=== PATIENT | female | born 1985 | race American Indian/Alaskan Native ===

== ENCOUNTER 2018-11-10 19:57 | Emergency (ER) | payer SELFPAY ==
[2018-11-10 21:01] LABS: Bacteria,Urine 1+ /HPF (Negative); Bilirubin,Urine NEG (Negative); Blood,Urine SM (Negative); Color,Urine Amber (Yellow); Hyaline Casts,Urine 2 /LPF; Mucus,Urine 1+ /HPF
[2018-11-10 21:03] LABS: HCG Qualitative,Urine Negative (Negative)
[2018-11-10] MEDS ORDERED: PEPCID IV ONE (21:19)
[2018-11-10] MEDS ORDERED: BENTYL IM ONE (21:19)
[2018-11-10] MEDS ORDERED: NACL 0.9% 1000 ML 1,000 ML IV ONE (21:19)
[2018-11-10] MEDS ORDERED: ZOFRAN IV ONE (21:19)
[2018-11-10] MEDS ORDERED: TORADOL IV ONE (21:19)
--- NOTE | 2018-11-10 21:22 | Emergency Department Report ---
ED Abdominal Pain HPI - General Chief Complaint: Abdominal Pain Stated Complaint: ABD PAIN Time Seen by Provider: 11/10/18 21:11 Source: patient, EMS Mode of arrival: Stretcher Limitations: No Limitations - History of Present Illness Initial Comments: Patient is a 33-year-old [place] female who has a past medical history of pancreatitis and chronic alcohol abuse. Patient is complaining of epigastric discomfort and nausea and vomiting 3 today. Patient states the crampy pain 6 out of 10 in severity. Patient states that the first time she was diagnosed with pancreatitis pain was a lot worse. Patient admits to drinking 2 glasses of wine today. The patient states the pain radiates diffusely. She denies any fevers chills cough cold congestion or diarrhea at this time. - Related Data Previous Rx's Medication Instructions Recorded Last Taken Type Famotidine [Pepcid] 40 mg PO QHS #10 tablet 11/10/18 Unknown Rx Ondansetron [Zofran Odt] 4 mg PO Q8HR #10 tab.rapdis 11/10/18 Unknown Rx Allergies Allergy/AdvReac Type Severity Reaction Status Date / Time No Known Allergies Allergy Unverified 11/10/18 20:12 ED Review of Systems ROS: Stated complaint: ABD PAIN Other details as noted in HPI Comment: All other systems reviewed and negative ED Past Medical Hx - Past Medical History Previous Medical History?: Yes Additional medical history: Pancreititis - Social History Smoking Status: Unknown if ever smoked - Medications Home Medications: Home Medications Medication Instructions Recorded Confirmed Last Taken Type Famotidine [Pepcid] 40 mg PO QHS #10 tablet 11/10/18 Unknown Rx Ondansetron [Zofran Odt] 4 mg PO Q8HR #10 tab.rapdis 11/10/18 Unknown Rx ED Physical Exam - General Limitations: No Limitations General appearance: alert, in no apparent distress - Head Head exam: Present: atraumatic, normocephalic - Eye Eye exam: Present: normal appearance. Absent: PERRL, EOMI - ENT ENT exam: Present: mucous membranes moist - Neck Neck exam: Present: normal inspection - Respiratory Respiratory exam: Present: normal lung sounds bilaterally. Absent: respiratory distress, wheezes, rales, rhonchi - Cardiovascular Cardiovascular Exam: Present: regular rate, normal rhythm, normal heart sounds. Absent: systolic murmur, diastolic murmur, rubs, gallop - GI/Abdominal GI/Abdominal exam: Present: soft, tenderness (epigastric tenderness to palpation), normal bowel sounds. Absent: distended, guarding, rebound, rigid - Extremities Exam Extremities exam: Present: normal inspection - Back Exam Back exam: Present: normal inspection - Neurological Exam Neurological exam: Present: alert, oriented X3 - Psychiatric Psychiatric exam: Present: normal affect, normal mood - Skin Skin exam: Present: warm, dry, intact, normal color. Absent: rash ED Course Vital Signs 11/10/18 11/10/18 11/10/18 20:03 21:53 21:58 Temperature 97.8 F Pulse Rate 97 H Respiratory 18 Rate Blood Pressure 105/67 96/62 O2 Sat by Pulse 96 Oximetry ED Medical Decision Making - Lab Data Result diagrams: 11/10/18 21:20 11/10/18 21:28 - Medical Decision Making Patient is a 33-year-old asthmatic female past medical history of alcohol abuse and pancreatitis who is presenting with epigastric discomfort and nausea vomiting. Patient is hydrated and given medicine for symptomatic relief and she is feeling improved. Lipase is within normal limits. Patient likely has alcoholic gastritis. Patient given outpatient resources regarding treatment programs the patient be discharged home with medications for symptomatic relief. Critical care attestation.: If time is entered above; I have spent that time in minutes in the direct care of this critically ill patient, excluding procedure time. ED Disposition Clinical Impression: Alcoholic gastritis Qualifiers: Chronicity: acute Gastritis bleeding: without bleeding Qualified Code(s): K29.20 - Alcoholic gastritis without bleeding Disposition: -01 TO HOME OR SELFCARE Is pt being admited?: No Does the pt Need Aspirin: No Condition: Stable Instructions: Gastritis (ED), Abuse of Alcohol (ED), At-Risk Alcohol Use (ED) Referrals: MITALI JARA MD [Primary Care Provider] - 3-5 Days Time of Disposition: 22:27
[2018-11-10 21:40] LABS: Basophils # (Auto) 0.1 K/mm3 (0.0-0.1); Basophils % (Auto) 1.8 % (0.0-1.8); Eosinophils # (Auto) 0.1 K/mm3 (0.0-0.4); Eosinophils % (Auto) 2.2 % (0.0-4.3); Hematocrit 33.5 % (30.3-42.9); Hemoglobin 11.4 gm/dl (10.1-14.3); Lymphocytes # (Auto) 1.8 K/mm3 (1.2-5.4); Lymphocytes % (Auto) 35.5 % (13.4-35.0); Mean Corpuscular HGB Conc 34 % (30-34); Mean Corpuscular Volume 101 fl (79-97); Monocytes # (Auto) 0.4 K/mm3 (0.0-0.8); Monocytes % (Auto) 7.9 % (0.0-7.3); Platelet Count 144 K/mm3 (140-440); Red Blood Count 3.31 M/mm3 (3.65-5.03); Red Cell Distribution Width 18.2 % (13.2-15.2)
[2018-11-10 21:52] LABS: BUN/Creatinine Ratio 13; Blood Urea Nitrogen 9 mg/dL (7-17); Calcium 8.3 mg/dL (8.4-10.2)
[2018-11-10 21:53] LABS: Alanine Aminotransferase 63 units/L (7-56); Albumin 4.2 g/dL (3.9-5); Hemolysis Index 5
[2018-11-10 22:35] VITALS: BP 93/61
== END 2018-11-10 23:00 | disposition home or self-care (01) ==
LOC: ED 19:57
DX: K29.20 Alcoholic gastritis without bleeding (principal); R11.2 Nausea with vomiting, unspecified
CPT/HCPCS: 36415; 80053; 81001; 81025; 83690; 85025; 96361; 96372; 96374; 96375; 99284; J0500; J1885; J2405; J7030

== ENCOUNTER 2019-02-25 10:21 | Inpatient (IN) | payer OTHER ==
[2019-02-25] MEDS ORDERED: HYDROmorphone 1 MG/1 ML INJ IV ONE ×3 (11:35→17:14)
[2019-02-25] MEDS ORDERED: ONDANSETRON 4 MG/2 ML INJ IV ONE (11:35)
[2019-02-25] MEDS ORDERED: SODIUM CHLORIDE 0.9% 1000 ML 1,000 ML IV ONE ×2 (11:35→17:14)
--- NOTE | 2019-02-25 11:39 | Emergency Department Report ---
ED Abdominal Pain HPI - General Chief Complaint: Abdominal Pain Stated Complaint: ABD PAIN Time Seen by Provider: 02/25/19 11:35 Source: EMS Mode of arrival: Wheelchair Limitations: No Limitations - History of Present Illness Initial Comments: Stomach is a very pleasant 33-year-old female who with history of alcohol abuse, hyperthyroidism and pancreatitis who presents with epigastric pain radiating to her back. 9 out of 10 severity sharp dull in nature. She admitted that she did binge drink for her birthday beginning on Wednesday to Wednesday. She drank a total of 1 gallon of liquor. She has had previous hospitalization for pancreatitis. She explains "I admit that I have a problem with alcohol." MD Complaint: abdominal pain -: Gradual, days(s) (3) Location: epigastric Radiation: back Severity: severe Severity scale (0 -10): 9 Quality: aching, sharp, dull Consistency: constant Improves With: nothing Worsens With: nothing Context: other (alcohol abuse pancreatitis) Associated Symptoms: nausea - Related Data Previous Rx's Medication Instructions Recorded Last Taken Type Famotidine [Pepcid] 40 mg PO QHS #10 tablet 11/10/18 Unknown Rx Ondansetron [Zofran Odt] 4 mg PO Q8HR #10 tab.rapdis 11/10/18 Unknown Rx Allergies Allergy/AdvReac Type Severity Reaction Status Date / Time No Known Allergies Allergy Unverified 11/10/18 20:12 ED Review of Systems ROS: Stated complaint: ABD PAIN Other details as noted in HPI Comment: All other systems reviewed and negative Constitutional: denies: fever, malaise Gastrointestinal: abdominal pain, nausea, vomiting. denies: diarrhea ED Past Medical Hx - Past Medical History Previous Medical History?: Yes Hx Asthma: Yes Additional medical history: Pancreititis - Social History Smoking Status: Current Every Day Smoker Substance Use Type: Alcohol, Marijuana Other Social History: Lives with , she is employed - Medications Home Medications: Home Medications Medication Instructions Recorded Confirmed Last Taken Type Famotidine [Pepcid] 40 mg PO QHS #10 tablet 11/10/18 Unknown Rx Ondansetron [Zofran Odt] 4 mg PO Q8HR #10 tab.rapdis 11/10/18 Unknown Rx ED Physical Exam - General Limitations: No Limitations General appearance: alert, in no apparent distress, other (appears uncomfortable pleasant insightful) - Head Head exam: Present: atraumatic, normocephalic - Eye Eye exam: Present: normal appearance - ENT ENT exam: Present: mucous membranes moist - Neck Neck exam: Present: normal inspection, full ROM - Respiratory Respiratory exam: Present: normal lung sounds bilaterally. Absent: respiratory distress, wheezes, rales, rhonchi - Cardiovascular Cardiovascular Exam: Present: regular rate, normal rhythm, normal heart sounds. Absent: systolic murmur, diastolic murmur, rubs, gallop - GI/Abdominal GI/Abdominal exam: Present: soft, normal bowel sounds. Absent: distended, tenderness, guarding, rebound - Extremities Exam Extremities exam: Present: normal inspection - Neurological Exam Neurological exam: Present: alert, oriented X3 - Psychiatric Psychiatric exam: Present: normal affect, normal mood - Skin Skin exam: Present: warm, dry, intact, normal color. Absent: rash ED Course Vital Signs 02/25/19 02/25/19 10:23 11:58 Temperature 97.8 F Pulse Rate 111 H Respiratory 18 20 Rate Blood Pressure 120/92 O2 Sat by Pulse 97 Oximetry ED Medical Decision Making - Lab Data Result diagrams: 02/25/19 12:24 02/25/19 12:24 Laboratory Results - last 24 hr 02/25/19 02/25/19 02/25/19 12:24 12:24 12:24 WBC 6.6 RBC 2.98 L Hgb 10.4 Hct 30.9 MCV 104 H MCH 35 H MCHC 34 RDW 16.4 H Plt Count 165 Lymph % (Auto) 11.1 L [place] % (Auto) 11.1 H Eos % (Auto) 0.6 Baso % (Auto) 0.8 Lymph # 0.7 L [place] # 0.7 Eos # 0.0 Baso # 0.1 Seg Neutrophils % 76.4 H Seg Neutrophils # 5.0 PT 18.3 H INR 1.54 H Sodium 135 L Potassium 2.7 L* Chloride 95.5 L Carbon Dioxide 24 Anion Gap 18 BUN 4 L Creatinine 0.5 L Estimated GFR > 60 BUN/Creatinine Ratio 8 Glucose 107 H Calcium 7.8 L Total Bilirubin 0.90 Direct Bilirubin 0.5 H Indirect Bilirubin 0.4 AST 110 H ALT 32 Alkaline Phosphatase 110 Total Protein 6.8 Albumin 3.5 L Albumin/Globulin Ratio 1.1 Lipase HCG, Qual 02/25/19 02/25/19 12:24 12:24 WBC RBC Hgb Hct MCV MCH MCHC RDW Plt Count Lymph % (Auto) [place] % (Auto) Eos % (Auto) Baso % (Auto) Lymph # [place] # Eos # Baso # Seg Neutrophils % Seg Neutrophils # PT INR Sodium Potassium Chloride Carbon Dioxide Anion Gap BUN Creatinine Estimated GFR BUN/Creatinine Ratio Glucose Calcium Total Bilirubin Direct Bilirubin Indirect Bilirubin AST ALT Alkaline Phosphatase Total Protein Albumin Albumin/Globulin Ratio Lipase 165 H HCG, Qual Negative - Radiology Data Radiology results: report reviewed CT abdomen and pelvis: Abnormal hypoenhancing lesion had a anchors measuring 4.4 cm felt to be more likely a solid mass lesion, mild peripancreatic inflammatory fat stranding Hepatic steatosis hepatomegaly - Medical Decision Making Mrs. Rose is a history of recurrent alcoholic pancreatitis recent alcohol binge this week. Lipase elevated, CT revealed inflammatory changes as well as pancreatic mass. She has persistent pain despite multiple doses of IV hydromorphone. Admitted to the hospital service and stable condition. I suspect early alcoholic liver disease with elevated liver enzyme elevated bilirubin and hepatic steatosis and hepatomegaly. Critical care attestation.: If time is entered above; I have spent that time in minutes in the direct care of this critically ill patient, excluding procedure time. ED Disposition Clinical Impression: Acute pancreatitis, Pancreatic mass, Liver disease due to alcohol Disposition: DC-09 OP ADMIT IP TO THIS HOSP Is pt being admited?: Yes Does the pt Need Aspirin: No Condition: Stable
[2019-02-25 13:04] LABS: Basophils # (Auto) 0.1 K/mm3 (0.0-0.1); Basophils % (Auto) 0.8 % (0.0-1.8); Eosinophils % (Auto) 0.6 % (0.0-4.3); Hematocrit 30.9 % (30.3-42.9); Hemoglobin 10.4 gm/dl (10.1-14.3); Lymphocytes # (Auto) 0.7 K/mm3 (1.2-5.4); Lymphocytes % (Auto) 11.1 % (13.4-35.0); Mean Corpuscular HGB Conc 34 % (30-34); Mean Corpuscular Volume 104 fl (79-97); Monocytes # (Auto) 0.7 K/mm3 (0.0-0.8); Monocytes % (Auto) 11.1 % (0.0-7.3); Platelet Count 165 K/mm3 (140-440); Red Blood Count 2.98 M/mm3 (3.65-5.03); Red Cell Distribution Width 16.4 % (13.2-15.2)
[2019-02-25 13:10] LABS: INR 1.54 (0.87-1.13)
[2019-02-25 13:39] LABS: Alanine Aminotransferase 32 units/L (7-56); Albumin 3.5 g/dL (3.9-5); BUN/Creatinine Ratio 8; Bilirubin,Direct 0.5 mg/dL (0-0.2); Blood Urea Nitrogen 4 mg/dL (7-17); Calcium 7.8 mg/dL (8.4-10.2); Hemolysis Index 2
--- NOTE | 2019-02-25 16:09 | Cat Scan Report ---
CT ABDOMEN AND PELVIS WITH CONTRAST INDICATION / CLINICAL INFORMATION: epigastric pain history of pancreatitis. TECHNIQUE: Axial CT images were obtained through the abdomen and pelvis after 100 mL Omnipaque [address] scans at this location are performed using CT dose reduction for ALARA by means of automated exposure control. COMPARISON: None available. FINDINGS: LOWER CHEST: No significant abnormality. LIVER: Enlarged liver with diffuse hepatic steatosis. No focal lesion. BILIARY SYSTEM: Mild prominence of the common bile duct without overt dilatation. It tapers smoothly in the region of the ampulla. The gallbladder is distended but has normal wall thickness. No perichol ecystic fluid. No calcified stones. PANCREAS: Pancreatic tail is unremarkable. In the pancreatic body and neck, the main duct is prominen t, with diameter about 6 mm, at upper limit of normal range. It tapers smoothly in the pancreatic hea d/ampullary region. There is abnormal hypoenhancing tissue in the region of the pancreatic head and n sherman and abutting the second portion of the duodenum, irregular and difficult to accurately measure, b ut approximately 4.4 x 4 cm in the axial plane on series 2 image 69. This is worrisome for a pancreat ic mass. There is minimal adjacent stranding of the retroperitoneal fat. No definite vascular encase ment. The celiac, SMA, and main portal vein pass near but are not enveloped by the lesion. SPLEEN: No significant abnormality. ADRENALS: No significant abnormality. KIDNEYS and URETERS: No significant abnormality. STOMACH / BOWEL: Stomach is unremarkable. Second portion of the duodenum is distended by gas in the r egion of the head of the pancreas, but there is no definite acute inflammatory obstructive change in the small intestine. Colon is mostly collapsed throughout its length with only small volume of fecal material present. There is submucosal fat deposition throughout the entire large bowel, nonspecific b ut sometimes sequela of previous episodes of inflammation in patients who have inflammatory bowel dis ease. There are a few scattered colonic diverticula but no evidence of acute diverticulitis. PERITONEUM: No free fluid. No free air. No fluid collection. LYMPH NODES: There are a few mildly prominent peripancreatic and mesenteric nodes but no overt lympha denopathy by CT size criteria and no morphologically abnormal nodes are seen. VASCULAR STRUCTURES: No significant abnormality. URINARY BLADDER: No significant abnormality. REPRODUCTIVE ORGANS: No significant abnormality. ADDITIONAL FINDINGS: None. SKELETAL SYSTEM: No significant abnormality. IMPRESSION: 1. Abnormal hypoenhancing lesion in the head of the pancreas measuring 4.4 cm in greatest dimension i s felt more likely to represent a solid mass lesion than hypoenhancement of pancreatic parenchyma due to an early/mild groove pancreatitis. There are a few mildly prominent peripancreatic nodes which ar e potentially reactive, but no definite metastatic lesion is identified. There is mild peripancreatic inflammatory fat stranding. Further endoscopic evaluation is recommended. 2. Hepatomegaly and hepatic steatosis. Signer Name: Juan Main MD Signed: 02/25/2019 4:05 PM Workstation Name: [id number]
[2019-02-25] MEDS ORDERED: diphenhydrAMINE 50 MG/ML VIAL IV ONE (16:25)
[2019-02-25] MEDS ORDERED: POTASSIUM CHLORIDE ER 20 MEQ TAB PO ONE ×2 (17:11→23:34)
--- NOTE | 2019-02-25 18:33 | History and Physical Report ---
History of Present Illness Date of examination: 02/25/19 Date of admission: 02/25/2019 Chief complaint: Epigastric pain and vomiting 3 days History of present illness: 33-year-old female with history of thyrotoxicosis, EtOH dependence and recurrent pancreatitis comes in for epigastric pain and vomiting for the last 3 days. Patient apparently elevated at 1 gallon of liquor celebrating her future birthday which happens to be on [birth year] normal. Patient binges on alcohol every week. Drinks large amounts of liquor once every week. Patient admits to alcohol dependence. Patient had pancreatitis 3-4 times in the past. Now pain is about 10 on a scale of 1-10 and intermittent in nature. Patient is sharp in nature. Intermittent. Also vomiting over 6 times today. Past Medical History Previous Medical History?: Yes Asthma: Yes Additional medical history: Pancreatitis Hyperthyroidism , standing that she is not Surgical history N/a Social History Smoking Status: Current Every Day Smoker Substance Use Type: Alcohol in large amounts every week, Marijuana regularly Lives with , she is employed Family history Htn - Medications Home Medications: Home Medications Medication Instructions Recorded Confirmed Last Taken Type Famotidine [Pepcid] 40 mg PO QHS #10 tablet 11/10/18 Unknown Rx Ondansetron [Zofran Odt] 4 mg PO Q8HR #10 tab.rapdis 11/10/18 Unknown Rx Review of Systems ROS: Stated complaint: ABD PAIN Other details as noted in HPI Comment: All other systems reviewed and negative Constitutional: denies: fever, malaise Gastrointestinal: abdominal pain, nausea, vomiting. denies: diarrhea Medications and Allergies Allergies Allergy/AdvReac Type Severity Reaction Status Date / Time No Known Allergies Allergy Unverified 11/10/18 20:12 Exam - Constitutional Vitals: Temp Pulse Resp BP Pulse Ox 97.8 F 78 18 105/63 96 02/25/19 10:23 02/25/19 18:20 02/25/19 18:20 02/25/19 18:20 02/25/19 18:20 General appearance: Present: no acute distress, well-nourished - EENT Eyes: Present: PERRL ENT: hearing intact, clear oral mucosa - Neck Neck: Present: supple, normal ROM - Respiratory Respiratory effort: normal Respiratory: bilateral: CTA - Cardiovascular Heart rate: 78 Rhythm: regular Heart Sounds: Present: S1 & S2. Absent: rub, click - Extremities Extremities: no ischemia, pulses intact, pulses symmetrical, No edema Peripheral Pulses: within normal limits - Abdominal General gastrointestinal: Present: soft, non-tender, non-distended, normal bowel sounds Localized gastrointestinal: tender: diffuse, epigastric periumbilical, guarding: diffuse, epigastric periumbilical Female genitourinary: Present: normal - Rectal Rectal Exam: deferred - Integumentary Integumentary: Present: clear, warm, dry - Musculoskeletal Musculoskeletal: gait normal, strength equal bilaterally - Psychiatric Psychiatric: appropriate mood/affect, intact judgment & insight - Neurologic Neurologic: CNII-XII intact, moves all extremities - Allied Health Allied health notes reviewed: nursing, case management Results - Labs CBC & Chem 7: 02/25/19 12:24 02/25/19 12:24 Labs: Laboratory Last Values WBC 6.6 K/mm3 (4.5-11.0) 02/25/19 12:24 RBC 2.98 M/mm3 (3.65-5.03) L 02/25/19 12:24 Hgb 10.4 gm/dl (10.1-14.3) 02/25/19 12:24 Hct 30.9 % (30.3-42.9) 02/25/19 12:24 MCV 104 fl (79-97) H 02/25/19 12:24 MCH 35 pg (28-32) H 02/25/19 12:24 MCHC 34 % (30-34) 02/25/19 12:24 RDW 16.4 % (13.2-15.2) H 02/25/19 12:24 Plt Count 165 K/mm3 (140-440) 02/25/19 12:24 Lymph % (Auto) 11.1 % (13.4-35.0) L 02/25/19 12:24 [place] % (Auto) 11.1 % (0.0-7.3) H 02/25/19 12:24 Eos % (Auto) 0.6 % (0.0-4.3) 02/25/19 12:24 Baso % (Auto) 0.8 % (0.0-1.8) 02/25/19 12:24 Lymph # 0.7 K/mm3 (1.2-5.4) L 02/25/19 12:24 [place] # 0.7 K/mm3 (0.0-0.8) 02/25/19 12:24 Eos # 0.0 K/mm3 (0.0-0.4) 02/25/19 12:24 Baso # 0.1 K/mm3 (0.0-0.1) 02/25/19 12:24 Seg Neutrophils % 76.4 % (40.0-70.0) H 02/25/19 12:24 Seg Neutrophils # 5.0 K/mm3 (1.8-7.7) 02/25/19 12:24 PT 18.3 Sec. (12.2-14.9) H 02/25/19 12:24 INR 1.54 (0.87-1.13) H 02/25/19 12:24 Sodium 135 mmol/L (137-145) L 02/25/19 12:24 Potassium 2.7 mmol/L (3.6-5.0) L* 02/25/19 12:24 Chloride 95.5 mmol/L (98-107) L 02/25/19 12:24 Carbon Dioxide 24 mmol/L (22-30) 02/25/19 12:24 Anion Gap 18 mmol/L 02/25/19 12:24 BUN 4 mg/dL (7-17) L 02/25/19 12:24 Creatinine 0.5 mg/dL (0.7-1.2) L 02/25/19 12:24 Estimated GFR > 60 ml/min 02/25/19 12:24 BUN/Creatinine Ratio 8 % 02/25/19 12:24 Glucose 107 mg/dL (65-100) H 02/25/19 12:24 Calcium 7.8 mg/dL (8.4-10.2) L 02/25/19 12:24 Total Bilirubin 0.90 mg/dL (0.1-1.2) 02/25/19 12:24 Direct Bilirubin 0.5 mg/dL (0-0.2) H 02/25/19 12:24 Indirect Bilirubin 0.4 mg/dL 02/25/19 12:24 AST 110 units/L (5-40) H 02/25/19 12:24 ALT 32 units/L (7-56) 02/25/19 12:24 Alkaline Phosphatase 110 units/L (35-129) 02/25/19 12:24 Total Protein 6.8 g/dL (6.3-8.2) 02/25/19 12:24 Albumin 3.5 g/dL (3.9-5) L 02/25/19 12:24 Albumin/Globulin Ratio 1.1 % 02/25/19 12:24 Lipase 165 units/L (13-60) H 02/25/19 12:24 HCG, Qual Negative (Negative) 02/25/19 12:24 - Imaging and Cardiology Imaging and Cardiology: CT abdomen/pelvis IMPRESSION: 1. Abnormal hypoenhancing lesion in the head of the pancreas measuring 4.4 cm in greatest dimension is felt more likely to represent a solid mass lesion than hypoenhancement of pancreatic parenchyma due to an early/mild groove pancreatitis. There are a few mildly prominent peripancreatic nodes which are potentially reactive, but no definite metastatic lesion is identified. There is mild peripancreatic inflammatory fat stranding. Further endoscopic evaluation is recommended. 2. Hepatomegaly and hepatic steatosis. Assessment and Plan Advance Directives: Yes (full code) VTE prophylaxis?: Chemical Plan of care discussed with patient/family: Yes - Patient Problems (1) Acute pancreatitis Current Visit: Yes Status: Acute Qualifiers: Pancreatitis type: alcohol induced Plan to address problem: Patient had been binge drinking couple of days ago IV normal saline for now Clear liquids Check amylase Patient counseled about stopping alcohol completely Mental health consult for alcohol dependence (2) Pancreatic mass Current Visit: Yes Status: Acute Plan to address problem: Oncology consult requested May be a benign mass (3) Hypokalemia Current Visit: Yes Status: Acute Plan to address problem: IVpotassium to be given. 40 mEq IV potassium ordered. To order more as necessary Check BMP " (4) Hyperthyroidism Current Visit: Yes Status: Chronic Plan to address problem: Patient not taking any medications Thyroid panel ordered If confirmed methimazole to be started by primary team (5) Acute gastritis Current Visit: Yes Status: Acute Qualifiers: Gastritis type: alcoholic Plan to address problem: IV Protonix for now (6) EtOH dependence Current Visit: Yes Status: Chronic Qualifiers: Substance use status: in withdrawal Plan to address problem: Patient initiated on CIWA protocol Mental health consult requested for possible alcohol rehabilitation (7) DVT prophylaxis Current Visit: Yes Status: Acute Plan to address problem: I heparin 5000 every 12
[2019-02-25] MEDS ORDERED: ONDANSETRON 4 MG/2 ML INJ IV PRN (18:35)
[2019-02-25] MEDS ORDERED: ACETAMINOPHEN 325 MG TAB PO PRN (18:35)
[2019-02-25] MEDS ORDERED: METOCLOPRAMIDE 10 MG/2 ML INJ IV PRN (18:35)
[2019-02-25] MEDS ORDERED: LORazepam 2 MG/ML VIAL IV PRN ×2 (18:43)
[2019-02-25] MEDS ORDERED: SODIUM CHLORIDE 0.9% 1000 ML 1,000 ML IV SCH (19:00)
[2019-02-25] MEDS: PANTOPRAZOLE 40 MG INJ IV SCH (21:40)
[2019-02-25] MEDS: HEPARIN 5,000 UNIT/1 ML VIAL SUB-Q SCH (21:40)
[2019-02-25] MEDS: HYDROmorphone 1 MG/1 ML INJ IV PRN (21:41)
[2019-02-25] MEDS: POTASSIUM CHLORIDE 10 MEQ 10 MEQ/100 ML BAG IV SCH (22:37)
[2019-02-25] MEDS: diphenhydrAMINE 50 MG/ML VIAL IV PRN (23:37)
[2019-02-25 23:38] LABS: Free T4 (Free Thyroxine) 1.26 ng/dL (0.76-1.46)
[2019-02-26] MEDS: POTASSIUM CHLORIDE 10 MEQ 10 MEQ/100 ML BAG IV SCH ×3 (00:13→02:13)
[2019-02-26] MEDS: HYDROmorphone 1 MG/1 ML INJ IV PRN ×6 (01:08→20:20)
[2019-02-26 07:14] LABS: Basophils # (Auto) 0.1 K/mm3 (0.0-0.1); Eosinophils # (Auto) 0.2 K/mm3 (0.0-0.4); Hematocrit 31.8 % (30.3-42.9); Hemoglobin 10.4 gm/dl (10.1-14.3); Lymphocytes # (Auto) 1.6 K/mm3 (1.2-5.4); Lymphocytes % (Auto) 17.1 % (13.4-35.0); Mean Corpuscular HGB Conc 33 % (30-34); Mean Corpuscular Volume 105 fl (79-97); Monocytes # (Auto) 1.2 K/mm3 (0.0-0.8); Platelet Count 197 K/mm3 (140-440); Red Blood Count 3.02 M/mm3 (3.65-5.03)
[2019-02-26 07:36] LABS: Alanine Aminotransferase 37 units/L (7-56); Albumin 3.7 g/dL (3.9-5); BUN/Creatinine Ratio 6; Blood Urea Nitrogen 3 mg/dL (7-17); Calcium 8.2 mg/dL (8.4-10.2); Hemolysis Index 2
[2019-02-26] MEDS: diphenhydrAMINE 50 MG/ML VIAL IV PRN ×3 (07:55→21:44)
--- NOTE | 2019-02-26 09:25 | Progress Note ---
Assessment and Plan Assessment and plan: Acute alcoholic pancreatitis -improving -started on clear liquid diet, advance as tolerated -Continue IV fluid, PRN narcotics Pancreatic mass per imaging -CT abd/pelvis showed a lesion in the head of the pancreas measuring 4.4 cm -Endoscopy for further evaluation recommended -GI consulted Transaminitis -Likely secondary to above, will monitor level Hypokalemia -Repleted and improved -We'll check magnesium level Hyponatremia -On IV fluid, will monitor level History of alcohol abuse -on CIWA protocol -Patient counseled on cessation DVT prophylaxis: Heparin Disposition: pending GI eval. d/c per clinical course History Interval history: Pt complained of abdominal pain but improved. No n/v Hospitalist Physical - Constitutional Vitals: Temp Pulse Resp BP Pulse Ox 98.8 F 105 H 18 115/81 96 02/26/19 05:21 02/26/19 05:21 02/26/19 05:21 02/26/19 05:21 02/26/19 05:21 General appearance: Present: no acute distress, well-nourished - EENT Eyes: Present: PERRL, EOM intact ENT: hearing intact, clear oral mucosa - Neck Neck: Present: supple - Respiratory Respiratory effort: normal Respiratory: bilateral: CTA - Cardiovascular Rhythm: regular Heart Sounds: Present: S1 & S2 - Extremities Extremities: No edema - Abdominal General gastrointestinal: soft, tender (RLQ and epigastric), normal bowel sounds - Integumentary Integumentary: Present: warm, dry - Psychiatric Psychiatric: appropriate mood/affect - Neurologic Neurologic: CNII-XII intact Results - Labs CBC & Chem 7: 02/26/19 06:43 02/26/19 06:43 Labs: Laboratory Last Values WBC 9.1 K/mm3 (4.5-11.0) 02/26/19 06:43 RBC 3.02 M/mm3 (3.65-5.03) L 02/26/19 06:43 Hgb 10.4 gm/dl (10.1-14.3) 02/26/19 06:43 Hct 31.8 % (30.3-42.9) 02/26/19 06:43 MCV 105 fl (79-97) H 02/26/19 06:43 MCH 35 pg (28-32) H 02/26/19 06:43 MCHC 33 % (30-34) 02/26/19 06:43 RDW 17.0 % (13.2-15.2) H 02/26/19 06:43 Plt Count 197 K/mm3 (140-440) 02/26/19 06:43 Lymph % (Auto) 17.1 % (13.4-35.0) 02/26/19 06:43 [place] % (Auto) 13.0 % (0.0-7.3) H 02/26/19 06:43 Eos % (Auto) 2.0 % (0.0-4.3) 02/26/19 06:43 Baso % (Auto) 1.0 % (0.0-1.8) 02/26/19 06:43 Lymph # 1.6 K/mm3 (1.2-5.4) 02/26/19 06:43 [place] # 1.2 K/mm3 (0.0-0.8) H 02/26/19 06:43 Eos # 0.2 K/mm3 (0.0-0.4) 02/26/19 06:43 Baso # 0.1 K/mm3 (0.0-0.1) 02/26/19 06:43 Seg Neutrophils % 66.9 % (40.0-70.0) 02/26/19 06:43 Seg Neutrophils # 6.1 K/mm3 (1.8-7.7) 02/26/19 06:43 PT 18.3 Sec. (12.2-14.9) H 02/25/19 12:24 INR 1.54 (0.87-1.13) H 02/25/19 12:24 Sodium 133 mmol/L (137-145) L 02/26/19 06:43 Potassium 3.9 mmol/L (3.6-5.0) 02/26/19 06:43 Chloride 97.2 mmol/L (98-107) L 02/26/19 06:43 Carbon Dioxide 17 mmol/L (22-30) L D 02/26/19 06:43 Anion Gap 23 mmol/L 02/26/19 06:43 BUN 3 mg/dL (7-17) L 02/26/19 06:43 Creatinine 0.5 mg/dL (0.7-1.2) L 02/26/19 06:43 Estimated GFR > 60 ml/min 02/26/19 06:43 BUN/Creatinine Ratio 6 % 02/26/19 06:43 Glucose 74 mg/dL (65-100) 02/26/19 06:43 Hemoglobin A1c 5.2 % (4-6) 02/25/19 12:21 Calcium 8.2 mg/dL (8.4-10.2) L 02/26/19 06:43 Total Bilirubin 0.90 mg/dL (0.1-1.2) 02/26/19 06:43 Direct Bilirubin 0.5 mg/dL (0-0.2) H 02/25/19 12:24 Indirect Bilirubin 0.4 mg/dL 02/25/19 12:24 AST 160 units/L (5-40) H 02/26/19 06:43 ALT 37 units/L (7-56) 02/26/19 06:43 Alkaline Phosphatase 113 units/L (35-129) 02/26/19 06:43 Total Protein 7.3 g/dL (6.3-8.2) 02/26/19 06:43 Albumin 3.7 g/dL (3.9-5) L 02/26/19 06:43 Albumin/Globulin Ratio 1.0 % 02/26/19 06:43 Amylase 98 units/L (27-131) 02/25/19 12:24 Lipase 165 units/L (13-60) H 02/25/19 12:24 TSH 4.990 mlU/mL (0.270-4.200) H 02/25/19 19:51 TSH 5.040 mlU/mL (0.270-4.200) H 02/25/19 19:51 Free T4 1.26 ng/dL (0.76-1.46) 02/25/19 19:51 HCG, Qual Negative (Negative) 02/25/19 12:24 Active Medications - Current Medications Current Medications: Generic Name Dose Route Start Last Admin Trade Name Freq PRN Reason Stop Dose Admin Acetaminophen 650 mg 02/25/19 18:35 Tylenol PO Q4H PRN Pain MILD(1-3)/Fever >100.5/DRAKE Diphenhydramine HCl 25 mg 02/25/19 22:43 02/26/19 07:55 Benadryl IV 25 mg Q6H PRN Administration Itching Heparin Sodium (Porcine) 5,000 unit 02/25/19 22:00 02/25/19 21:40 Heparin SUB-Q 5,000 unit Q12HR SIMON Administration Hydromorphone HCl 1 mg 02/25/19 18:35 02/26/19 07:50 Dilaudid IV 1 mg Q3H PRN Administration Pain , Severe (7-10) Sodium Chloride 1,000 mls @ 75 mls/hr 02/25/19 19:00 02/25/19 21:40 Nacl 0.9% 1000 Ml IV 02/26/19 12:00 75 mls/hr DIRECT SIMON Administration Folic Acid 1 mg/ Multivitamins 1,000 mls @ 125 mls/hr 02/26/19 11:00 /Minerals 10 ml/ Thiamine HCl IV 100 mg/ Sodium Chloride .BY DURATION SIMON Sodium Chloride 1,000 mls @ 125 mls/hr 02/26/19 11:00 Nacl 0.9% 1000 Ml IV .BY DURATION SIMON Lorazepam 2 mg 02/25/19 18:43 Ativan IV Q1H PRN CIWA-Ar 8-15 Lorazepam 4 mg 02/25/19 18:43 Ativan IV Q1H PRN CIWA-Ar 16-25 Metoclopramide HCl 10 mg 02/25/19 18:35 Reglan IV Q6H PRN Nausea And Vomiting Ondansetron HCl 4 mg 02/25/19 18:35 Zofran IV Q3H PRN Nausea And Vomiting Pantoprazole Sodium 40 mg 02/25/19 22:00 02/25/19 21:40 Protonix IV 40 mg BID SIMON Administration Sodium Chloride 10 ml 02/25/19 22:00 02/25/19 21:41 Sodium Chloride Flush Syringe 10 Ml IV 10 ml BID SIMON Administration Sodium Chloride 10 ml 02/25/19 18:35 Sodium Chloride Flush Syringe 10 Ml IV PRN PRN LINE FLUSH
[2019-02-26] MEDS: PANTOPRAZOLE 40 MG INJ IV SCH ×2 (10:32→21:35)
[2019-02-26] MEDS: HEPARIN 5,000 UNIT/1 ML VIAL SUB-Q SCH ×2 (10:36→21:35)
--- NOTE | 2019-02-26 10:38 | Consultation ---
REFERRING PHYSICIAN: Michel Handley MD INDICATION: 1. Abdominal pain. 2. Pancreatitis. HISTORY OF PRESENT ILLNESS: The patient is a 33-year-old black female with history of thyrotoxicosis, alcohol dependence and recurrent pancreatitis, who presents with epigastric pain with vomiting. The patient reports that she has been drinking a gallon of liquor celebrating her future birthday, which is not for another 3 days. She subsequently developed upper abdominal epigastric pain with nausea, vomiting. She subsequently came to the Emergency Room and was diagnosed with pancreatitis and admitted. The patient reports she has had bouts of pancreatitis for the last 3-4 years, approximately 6 times. The patient gives a vague history that she was at [facility] where she says she had a stent placed, but thinks it was because she could not swallow and that it was removed eventually. She denies any other specific problems or complaints. PAST MEDICAL HISTORY: 1. Thyrotoxicosis. 2. Pancreatitis. MEDICATIONS: Reviewed and updated in chart. SOCIAL HISTORY: Positive for alcohol daily and a current smoker. ALLERGIES: No known drug allergies. FAMILY HISTORY: Negative for colon cancer, IBD or liver disease. REVIEW OF SYSTEMS: GENERAL: Reports mild weakness. HEENT: No visual complaints or tinnitus. PULMONARY: No shortness of breath. No cough. No chest pain. GASTROINTESTINAL: Reports abdominal pain. All points of 13-point review of systems otherwise negative. PHYSICAL EXAMINATION: VITAL SIGNS: Temperature of 98.8, pulse 100, respirations 18, blood pressure 115/81. GENERAL: Fairly nourished, mildly weak appearing black female, in mild distress. HEENT: Pupils equal, round and reactive. PULMONARY: Clear to auscultation bilaterally. CARDIOVASCULAR: Regular rhythm. Normal S1, S2. ABDOMEN: Positive bowel sounds, soft. SKIN: No obvious rashes. LABORATORY DATA: Pertinent for white count of 9.1, hemoglobin and hematocrit of 10.4 and 31.8, platelet count of 197. Chem-7, sodium of 133, potassium 3.9, chloride 97, CO2 of 17, BUN and creatinine of 3 and 0.5. LFTs pertinent for an AST and ALT of 160 and 37, total bilirubin of 0.9. Initial lipase on presentation was 165. CT scan performed on 02/25 pertinent for of a 4.4 hypoenhancing lesion in the head of the pancreas, which may represent a solid mass versus inflammation from pancreatitis. ASSESSMENT: A 33-year-old female with history of chronic alcohol abuse and recurrent pancreatitis for the last 3 years, who was drinking heavily for upcoming birthday, which is not for 3 days, now presents with abdominal pain with increased lipase. The patient had a CT scan that showed a 4 cm lesion in the pancreatic head, which felt may not represent pancreatitis. The patient gives a vague history that she had a " at [facility] in the past and had to be removed. She reports that it was because she was having problems swallowing and feels it was in her esophagus and in her biliary tree. Management is noted below. PLAN: 1. Basic pancreatitis management with n.p.o., IV fluids and pain medicines. We will advance diet based on progress. 2. We will review CT scan. 3. MRI, MRCP to better visualize lesion. 4. If possible, we will try to get a copy of previous records from [facility]. 5. The patient may require EUS as an outpatient. 6. Alcohol abstinence discussed. 7. We will follow. 8. We will also order CA 19-9. 9. We will follow further recommendation based on progress. JOB# [id number] CAB/NTS
--- NOTE | 2019-02-26 12:45 | Consultation ---
History of Present Illness - Reason for Consult Consult date: 02/26/19 Reason for consult: Psych Eval Requesting physician: HOMERO RIVERA - Chief Complaint Chief complaint: " I'm ok , I have stomach problems" - History of Present Psychiatric Illness Patient is a 33 y/o female with history of ETOH use/abuse and chronic pancreatitis. Patient was seen for abdominal pain that is secondary to pancreatitis. She has been drinking significantly she reports, as this was her Birthday month and she has been partying daily. Patient states, " I drink because I want to and I am not about to stop, I have too many things going on" . When trying to discuss further patient becomes more guarded and stops assessment. She acknowledges ETOH use/abuse...amount unknown..preference vodka and wine. She reports use of THC...Denies SI or HI . Medications and Allergies Allergies Allergy/AdvReac Type Severity Reaction Status Date / Time No Known Allergies Allergy Unverified 11/10/18 20:12 Home Medications Medication Instructions Recorded Confirmed Last Taken Type No Known Home Medications [No 02/26/19 02/26/19 Unknown History Reported Home Medications] Active Meds: Active Medications Acetaminophen (Tylenol) 650 mg PO Q4H PRN PRN Reason: Pain MILD(1-3)/Fever >100.5/DRAKE Diphenhydramine HCl (Benadryl) 25 mg IV Q6H PRN PRN Reason: Itching Last Admin: 02/26/19 07:55 Dose: 25 mg Documented by: Heparin Sodium (Porcine) (Heparin) 5,000 unit SUB-Q Q12HR SIMON Last Admin: 02/26/19 10:36 Dose: 5,000 unit Documented by: Hydromorphone HCl (Dilaudid) 1 mg IV Q3H PRN PRN Reason: Pain , Severe (7-10) Last Admin: 02/26/19 11:11 Dose: 1 mg Documented by: Folic Acid 1 mg/ Multivitamins /Minerals 10 ml/ Thiamine HCl 100 mg/ Sodium Chloride 1,000 mls @ 125 mls/hr IV .BY DURATION SIMON Sodium Chloride (Nacl 0.9% 1000 Ml) 1,000 mls @ 125 mls/hr IV .BY DURATION SIMON Lorazepam (Ativan) 2 mg IV Q1H PRN PRN Reason: CIWA-Ar 8-15 Lorazepam (Ativan) 4 mg IV Q1H PRN PRN Reason: CIWA-Ar 16-25 Metoclopramide HCl (Reglan) 10 mg IV Q6H PRN PRN Reason: Nausea And Vomiting Ondansetron HCl (Zofran) 4 mg IV Q3H PRN PRN Reason: Nausea And Vomiting Pantoprazole Sodium (Protonix) 40 mg IV BID [facility] Last Admin: 02/26/19 10:32 Dose: 40 mg Documented by: Sodium Chloride (Sodium Chloride Flush Syringe 10 Ml) 10 ml IV BID [facility] Last Admin: 02/26/19 10:40 Dose: Not Given Documented by: Sodium Chloride (Sodium Chloride Flush Syringe 10 Ml) 10 ml IV PRN PRN PRN Reason: LINE FLUSH Past psychiatric history - past Psychiatric treatment and history Psych: Bipolar Mental Status Exam - Vital signs Last Vital Signs Temp 98.4 F 02/26/19 11:22 Pulse 89 02/26/19 11:22 Resp 16 02/26/19 11:22 BP 89/62 02/26/19 11:22 Pulse Ox 97 02/26/19 11:22 - Exam Orientation: time, place, person Affect: anxious, agitated Mood: appropriate Thought Process: Circumstantial Perceptions: none Speech: normal rate and pattern Concentration: distractible Motor activity: restless Level of consciousness: alert Memory: Intact Interaction: guarded Results Result Diagrams: 02/26/19 06:43 02/26/19 06:43 Abnormal lab results 02/25/19 02/25/19 02/25/19 Range/Units 12:24 12:24 12:24 RBC 2.98 L (3.65-5.03) M/mm3 MCV 104 H (79-97) fl MCH 35 H (28-32) pg RDW 16.4 H (13.2-15.2) % Lymph % (Auto) 11.1 L (13.4-35.0) % [place] % (Auto) 11.1 H (0.0-7.3) % Lymph # 0.7 L (1.2-5.4) K/mm3 [place] # (0.0-0.8) K/mm3 Seg Neutrophils % 76.4 H (40.0-70.0) % PT 18.3 H (12.2-14.9) Sec. INR 1.54 H (0.87-1.13) Sodium 135 L (137-145) mmol/L Potassium 2.7 L* (3.6-5.0) mmol/L Chloride 95.5 L (98-107) mmol/L Carbon Dioxide (22-30) mmol/L BUN 4 L (7-17) mg/dL Creatinine 0.5 L (0.7-1.2) mg/dL Glucose 107 H (65-100) mg/dL Calcium 7.8 L (8.4-10.2) mg/dL Direct Bilirubin 0.5 H (0-0.2) mg/dL AST 110 H (5-40) units/L Albumin 3.5 L (3.9-5) g/dL Lipase (13-60) units/L TSH (0.270-4.200) mlU/mL 02/25/19 02/25/19 02/25/19 Range/Units 12:24 19:51 19:51 RBC (3.65-5.03) M/mm3 MCV (79-97) fl MCH (28-32) pg RDW (13.2-15.2) % Lymph % (Auto) (13.4-35.0) % [place] % (Auto) (0.0-7.3) % Lymph # (1.2-5.4) K/mm3 [place] # (0.0-0.8) K/mm3 Seg Neutrophils % (40.0-70.0) % PT (12.2-14.9) Sec. INR (0.87-1.13) Sodium (137-145) mmol/L Potassium (3.6-5.0) mmol/L Chloride (98-107) mmol/L Carbon Dioxide (22-30) mmol/L BUN (7-17) mg/dL Creatinine (0.7-1.2) mg/dL Glucose (65-100) mg/dL Calcium (8.4-10.2) mg/dL Direct Bilirubin (0-0.2) mg/dL AST (5-40) units/L Albumin (3.9-5) g/dL Lipase 165 H (13-60) units/L TSH 5.040 H 4.990 H (0.270-4.200) mlU/mL 02/25/19 02/26/19 02/26/19 Range/Units 22:55 06:43 06:43 RBC 3.02 L (3.65-5.03) M/mm3 MCV 105 H (79-97) fl MCH 35 H (28-32) pg RDW 17.0 H (13.2-15.2) % Lymph % (Auto) (13.4-35.0) % [place] % (Auto) 13.0 H (0.0-7.3) % Lymph # (1.2-5.4) K/mm3 [place] # 1.2 H (0.0-0.8) K/mm3 Seg Neutrophils % (40.0-70.0) % PT (12.2-14.9) Sec. INR (0.87-1.13) Sodium 133 L (137-145) mmol/L Potassium 3.5 L D (3.6-5.0) mmol/L Chloride 97.2 L (98-107) mmol/L Carbon Dioxide 17 L D (22-30) mmol/L BUN 3 L (7-17) mg/dL Creatinine 0.5 L (0.7-1.2) mg/dL Glucose (65-100) mg/dL Calcium 8.2 L (8.4-10.2) mg/dL Direct Bilirubin (0-0.2) mg/dL AST 160 H (5-40) units/L Albumin 3.7 L (3.9-5) g/dL Lipase (13-60) units/L TSH (0.270-4.200) mlU/mL All other labs normal. Assessment and Plan Assessment and plan: Impression: 42 y/o female presented initially for abdominal pain. Evaluation for ETOH use dependence/disorder done. She is not in denial , she does not want treatment at this [facility]. Ddx: MDD, bipolar disorder, ETOH use disorder PLan: Patient is stable and being managed by IM. She is guarded at this time and refusing treatment for mental health . We discussed and reviewed her previous meds and she is refusing meds at this time. We will follow-up in 24 hours...re-evaluate for detox program Staffed with Dr. Robbi MD
[2019-02-26] MEDS: 1: FOLIC ACID 1 MG, MULTIPLE VITAMIN INJ, ADULT 10 ML, THIAMINE 100 MG in SODIUM CHLORID IV SCH ×2 (14:27→20:18)
[2019-02-26] MEDS ORDERED: SODIUM CHLORIDE 0.9% 1000 ML 1,000 ML IV SCH (20:00)
[2019-02-27] MEDS: HYDROmorphone 1 MG/1 ML INJ IV PRN ×3 (02:15→08:32)
[2019-02-27] MEDS: 1: FOLIC ACID 1 MG, MULTIPLE VITAMIN INJ, ADULT 10 ML, THIAMINE 100 MG in SODIUM CHLORID IV SCH (05:45)
[2019-02-27] MEDS: diphenhydrAMINE 50 MG/ML VIAL IV PRN (05:46)
[2019-02-27 08:13] LABS: Alanine Aminotransferase 34 units/L (7-56); Albumin 3.6 g/dL (3.9-5); BUN/Creatinine Ratio 4; Bilirubin,Direct 0.7 mg/dL (0-0.2); Blood Urea Nitrogen 2 mg/dL (7-17); Hemolysis Index 5
[2019-02-27 08:34] VITALS: BP 132/78
[2019-02-27] MEDS ORDERED: SODIUM CHLORIDE 0.9% 1000 ML 1,000 ML IV SCH (10:00)
[2019-02-27] MEDS ORDERED: POTASSIUM CHLORIDE ER 20 MEQ TAB PO ONE (10:00)
[2019-02-27] MEDS ORDERED: MAGNESIUM SULFATE 4 GM/100 ML BAG IV ONE (10:30)
--- NOTE | 2019-02-27 11:14 | Gastroenterology Progress Note ---
Assessment and Plan 1.recurrent alcoholic pancreatitis 2.pancreatic mass seen on CT 3.ETOH abuse -afebrile -WBC and H/H WNL -LFTs stable -lipase now trended down to WNL -abd CT showed 4cm lesion in pancreatic head -CA [id number] -MR/MRCP for further evaluation pending for today -continue to trend labs and supportive care with IVF, pain control, antiemetics, etc. -advance diet as tolerated -alcohol cessation encouraged/discussed with patient -may require EUS as outpatient pending MR results -will follow Subjective Date of service: 02/27/19 Principal diagnosis: pancreatic mass Interval history: No acute distress. Abd pain improving. Objective - Constitutional Vitals: Temp Pulse Resp BP Pulse Ox 98.2 F 84 17 132/78 98 02/26/19 21:13 02/27/19 08:33 02/27/19 06:16 02/27/19 08:33 02/26/19 21:13 General appearance: no acute distress - EENT Eyes: PERRL, EOM intact ENT: hearing intact - Respiratory Respiratory effort: normal - Cardiovascular Rhythm: regular - Gastrointestinal General gastrointestinal: Present: soft, tender (slight TTP), non-distended, no rmal bowel sounds - Integumentary Integumentary: Present: warm, dry - Labs CBC & Chem 7: 02/26/19 06:43 02/27/19 07:14 Labs: Laboratory Results - last 24 hr 02/27/19 07:14 Sodium 135 L Potassium 3.5 L Chloride 98.4 Carbon Dioxide 20 L Anion Gap 20 BUN 2 L Creatinine 0.5 L Estimated GFR > 60 BUN/Creatinine Ratio 4 Glucose 94 Calcium 8.0 L Magnesium 0.90 L* Total Bilirubin 1.10 Direct Bilirubin 0.7 H Indirect Bilirubin 0.4 AST 124 H ALT 34 Alkaline Phosphatase 123 Total Protein 7.2 Albumin 3.6 L Albumin/Globulin Ratio 1.0 Lipase 50
[2019-02-27] MEDS ORDERED: THIAMINE 100 MG, FOLIC ACID 1 MG, MULTIPLE VITAMIN INJ, ADULT 10 ML in SODIUM CHLORIDE ... IV SCH (12:00)
--- NOTE | 2019-02-27 12:36 | Progress Note ---
Subjective - Reason for Consult Consult date: 02/27/19 Reason for consult: Psychiatry Follow-up - Chief Complaint Chief complaint: "I know my drinking can be a problem" 33 y.o. AA female who has a hx of etoh abuse and chronic pancreatitis. Psychiatry was consulted to see the patient for ETOH. Today the patient was calm during the assessment. She stated having a long hx of alcohol abuse. She stated that she drink as often as she can. She stated that she drink because she enjoy the taste. She stated that she have completed detox in the past, but relapse. She is aware of the dangers of excessive alcohol (etoh) intake. She denies that she has a trigger that cause her to consume large amounts of alcohol (etoh). She stated that she would like information about rehab services. She denies SI/HI's and AVH's. She did state that her "sleep" have been altered since being admitted to the hospital. Mental Status Exam - Vital signs Last Vital Signs Temp 98.2 F 02/26/19 21:13 Pulse 84 02/27/19 08:33 Resp 17 02/27/19 06:16 BP 132/78 02/27/19 08:33 Pulse Ox 98 02/26/19 21:13 - Exam Narrative exam: MSE: Appearance: calm Behavior: regular eye contact Speech: regular rate and tone Mood: "okay" Affect: congruent to mood Thought Process: circumstantial Thought Content: denies SI/HI's and AVH's Motor Activity: lying in bed Cognition: A/O x3 Insight: fair Judgment: variable Assessment and Plan Impression: Alcohol Use DO. Today the patient was calm and cooperative during the assessment. DDx: R/O Mood Do Recommendation/Plan: Continue CIWA that being managed by the hospitalist. Start Melatonin 5 mg PO HS for sleep. Discussed the importance to abstain from alcohol consumption (etoh) with the patient, she verbalized understanding. The patient is has Dilaudid/Ativan per the CIWA. Recommend not giving both medication concurrently. Will follow up with the patient in 24 hours. Dispo: The patient can follow up with [facility] for outpatient rehab services. Staffed with Dr Waldemar Culp.
--- NOTE | 2019-02-27 13:03 | Magnetic Resonance Report ---
MR abdomen MRCP INDICATION: Previous abnormal CT of the abdomen and pelvis demonstrating a suspected pancreatic mass. Evaluate fo r biliary obstruction. TECHNIQUE: Multiplanar, multisequence MR images were obtained through the abdomen without contrast. COMPARISON: CT abdomen and pelvis with contrast from 02/25/2019. FINDINGS: Lower chest: No significant abnormality. Liver: No significant abnormality. Biliary: Tiny stones and/or a small amount of sludge is seen in the gallbladder without evidence of a cute cholecystitis. No biliary ductal dilatation is seen. No choledocholithiasis is identified. Pancreas: There is a similar suspected mass arising from the pancreatic head and measuring 3.3 x 3.3 cm on image 30 of series 5. Pancreatic ductal dilatation is again seen. Spleen: No significant abnormality. Adrenals: No significant abnormality. Kidneys: No significant abnormality. GI tract: No significant abnormality is seen along the stomach or the visualized portions of the smal l bowel/colon. The appendix is not seen. Peritoneum: No free fluid or fluid collection is identified. Lymph nodes: No significant adenopathy. Vasculature: No significant abnormality. Bones: No significant abnormality. Additional findings: None. IMPRESSION: 1. Sludge versus cholelithiasis without evidence of acute cholecystitis. 2. No biliary obstruction or distinct choledocholithiasis. 3. Pancreatic head mass as above is incompletely evaluated in the absence of contrast, but is concern ing for adenocarcinoma until proven otherwise. EUS may be helpful for further evaluation and biopsy. Signer Name: Juan Wells MD Signed: 02/27/2019 12:58 PM Workstation Name: [id number]
[2019-02-27] MEDS: HEPARIN 5,000 UNIT/1 ML VIAL SUB-Q SCH (13:27)
--- NOTE | 2019-02-27 13:52 | Event Note ---
Date: 02/27/19 Contacted by nursing (Dianne CUELLO) at 1314, stating that patient is requesting to be discharged and threatening to sign out AMA. Discussed results of MRI which showed pancreatic head mass concerning for adenocarcinoma and recommendations for further evaluation as outpatient with an EUS with patient (understanding voiced). Recommend advancing diet. If patient is able to tolerate advancement in diet, okay to be d/c per GI standpoint with f/u in clinic ~1-2 weeks for further workup as above.
[2019-02-27] MEDS: PANTOPRAZOLE 40 MG INJ IV SCH (15:05)
--- NOTE | 2019-02-27 15:42 | Discharge Summary ---
Providers - Providers Date of Admission: 02/25/19 18:35 Attending physician: MACK GILLIS MD 02/25/19 20:04 Consult to Mental Health [CONS] Routine Reason For Exam: alcohol rehabilitation if patient agrees Place consult to:: NGOZI Notified:: NGOZI Phone number called:: [phone] Was contact made?: Yes If yes, spoke with:: NGOZI Time called:: 10:50 02/26/19 07:52 Consult to Physician [CONS] Routine Comment: Consulting Provider: SHAN CARRERA Physician Instructions: Reason For Exam: PANCREATIC MASS Primary care physician: CAKE PULLER Hospitalization Condition: Stable Hospital course: 33-year-old woman with history of thyrotoxicosis, alcohol dependence and recurrent pancreatitis. She admitted to drinking a gallon of liquor to celebrate her birthday which is coming up on Wednesday. She drinks large amounts of alcohol at least once a week. And has had episodes of pancreatitis at least 4 times in the past. She was treated with bowel rest IV fluids and pain medications. Her electrolytes were repleted. The patient clinically improved. She had a psychiatric consult, and psychiatry recommended outpatient follow-up on melatonin as needed for sleep. She was seen by GI, MRCP was done which showed pancreatic head mass which was concerning for adenocarcinoma. She is recommended for outpatient follow-up for EUS. Her diet was advanced that she tolerated it well prior to discharge. -Preventative health counseling performed for 17 minutes Tobacco abuse/dependence Smoking cessation counseling performed for 10 minutes, nicotine patches when necessary Patient was planned for discharge, but unfortunately she signed out AGAINST MEDICAL ADVICE before her prescriptions could be prepared for her Diagnosis Acute on chronic pancreatitis Alcohol abuse and dependence Hypomagnesemia Hypokalemia Tobacco abuse/dependence Insomnia Disposition: DC-07 LEFT AGAINST MED ADVICE Time spent for discharge: 33 mins Core Measure Documentation - Palliative Care Palliative Care/ Comfort Measures: Not Applicable - Core Measures Any of the following diagnoses?: none Exam - Constitutional Vitals: Temp Pulse Resp BP Pulse Ox 98.2 F 84 17 132/78 98 02/26/19 21:13 02/27/19 08:33 02/27/19 06:16 02/27/19 08:33 02/26/19 21:13 General appearance: Present: no acute distress, well-nourished - EENT Eyes: Present: PERRL ENT: hearing intact, clear oral mucosa - Neck Neck: Present: supple, normal ROM - Respiratory Respiratory effort: normal Respiratory: bilateral: CTA - Cardiovascular Heart Sounds: Present: S1 & S2. Absent: rub, click - Extremities Extremities: pulses symmetrical, No edema Peripheral Pulses: within normal limits - Abdominal General gastrointestinal: Present: soft, non-tender, non-distended, normal bowel sounds Female genitourinary: Present: normal - Integumentary Integumentary: Present: clear, warm, dry - Musculoskeletal Musculoskeletal: gait normal, strength equal bilaterally - Psychiatric Psychiatric: appropriate mood/affect, intact judgment & insight - Neurologic Neurologic: CNII-XII intact, moves all extremities Plan Follow up with: PRIMARY CARE,MD [Primary Care Provider] - 3-5 Days Prescriptions: Folic Acid [Folvite] 1 mg PO DAILY #30 tablet Nicotine [Habitrol] 14 mg TD DAILY #30 patch Magnesium Oxide [Magnesium] 400 mg PO DAILY #7 capsule Melatonin [Melatonin 5MG TAB] 5 mg PO HS #30 tablet Multivitamin Tab [Multiple Vitamin TAB (Theragran)] 1 each PO DAILY #30 tablet oxyCODONE /ACETAMINOPHEN [Percocet 5/325] 1 tab PO Q6HR PRN #14 tablet PRN Reason: Pain Thiamine [Vitamin B-1] 100 mg PO QDAY #30 tablet
[2019-02-27] MEDS ORDERED: MELATONIN 5 MG TAB PO SCH (22:00)
[2019-03-01] MEDS ORDERED: FOLIC ACID 1 MG TAB PO SCH (10:00)
[2019-03-01] MEDS ORDERED: MULTIVITAMINS ,THERAPEUTIC TAB PO SCH (10:00)
[2019-03-01] MEDS ORDERED: THIAMINE 100 MG TAB PO SCH (10:00)
== END 2019-02-27 14:00 | disposition left against medical advice (07) | DRG 391 ==
LOC: ED 10:21 → 3A 18:35
PROVIDERS: ADMIT Internal Medicine; ATTEND Internal Medicine
DX: K29.20 Alcoholic gastritis without bleeding (principal); K85.20 Alcohol induced acute pancreatitis without necrosis or infection; E87.1 Hypo-osmolality and hyponatremia; K86.0 Alcohol-induced chronic pancreatitis; F17.200 Nicotine dependence, unspecified, uncomplicated; F10.20 Alcohol dependence, uncomplicated; E83.42 Hypomagnesemia; E87.6 Hypokalemia; G47.00 Insomnia, unspecified; R74.0 Nonspecific elevation of levels of transaminase and lactic acid dehydrogenase [LDH]; K86.9 Disease of pancreas, unspecified; Z71.6 Tobacco abuse counseling; Z82.49 Family history of ischemic heart disease and other diseases of the circulatory system
CPT/HCPCS: 36415; 74177; 74181; 80048; 80053; 80076; 82150; 83036; 83690; 83735; 84132; 84439; 84443; 84703; 85025; 85610; 86301; 87116; 96374; 96375; 96376; 99406; G0378; C9113; J1170; J1200; J1644; J2060; J2405; J3411; J3475; J3480; J7030; Q9967

== ENCOUNTER 2020-09-13 17:48 | Observation (INO) | payer SELFPAY ==
[2020-09-13] MEDS ORDERED: SODIUM CHLORIDE 0.9% 1000 ML 1,000 ML IV ONE (19:46)
[2020-09-13] MEDS ORDERED: DICYCLOMINE 20 MG/2 ML INJ IM ONE (19:46)
[2020-09-13] MEDS ORDERED: ONDANSETRON 4 MG/2 ML INJ IV ONE ×2 (19:46→23:25)
[2020-09-13] MEDS ORDERED: FAMOTIDINE 20 MG/2 ML INJ IV ONE (19:46)
--- NOTE | 2020-09-13 19:49 | Event Note ---
ED Screening Note Date of service: 09/13/20 Time: 19:47 ED Screening Note: Patient is a 35-year-old -Syrian female with a history of chronic alcohol abuse and chronic alcoholic pancreatitis who presents to the ED with complaint of acute onset persistent severe epigastric pain that radiated to the left upper quadrant and mid posterior thoracic area with intractable nausea and vomiting for the last 2 days. Patient admits to heavy alcohol consumption in the last 2 days. Patient denies dizziness, syncope, hemoptysis, hematemesis, diarrhea, dysuria, urinary frequency and urgency, fever, chills, cough, shortness of breath or chest pain. This initial assessment/diagnostic orders/clinical plan/treatment(s) is/are subject to change based on patients health status, clinical progression and re- assessment by fellow clinical providers in the ED. Further treatment and workup at subsequent clinical providers discretion. Patient/guardian urged not to elope from the ED as their condition may be serious if not clinically assessed and managed. Initial orders include: CBC, CMP, hCG serum, UA, lipase, abdomen pelvis CT scan with contrast
[2020-09-13 20:46] LABS: Basophils # (Auto) 0.1 K/mm3 (0.0-0.1); Basophils % (Auto) 0.8 % (0.0-1.8); Eosinophils % (Auto) 0.4 % (0.0-4.3); Hematocrit 35.7 % (30.3-42.9); Hemoglobin 12.1 gm/dl (10.1-14.3); Lymphocytes # (Auto) 1.9 K/mm3 (1.2-5.4); Mean Corpuscular HGB Conc 34 % (30-34); Mean Corpuscular Volume 99 fl (79-97); Monocytes # (Auto) 0.8 K/mm3 (0.0-0.8); Monocytes % (Auto) 7.6 % (0.0-7.3); Platelet Count 109 K/mm3 (140-440); Red Cell Distribution Width 19.5 % (13.2-15.2)
[2020-09-13 21:06] LABS: Bacteria,Urine 1+ /HPF (Negative); Bilirubin,Urine MOD (Negative); Blood,Urine NEG (Negative); Color,Urine Amber (Yellow); Mucus,Urine 2+ /HPF
[2020-09-13 21:09] LABS: WBC,Urine > 182.0 /HPF (0.0-6.0)
[2020-09-13 21:15] LABS: Ictotest,Urine Positive (Negative)
[2020-09-13 21:52] LABS: Alanine Aminotransferase 34 units/L (7-56); Albumin 4.2 g/dL (3.9-5); Blood Urea Nitrogen 5 mg/dL (7-17); Hemolysis Index 6
[2020-09-13 21:57] LABS: BUN/Creatinine Ratio 13
[2020-09-13] MEDS ORDERED: fentaNYL 100 MCG/2 ML INJ IV ONE (23:25)
[2020-09-13] MEDS ORDERED: cefTRIAXone/NS 1 GM/50 ML 1 GM/50 ML BAG IV ONE (23:25)
--- NOTE | 2020-09-13 23:31 | Emergency Department Report ---
HPI - General Chief Complaint: Abdominal Pain Time Seen by Provider: 09/13/20 23:16 - HPI HPI: Room 21 The patient is a 35-year-old female present with a chief complaint of abdominal pain. Patient states her pain began yesterday with bilateral flank and epigastric pain described as sharp and constant in nature. Patient admits to nausea vomiting but denies diarrhea or fever. Patient denies dysuria or hematuria. Patient currently gives her pain a score of 9/10 ED Past Medical Hx - Past Medical History Previous Medical History?: Yes Hx Asthma: Yes Additional medical history: Pancreatitis. Thyroid disease - Surgical History Past Surgical History?: No - Family History Family history: no significant - Social History Smoking Status: Current Every Day Smoker (1/7 pack/day) Substance Use Type: None (Denies illicit drug use), Alcohol (Every other day) - Medications Home Medications: Home Medications Medication Instructions Recorded Confirmed Last Taken Type Folic Acid [Folvite] 1 mg PO DAILY #30 tablet 02/27/19 Unknown Rx Magnesium Oxide [Magnesium] 400 mg PO DAILY #7 capsule 02/27/19 Unknown Rx Melatonin [Melatonin 5MG TAB] 5 mg PO HS #30 tablet 02/27/19 Unknown Rx Multivitamin Tab [Multiple Vitamin 1 each PO DAILY #30 tablet 02/27/19 Unknown Rx TAB (Theragran)] Nicotine [Habitrol] 14 mg TD DAILY #30 patch 02/27/19 Unknown Rx Thiamine [Vitamin B-1] 100 mg PO QDAY #30 tablet 02/27/19 Unknown Rx oxyCODONE /ACETAMINOPHEN [Percocet 1 tab PO Q6HR PRN #14 tablet 02/27/19 Unknown Rx 5/325] ED Review of Systems ROS: Stated complaint: ABD PAINS Other details as noted in HPI Constitutional: denies: fever Eyes: denies: eye pain ENT: denies: throat pain Respiratory: no symptoms reported Cardiovascular: denies: chest pain Endocrine: no symptoms reported Gastrointestinal: abdominal pain, nausea, vomiting. denies: diarrhea Genitourinary: denies: dysuria, hematuria Musculoskeletal: denies: back pain Neurological: denies: headache Physical Exam - Physical Exam Vital Signs: Vital Signs 09/13/20 19:26 Temperature 98.6 F Pulse Rate 92 H Respiratory 16 Rate Blood Pressure 127/79 O2 Sat by Pulse 99 Oximetry Physical Exam: GENERAL: The patient is well-developed well-nourished female lying on stretcher not appearing to be in acute distress. [] HEENT: Normocephalic. Atraumatic. Extraocular motions are intact. Patient has moist mucous membranes. NECK: Supple. Trachea midline CHEST/LUNGS: Clear to auscultation. There is no respiratory distress noted. HEART/CARDIOVASCULAR: Regular. There is no tachycardia. There is no gallop rub or murmur. ABDOMEN: Abdomen is soft, with mild discomfort to palpation in the epigastric and left upper quadrant. No guarding. Patient has normal bowel sounds. There is no abdominal distention. SKIN: There is no rash. There is no edema. There is no diaphoresis. NEURO: The patient is awake, alert, and oriented. The patient is cooperative. The patient has no focal neurologic deficits. The patient has normal speech MUSCULOSKELETAL: There is no CVA tenderness bilaterally. There is no evidence of acute injury. ED Course Vital Signs 09/13/20 19:26 Temperature 98.6 F Pulse Rate 92 H Respiratory 16 Rate Blood Pressure 127/79 O2 Sat by Pulse 99 Oximetry - Reevaluation(s) Reevaluation #1: 09/14/20 01:00 Patient states her pain is improved slightly to a 6/10 but she is still in pain. Patient states she never had follow-up for the pancreatic mass seen on her CT abdomen pelvis performed here in 2019. We will admit the patient to the hospital for pain control and further management ED Medical Decision Making - Lab Data Result diagrams: 09/13/20 20:11 09/13/20 21:35 Laboratory Tests 09/13/20 09/13/20 09/13/20 20:11 20:11 20:11 WBC 10.6 RBC 3.60 L Hgb 12.1 Hct 35.7 MCV 99 H MCH 34 H MCHC 34 RDW 19.5 H Plt Count 109 L Lymph % (Auto) 18.0 [place] % (Auto) 7.6 H Eos % (Auto) 0.4 Baso % (Auto) 0.8 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) 1.9 [place] # (Auto) 0.8 Eos # (Auto) 0.0 Baso # (Auto) 0.1 Seg Neutrophils % 73.2 H Seg Neutrophils # 7.7 Sodium Potassium Chloride Carbon Dioxide Anion Gap BUN Creatinine Estimated GFR BUN/Creatinine Ratio Glucose Calcium Total Bilirubin AST ALT Alkaline Phosphatase Total Protein Albumin Albumin/Globulin Ratio Lipase 35 HCG, Qual Negative Urine Color Urine Turbidity Urine pH Ur Specific Harriet Urine Protein Urine Glucose (UA) Urine Ketones Urine Blood Urine Nitrite Urine Bilirubin Urine Ictotest Urine Urobilinogen Ur Leukocyte Esterase Urine WBC (Auto) Urine RBC (Auto) U Epithel Cells (Auto) Urine Bacteria (Auto) Ur Transition Epith Cell Urine Mucus 09/13/20 09/13/20 20:37 21:35 WBC RBC Hgb Hct MCV MCH MCHC RDW Plt Count Lymph % (Auto) [place] % (Auto) Eos % (Auto) Baso % (Auto) 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) [place] # (Auto) Eos # (Auto) Baso # (Auto) Seg Neutrophils % Seg Neutrophils # Sodium 134 L Potassium 4.1 Chloride 92.4 L Carbon Dioxide 23 Anion Gap 23 BUN 5 L Creatinine 0.4 L Estimated GFR > 60 BUN/Creatinine Ratio 13 Glucose 84 Calcium 9.0 Total Bilirubin 2.80 H AST 209 H ALT 34 Alkaline Phosphatase 313 H Total Protein 8.0 Albumin 4.2 Albumin/Globulin Ratio 1.1 Lipase HCG, Qual Urine Color Eliz Urine Turbidity Slightly-cloudy Urine pH 6.0 Ur Specific Harriet 1.025 Urine Protein 100 mg/dl Urine Glucose (UA) Neg Urine Ketones 20 Urine Blood Neg Urine Nitrite Neg Urine Bilirubin Mod Urine Ictotest Positive Urine Urobilinogen 4.0 Ur Leukocyte Esterase Lg Urine WBC (Auto) > 182.0 H Urine RBC (Auto) 4.0 U Epithel Cells (Auto) 2.0 Urine Bacteria (Auto) 1+ Ur Transition Epith Cell 4 Urine Mucus 2+ - Radiology Data Radiology results: report reviewed (CT abdomen pelvis), image reviewed (CT abdomen pelvis) [address] [address] Cat Scan Report Signed Patient: SARAH MITTAL MR#: [id number] [birth year] : 1985 Acct:[id number] Age/Sex: 35 / F ADM Date: 09/13/20 Loc: ED Attending Dr: Ordering Physician: JONATHAN NICOLE Date of Service: 09/13/20 Procedure(s): CT abdomen pelvis w con Accession Number(s): [id number] cc: JONATHAN NICOLE CT ABDOMEN AND PELVIS WITH IV CONTRAST INDICATION: Abdominal pain. History of alcoholic pancreatitis and possible pancreatic mass TECHNIQUE: Following the administration of intravenous contrast, multiple axial CT images of the abdomen and pelvis were acquired. Sagittal and coronal reformats were obtained. All CT performed at this facility utilize dose reduction techniques including automated exposure control, iterative reconstruction and weight based dosing when appropriate to reduce patient radiation dose to as low as reasonably achievable. COMPARISON: CT of the abdomen and pelvis, 02/25/2019 FINDINGS: Limited imaging of the bilateral lung bases demonstrates no acute abnormality. ABDOMEN: There is mild to moderate inflammatory stranding and masslike appearance of the head and proximal body of the pancreas appearing similar to the previous study. The pancreatic duct is again noted to be mildly prominent but overall has improved since the previous study. The liver is moderately decreased in attenuation. There is a trace amount of perihepatic free fluid. The bilateral adrenal glands and bilateral kidneys show no evidence of acute abnormality. The abdominal aorta is normal in caliber. There is no evidence of bowel obstruction. The appendix is visualized and appears normal. PELVIS: There is a small to moderate amount of free pelvic fluid. The uterus and urinary bladder appear within normal limits. BONES AND SOFT TISSUES: No significant abnormality. IMPRESSION: 1. Mild to moderate inflammatory stranding and masslike appearance of the pancreas as described above. This appears similar but not identical to the previous study of 2019. Given the inflammatory stranding and small amount of perihepatic fluid, findings are favored to represent pancreatitis. An underlying mass lesion would be difficult to exclude as mentioned on the patient's previous imaging. 2. Small to moderate amount of free pelvic fluid. Signer Name: Adriana Pinzon MD Signed: 09/14/2020 12:34 AM Workstation Name: [id number] Transcribed By: EB Dictated By: Adriana Pinzon MD Electronically Authenticated By: Adriana Pinzon MD Signed Date/Time: 09/14/20 0034 DD/ 0026 TD/TT: Print Cancel - Medical Decision Making Patient states she has not had GI follow-up for the pancreatic mass that was seen on her CT abdomen pelvis in 2019. - Differential Diagnosis Pancreatitis, gastritis, peptic ulcer disease, pyelonephritis, UTI Critical care attestation.: If time is entered above; I have spent that time in minutes in the direct care of this critically ill patient, excluding procedure time. ED Disposition Clinical Impression: Acute pancreatitis, Pancreatic mass, UTI (urinary tract infection) Disposition: DC-09 OP ADMIT IP TO THIS HOSP Is pt being admited?: Yes Does the pt Need Aspirin: No Condition: Fair Instructions: Abdominal Pain (ED) Referrals: MITALI JARA MD [Primary Care Provider] - 3-5 Days Time of Disposition: 01:01 (Hospitalist paged (Dr Booker))
[2020-09-14] MEDS ORDERED: FAMOTIDINE 20 MG/2 ML INJ IV ONE (00:18)
--- NOTE | 2020-09-14 00:38 | Cat Scan Report ---
CT ABDOMEN AND PELVIS WITH IV CONTRAST INDICATION: Abdominal pain. History of alcoholic pancreatitis and possible pancreatic mass TECHNIQUE: Following the administration of intravenous contrast, multiple axial CT images of the abdo men and pelvis were acquired. Sagittal and coronal reformats were obtained. All CT performed at this facility utilize dose reduction techniques including automated exposure control, iterative reconstru ction and weight based dosing when appropriate to reduce patient radiation dose to as low as reasonab ly achievable. COMPARISON: CT of the abdomen and pelvis, 02/25/2019 FINDINGS: Limited imaging of the bilateral lung bases demonstrates no acute abnormality. ABDOMEN: There is mild to moderate inflammatory stranding and masslike appearance of the head and proximal bod y of the pancreas appearing similar to the previous study. The pancreatic duct is again noted to be m ildly prominent but overall has improved since the previous study. The liver is moderately decreased in attenuation. There is a trace amount of perihepatic free fluid. The bilateral adrenal glands and bilateral kidneys show no evidence of acute abnormality. The abdomin al aorta is normal in caliber. There is no evidence of bowel obstruction. The appendix is visualized and appears normal. PELVIS: There is a small to moderate amount of free pelvic fluid. The uterus and urinary bladder appear withi n normal limits. BONES AND SOFT TISSUES: No significant abnormality. IMPRESSION: 1. Mild to moderate inflammatory stranding and masslike appearance of the pancreas as described above . This appears similar but not identical to the previous study of 2019. Given the inflammatory strand ing and small amount of perihepatic fluid, findings are favored to represent pancreatitis. An underly ing mass lesion would be difficult to exclude as mentioned on the patient's previous imaging. 2. Small to moderate amount of free pelvic fluid. Signer Name: Adriana Pinzon MD Signed: 09/14/2020 12:34 AM Workstation Name: [id number]
[2020-09-14] MEDS ORDERED: ACETAMINOPHEN 325 MG TAB PO PRN (01:16)
[2020-09-14] MEDS ORDERED: ONDANSETRON 4 MG/2 ML INJ IV PRN (01:16)
--- NOTE | 2020-09-14 01:26 | History and Physical Report ---
History of Present Illness Date of examination: 09/14/20 Date of admission: 09/14/20 01:05 Chief complaint: Abdominal Pain History of present illness: 35-year-old -Omani female with known history of asthma, pancreatitis and thyroid disease in the past presents to the emergency room today complaining of abdominal pain. Abdominal pain was said to have started about 24 hours ago. Pain is mainly in the epigastric region and also in the flanks bilaterally. She has had associated nausea and vomiting but denies any diarrhea. Denies any fever or chills, no chest pain or shortness of breath, no headache or dizziness. Patient denies any hematuria or dysuria. On a scale of 10 pain was about 9/10 in severity. No known relieving or exacerbating factor. Patient denies any sick contacts and no recent travel. Denies any contact with anyone with COVID-19. Patient admits to drinking alcohol almost on a daily basis and she is also a current daily smoker. She denies any illicit drug use. Review of her records indicates she was in the hospital about 2 years ago and admitted with similar symptoms which she signed out AGAINST MEDICAL ADVICE. Work-up in the emergency room today reveals UTI. Elevated AST of 209. CT of the abdomen and pelvis reveals mild to moderate inflammatory stranding and masslike appearance of the pancreas. Findings are favored to represent pancreatitis. Patient is being admitted for UTI, abdominal pain possibly secondary to pancreatitis. Past History Past Medical History: other (Asthma,Pancreatitis) Past Surgical History: No surgical history Social history: smoking (Current daily smoker), alcohol abuse (Drinks alcohol almost every other dsay.) Family history: no significant family history Medications and Allergies Allergies Allergy/AdvReac Type Severity Reaction Status Date / Time No Known Allergies Allergy Unverified 11/10/18 20:12 Home Medications Medication Instructions Recorded Confirmed Last Taken Type Folic Acid [Folvite] 1 mg PO DAILY #30 tablet 02/27/19 Unknown Rx Magnesium Oxide [Magnesium] 400 mg PO DAILY #7 capsule 02/27/19 Unknown Rx Melatonin [Melatonin 5MG TAB] 5 mg PO HS #30 tablet 02/27/19 Unknown Rx Multivitamin Tab [Multiple Vitamin 1 each PO DAILY #30 tablet 02/27/19 Unknown Rx TAB (Theragran)] Nicotine [Habitrol] 14 mg TD DAILY #30 patch 02/27/19 Unknown Rx Thiamine [Vitamin B-1] 100 mg PO QDAY #30 tablet 02/27/19 Unknown Rx oxyCODONE /ACETAMINOPHEN [Percocet 1 tab PO Q6HR PRN #14 tablet 02/27/19 Unknown Rx 5/325] Active Meds: Active Medications Acetaminophen (Acetaminophen 325 Mg Tab) 650 mg PO Q4H PRN PRN Reason: Pain MILD(1-3)/Fever >100.5/DRAKE Sodium Chloride (Nacl 0.9% 1000 Ml) 1,000 mls @ 150 mls/hr IV DIRECT SIMON Ceftriaxone Sodium (Rocephin/Ns 1 Gm/50 Ml) 1 gm in 50 mls @ 100 mls/hr IV Q24H SIMON; Protocol Morphine Sulfate (Morphine 2 Mg/1 Ml Inj) 2 mg IV Q4H PRN PRN Reason: Pain, Moderate (4-6) Ondansetron HCl (Ondansetron 4 Mg/2 Ml Inj) 4 mg IV Q8H PRN PRN Reason: Nausea And Vomiting Sodium Chloride (Sodium Chloride 0.9% 10 Ml Flush Syringe) 10 ml IV BID SIMON Sodium Chloride (Sodium Chloride 0.9% 10 Ml Flush Syringe) 10 ml IV PRN PRN PRN Reason: LINE FLUSH Review of Systems Constitutional: no fever, no chills Ears, nose, mouth and throat: no nasal congestion, no sore throat Cardiovascular: no chest pain, no palpitations Respiratory: no cough, no shortness of breath Gastrointestinal: abdominal pain, nausea, vomiting, no diarrhea, no consti pation, no BRBPR, no melena Genitourinary Female: no pelvic pain, no dysuria, no hematuria Musculoskeletal: no neck pain, no low back pain Integumentary: no rash, no pruritis Neurological: no headaches, no confusion Psychiatric: no anxiety, no depression Endocrine: no polyphagia, no polydipsia, no polyuria, no nocturia Exam - Constitutional Vitals: Temp Pulse Resp BP Pulse Ox 98.6 F 92 H 16 127/79 99 09/13/20 19:26 09/13/20 19:26 09/13/20 19:26 09/13/20 19:26 09/13/20 19:26 General appearance: Present: no acute distress, well-nourished - EENT Eyes: Present: PERRL, EOM intact. Absent: scleral icterus ENT: hearing intact, clear oral mucosa, dentition normal - Neck Neck: Present: supple, normal ROM - Respiratory Respiratory effort: normal Respiratory: bilateral: CTA - Cardiovascular Rhythm: regular Heart Sounds: Present: S1 & S2. Absent: gallop, systolic murmur, diastolic murmur, rub, click - Extremities Extremities: no ischemia, pulses intact, pulses symmetrical, No edema, normal temperature, normal color, Full ROM Peripheral Pulses: within normal limits - Abdominal General gastrointestinal: Present: soft, tender (Tenderness in the epigastric region, no guarding and no rebound tenderness.), non-distended, normal bowel sounds. Absent: mass - Integumentary Integumentary: Present: clear, warm, dry. Absent: rash - Musculoskeletal Musculoskeletal: strength equal bilaterally - Psychiatric Psychiatric: appropriate mood/affect, intact judgment & insight, memory intact, cooperative - Neurologic Neurologic: CNII-XII intact, no focal deficits, moves all extremities Results - Labs CBC & Chem 7: 09/13/20 20:11 09/13/20 21:35 Labs: Abnormal lab results 09/13/20 09/13/20 09/13/20 Range/Units 20:11 20:37 21:35 RBC 3.60 L (3.65-5.03) M/mm3 MCV 99 H (79-97) fl MCH 34 H (28-32) pg RDW 19.5 H (13.2-15.2) % Plt Count 109 L (140-440) K/mm3 [place] % (Auto) 7.6 H (0.0-7.3) % Seg Neutrophils % 73.2 H (40.0-70.0) % Sodium 134 L (137-145) mmol/L Chloride 92.4 L (98-107) mmol/L BUN 5 L (7-17) mg/dL Creatinine 0.4 L (0.6-1.2) mg/dL Total Bilirubin 2.80 H (0.1-1.2) mg/dL AST 209 H (5-40) units/L Alkaline Phosphatase 313 H (35-129) units/L Urine WBC (Auto) > 182.0 H (0.0-6.0) /HPF Assessment and Plan - Patient Problems (1) UTI (urinary tract infection) Current Visit: Yes Status: Acute Plan to address problem: Patient placed on empiric IV antibiotics. We will await culture results. (2) Pancreatitis Current Visit: Yes Status: Acute Plan to address problem: Patient has known history of alcohol abuse. She drinks alcohol almost on a daily basis. We will monitor lipase levels. Patient placed on IV fluid and IV analgesic medication. Will make n.p.o. meanwhile. Consult will be placed to gastroenterology for evaluation and recommendations. (3) DVT prophylaxis Current Visit: No Status: Acute Plan to address problem: Patient placed on subcutaneous heparin. (4) Full code status Current Visit: Yes Status: Acute Plan to address problem: Patient is full code.
[2020-09-14] MEDS: MORPHINE 2 MG/1 ML INJ IV PRN ×5 (03:08→21:38)
[2020-09-14] MEDS: SODIUM CHLORIDE 0.9% 1000 ML 1,000 ML IV SCH ×3 (04:56→22:00)
--- NOTE | 2020-09-14 09:25 | Gastroenterology Consultation ---
History of Present Illness - Reason for Consult Consult date: 09/14/20 Pancreatitis Requesting physician: MIGUEL RAGSDALE - History of Present Illness The patient is a 35 yo female with a hx of pancreatitis for at least 5 years (was originally dx at [facility] before 2017). She has been admitted for this numerous times, as well as for EtOH intoxication. She had a CT in 2019 that was concerning for a mass at the [facility], but signed out AMA and has not been seen since (mass versus inflammatory phlegmon). She returns with similar complaints of acute onset N/V/abdominal pain in the last 36 hours. There is no blood in the emesis, and none in the stools. She was consuming EtOH ("lots") as recently as , as well as smoking (tobacco + MJ) and admits to recent cocaine. She has not had N/V since admit, and wants to try PO food. Of note, her LFTs are now higher than in 2019, and she has mild ascites with a grossly fatty liver on her CT scan. Her GB appears normal, with no obvious stones. Past History Past Medical History: other (Asthma,Pancreatitis, Thyroid disease) Past Surgical History: No surgical history Social history: smoking (Current daily smoker), alcohol abuse (Drinks alcohol almost every other dsay.), other (Cocaine) Family history: no significant family history Medications and Allergies Allergies Allergy/AdvReac Type Severity Reaction Status Date / Time No Known Allergies Allergy Unverified 11/10/18 20:12 Home Medications Medication Instructions Recorded Confirmed Last Taken Type Folic Acid [Folvite] 1 mg PO DAILY #30 tablet 02/27/19 Unknown Rx Magnesium Oxide [Magnesium] 400 mg PO DAILY #7 capsule 02/27/19 Unknown Rx Melatonin [Melatonin 5MG TAB] 5 mg PO HS #30 tablet 02/27/19 Unknown Rx Multivitamin Tab [Multiple Vitamin 1 each PO DAILY #30 tablet 02/27/19 Unknown Rx TAB (Theragran)] Nicotine [Habitrol] 14 mg TD DAILY #30 patch 02/27/19 Unknown Rx Thiamine [Vitamin B-1] 100 mg PO QDAY #30 tablet 02/27/19 Unknown Rx oxyCODONE /ACETAMINOPHEN [Percocet 1 tab PO Q6HR PRN #14 tablet 02/27/19 Unknown Rx 5/325] Active Meds: Active Medications Acetaminophen (Acetaminophen 325 Mg Tab) 650 mg PO Q4H PRN PRN Reason: Pain MILD(1-3)/Fever >100.5/DRAKE Sodium Chloride (Nacl 0.9% 1000 Ml) 1,000 mls @ 150 mls/hr IV DIRECT SIMON Last Admin: 09/14/20 08:17 Dose: 150 mls/hr Documented by: Ceftriaxone Sodium (Rocephin/Ns 1 Gm/50 Ml) 1 gm in 50 mls @ 100 mls/hr IV Q24HR SIMON; Protocol Morphine Sulfate (Morphine 2 Mg/1 Ml Inj) 2 mg IV Q4H PRN PRN Reason: Pain, Moderate (4-6) Last Admin: 09/14/20 08:15 Dose: 2 mg Documented by: Multivitamins (Multivitamins ,Therapeutic Tab) 1 each PO QDAY SIMON Ondansetron HCl (Ondansetron 4 Mg/2 Ml Inj) 4 mg IV Q8H PRN PRN Reason: Nausea And Vomiting Pantoprazole Sodium (Pantoprazole 40 Mg Tab) 40 mg PO QDAC SIMON Sodium Chloride (Sodium Chloride 0.9% 10 Ml Flush Syringe) 10 ml IV BID SIMON Sodium Chloride (Sodium Chloride 0.9% 10 Ml Flush Syringe) 10 ml IV PRN PRN PRN Reason: LINE FLUSH I HAVE REVIEWED AND RECONCILED MEDICATIONS Review of Systems - Review of Systems All systems: negative (as noted in the HPI) Exam - Constitutional Vital Signs: Temp Pulse Resp BP Pulse Ox 98.4 F 80 18 116/76 100 09/14/20 07:55 09/14/20 07:55 09/14/20 08:18 09/14/20 07:55 09/14/20 07:55 General appearance: mild distress - EENT Eyes: PERRL, EOM intact, scleral icterus ENT: hearing intact, clear oral mucosa, other (Parotid enlargement) - Neck Neck: supple, normal ROM - Respiratory Respiratory effort: normal Respiratory: bilateral: CTA - Cardiovascular Rhythm: regular Heart Sounds: Present: S1 & S2 Extremities: no ischemia, No edema - Gastrointestinal General gastrointestinal: Present: soft, non-tender, distended (Mild ascites) - Integumentary Integumentary: Present: clear, warm, dry - Neurologic Neurological: alert and oriented x3 - Labs CBC & Chem 7: 09/13/20 20:11 09/13/20 21:35 Lab Results: Laboratory Results - last 24 hr 09/13/20 09/13/20 09/13/20 20:11 20:11 20:11 WBC 10.6 RBC 3.60 L Hgb 12.1 Hct 35.7 MCV 99 H MCH 34 H MCHC 34 RDW 19.5 H Plt Count 109 L Lymph % (Auto) 18.0 [place] % (Auto) 7.6 H Eos % (Auto) 0.4 Baso % (Auto) 0.8 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) 1.9 [place] # (Auto) 0.8 Eos # (Auto) 0.0 Baso # (Auto) 0.1 Seg Neutrophils % 73.2 H Seg Neutrophils # 7.7 Sodium Potassium Chloride Carbon Dioxide Anion Gap BUN Creatinine Estimated GFR BUN/Creatinine Ratio Glucose Calcium Total Bilirubin AST ALT Alkaline Phosphatase Total Protein Albumin Albumin/Globulin Ratio Lipase 35 HCG, Qual Negative Urine Color Urine Turbidity Urine pH Ur Specific [place] Urine Protein Urine Glucose (UA) Urine Ketones Urine Blood Urine Nitrite Urine Bilirubin Urine Ictotest Urine Urobilinogen Ur Leukocyte Esterase Urine WBC (Auto) Urine RBC (Auto) U Epithel Cells (Auto) Urine Bacteria (Auto) Ur Transition Epith Cell Urine Mucus 09/13/20 09/13/20 20:37 21:35 WBC RBC Hgb Hct MCV MCH MCHC RDW Plt Count Lymph % (Auto) [place] % (Auto) Eos % (Auto) Baso % (Auto) 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) [place] # (Auto) Eos # (Auto) Baso # (Auto) Seg Neutrophils % Seg Neutrophils # Sodium 134 L Potassium 4.1 Chloride 92.4 L Carbon Dioxide 23 Anion Gap 23 BUN 5 L Creatinine 0.4 L Estimated GFR > 60 BUN/Creatinine Ratio 13 Glucose 84 Calcium 9.0 Total Bilirubin 2.80 H AST 209 H ALT 34 Alkaline Phosphatase 313 H Total Protein 8.0 Albumin 4.2 Albumin/Globulin Ratio 1.1 Lipase HCG, Qual Urine Color Eliz Urine Turbidity Slightly-cloudy Urine pH 6.0 Ur Specific [place] 1.025 Urine Protein 100 mg/dl Urine Glucose (UA) Neg Urine Ketones 20 Urine Blood Neg Urine Nitrite Neg Urine Bilirubin Mod Urine Ictotest Positive Urine Urobilinogen 4.0 Ur Leukocyte Esterase Lg Urine WBC (Auto) > 182.0 H Urine RBC (Auto) 4.0 U Epithel Cells (Auto) 2.0 Urine Bacteria (Auto) 1+ Ur Transition Epith Cell 4 Urine Mucus 2+ Assessment and Plan - Patient Problems (1) Acute on chronic pancreatitis Current Visit: Yes Status: Acute Plan to address problem: - Changes in the pancreas head likely acute on chronic phlegmon; cancer would not be stable for 2 years like this. - Recommend MVI therapy, advance diet as tolerated, and monitor for EtOH WD. - Recommend minimize narcotics, and use benzos per [facility] protocol. - Monitor serial labs; may d/c home to further w/u pancreas when stable (would perform an MRI when pancreatitis resolves; EUS with FNA as needed). - No further recs; will sign off for now; please call with questions. 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
[2020-09-14] MEDS: MULTIVITAMINS ,THERAPEUTIC TAB PO SCH (09:34)
[2020-09-14] MEDS: cefTRIAXone/NS 1 GM/50 ML 1 GM/50 ML BAG IV SCH (10:27)
[2020-09-14] MEDS: PANTOPRAZOLE 40 MG TAB PO SCH (10:27)
--- NOTE | 2020-09-14 12:14 | Event Note ---
Date: 09/14/20 Patient admitted for acute on chronic pancreatitis Keep her n.p.o. CIWA protocol initiated
[2020-09-15] MEDS: MORPHINE 2 MG/1 ML INJ IV PRN ×3 (02:33→12:39)
[2020-09-15] MEDS: PANTOPRAZOLE 40 MG TAB PO SCH (07:42)
[2020-09-15 08:41] LABS: Basophils % (Auto) 0.6 % (0.0-1.8); Eosinophils # (Auto) 0.2 K/mm3 (0.0-0.4); Eosinophils % (Auto) 2.6 % (0.0-4.3); Hemoglobin 10.1 gm/dl (10.1-14.3); Lymphocytes # (Auto) 1.5 K/mm3 (1.2-5.4); Lymphocytes % (Auto) 22.9 % (13.4-35.0); Mean Corpuscular HGB Conc 34 % (30-34); Mean Corpuscular Volume 100 fl (79-97); Monocytes # (Auto) 0.5 K/mm3 (0.0-0.8); Monocytes % (Auto) 7.8 % (0.0-7.3); Red Blood Count 3.01 M/mm3 (3.65-5.03); Red Cell Distribution Width 19.1 % (13.2-15.2)
[2020-09-15 08:42] LABS: Blood Urea Nitrogen 4 mg/dL (7-17); Calcium 7.7 mg/dL (8.4-10.2); Hemolysis Index 17
[2020-09-15 08:45] LABS: Albumin 3.2 g/dL (3.9-5); Bilirubin,Direct 1.9 mg/dL (0-0.2)
[2020-09-15 08:47] LABS: INR 1.54 (0.87-1.13)
[2020-09-15 08:51] LABS: BUN/Creatinine Ratio 10
[2020-09-15] MEDS: MULTIVITAMINS ,THERAPEUTIC TAB PO SCH (09:02)
[2020-09-15] MEDS: cefTRIAXone/NS 1 GM/50 ML 1 GM/50 ML BAG IV SCH (09:02)
[2020-09-15 09:10] LABS: Platelet Count 86 K/mm3 (140-440)
[2020-09-15 11:55] VITALS: BP 113/72
--- NOTE | 2020-09-15 13:37 | Discharge Summary ---
Providers - Providers Date of Admission: 09/14/20 01:05 Date of discharge: 09/15/20 Attending physician: HOMERO RIVERA 09/14/20 01:16 Consult to Physician [CONS] Routine Comment: Consulting Provider: HUMBLE MAURO Physician Instructions: Reason For Exam: Abdominal Pain,Chronic Pancreatitis,Abnormal LFT [facility] Hospitalization Condition: Fair Hospital course: History of present illness: 35-year-old -[place] female with known history of asthma, pancreatitis and thyroid disease in the past presents to the emergency room today complaining of abdominal pain. Abdominal pain was said to have started about 24 hours ago. Pain is mainly in the epigastric region and also in the flanks bilaterally. She has had associated nausea and vomiting but denies any diarrhea. Denies any fever or chills, no chest pain or shortness of breath, no headache or dizziness. Patient denies any hematuria or dysuria. On a scale of 10 pain was about 9/10 in severity. No known relieving or exacerbating factor. Patient denies any sick contacts and no recent travel. Denies any contact with anyone with COVID-19. Patient admits to drinking alcohol almost on a daily basis and she is also a current daily smoker. She denies any illicit drug use. Review of her records indicates she was in the hospital about 2 years ago and admitted with similar symptoms which she signed out AGAINST MEDICAL ADVICE. Work-up in the emergency room today reveals UTI. Elevated AST of 209. CT of the abdomen and pelvis reveals mild to moderate inflammatory stranding and masslike appearance of the pancreas. Findings are favored to represent pancreatitis. Patient is being admitted for UTI, abdominal pain possibly secondary to pancreatitis. Hospital Course Patient symptomaticaly better Tolerating oral --clears Wants to go home Assessment and Plan - Patient Problems (1) UTI (urinary tract infection) Current Visit: Yes Status: Acute Plan to address problem: will switch to oral abx (2) Pancreatitis Current Visit: Yes Status: Acute Plan to address problem: Clears for 2 days F/u with GI Disposition: TO HOME OR SELFCARE Final Discharge Diagnosis (Prints w/discharge instructions): Acute pancreatitis. UTI. Etoh dependence Time spent for discharge: 32 minutes - Discharge Diagnoses (1) UTI (urinary tract infection) Status: Acute (2) Acute on chronic pancreatitis Status: Acute Core Measure Documentation - Palliative Care Palliative Care/ Comfort Measures: Not Applicable - Core Measures Any of the following diagnoses?: none Exam - Constitutional Vitals: Temp Pulse Resp BP Pulse Ox 98.4 F 81 18 113/72 95 09/15/20 11:18 09/15/20 11:18 09/15/20 12:39 09/15/20 11:18 09/15/20 11:18 General appearance: Present: no acute distress, well-nourished - EENT Eyes: Present: PERRL ENT: hearing intact, clear oral mucosa - Neck Neck: Present: supple, normal ROM - Respiratory Respiratory effort: normal Respiratory: bilateral: CTA - Cardiovascular Heart rate: 78 Rhythm: regular Heart Sounds: Present: S1 & S2. Absent: rub, click - Extremities Extremities: no ischemia, pulses intact, pulses symmetrical, No edema Peripheral Pulses: within normal limits - Abdominal General gastrointestinal: Present: soft, non-tender, non-distended, normal bowel sounds Female genitourinary: Present: normal - Integumentary Integumentary: Present: clear, warm, dry - Musculoskeletal Musculoskeletal: gait normal, strength equal bilaterally - Psychiatric Psychiatric: appropriate mood/affect, intact judgment & insight - Neurologic Neurologic: CNII-XII intact, moves all extremities Plan Activity: no restrictions Diet: clear liquids Follow up with: MITALI JARA MD [Primary Care Provider] - 3-5 Days HUMBLE MAURO MD [Staff Physician] - 7 Days
== END 2020-09-15 14:39 | disposition home or self-care (01) ==
LOC: ED 17:48 → 3A 09-14 01:05 → 3B-SURG 09-14 01:34
PROVIDERS: ADMIT Internal Medicine Geriatric Medicine; ATTEND Internal Medicine
DX: K85.90 Acute pancreatitis without necrosis or infection, unspecified (principal); K86.89 Other specified diseases of pancreas; N39.0 Urinary tract infection, site not specified; E07.9 Disorder of thyroid, unspecified; J45.909 Unspecified asthma, uncomplicated; F17.210 Nicotine dependence, cigarettes, uncomplicated
CPT/HCPCS: 36415; 74177; 80048; 80053; 80076; 81001; 82150; 83690; 84703; 85025; 85610; 96361; 96365; 96366; 96375; 96376; 99285; G0378; J0696; J2270; J2405; J3010; J7030; Q9967

== ENCOUNTER 2021-02-17 16:54 | Emergency (ER) | payer SELFPAY ==
[2021-02-17] MEDS ORDERED: TETANUS,DIPH,PERTUSS(ACELL) VACCINE 0.5 ML SYRINGE IM ONE (19:38)
[2021-02-17] MEDS ORDERED: cephALEXin 500 MG CAP PO ONE (19:39)
[2021-02-17] MEDS ORDERED: IBUPROFEN 600 MG TAB PO ONE (19:39)
--- NOTE | 2021-02-17 21:05 | Emergency Department Report ---
Upper Extremity - HPI Chief Complaint: Wound/Laceration Stated Complaint: QUIÑONEZ Upper Extremity: Right Arm (burn wounds on right forearm) Occurred When: 3 Days Mechanism: Other (scalded burn wounds on right forearm with grease) Severity: severe Symptoms: Yes Pain with Movement, Yes Swelling (Right forearm), Yes Bruising/Ecchymosis (Erythematous rashes on right forearm due to open burn wounds), Yes Laceration or Abrasion (Burn wounds on right forearm with swelling and pain), No Deformity, No Limited Range of Movement (Right forearm), No Numbness, No Weakness Other History: Patient is a 35-year-old -[place] female with a history of chronic alcohol abuse and chronic pancreatitis who presents to the ED with complaint of acute onset persistent right forearm pain and swelling with erythematous rash due to open burn wounds for 3 days. 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 Patient states that there were blisters all over her right forearm which have since opened up 3 days ago and now resulted into mildly erythematous maculopapular rashes with severe pain and mild swelling on the right forearm and right wrist. Patient states that she is not up-to-date with her tetanus vaccinations. Patient denies fever, chills, nausea, vomiting, dizziness, syncope, fall, chest pain or shortness of breath. ED Review of Systems ROS: Stated complaint: QUIÑONEZ Other details as noted in HPI Constitutional: denies: chills, fever Eyes: denies: eye pain, eye discharge, vision change ENT: denies: ear pain, throat pain Respiratory: denies: cough, shortness of breath, wheezing Cardiovascular: denies: chest pain, palpitations Endocrine: no symptoms reported Gastrointestinal: denies: abdominal pain, nausea, diarrhea Genitourinary: denies: urgency, dysuria, discharge Musculoskeletal: arthralgia (Right forearm pain and swelling with erythematous rashes due to open burn wounds), myalgia. denies: back pain, joint swelling Skin: other (Open burn wounds with pain and mild swelling as well as erythematous rashes). denies: rash, lesions Neurological: denies: headache, weakness, paresthesias Psychiatric: denies: anxiety, depression Hematological/Lymphatic: denies: easy bleeding, easy bruising ED Past Medical Hx - Past Medical History Hx Congestive Heart Failure: No Hx Diabetes: No Hx Asthma: Yes Hx COPD: No Additional medical history: Pancreatitis; chronic alcohol abuse. Thyroid disease - Social History Smoking Status: Current Every Day Smoker - Medications Home Medications: Home Medications Medication Instructions Recorded Confirmed Last Taken Type Folic Acid [Folvite] 1 mg PO DAILY 30 Days #30 tablet 09/15/20 Unknown Rx Magnesium Oxide [Magnesium] 400 mg PO DAILY #14 capsule 09/15/20 Unknown Rx Melatonin [Melatonin 5MG TAB] 5 mg PO HS 10 Days #30 tablet 09/15/20 Unknown Rx Multivitamin Tab [Multiple Vitamin 1 each PO DAILY #30 tablet 09/15/20 Unknown Rx TAB (Theragran)] Nicotine [Habitrol] 14 mg TD DAILY #30 patch 09/15/20 Unknown Rx Pantoprazole [Protonix TAB] 40 mg PO QDAC #30 tablet 09/15/20 Unknown Rx Thiamine [Vitamin B-1] 100 mg PO QDAY 30 Days #30 tablet 09/15/20 Unknown Rx cephALEXin [Keflex] 500 mg PO Q6HR #40 capsule 09/15/20 Unknown Rx oxyCODONE /ACETAMINOPHEN [Percocet 1 tab PO Q6HR PRN 5 Days #14 tablet 09/15/20 Unknown Rx 5/325 mg] Ibuprofen [Motrin] 600 mg PO Q8H PRN #30 tablet 02/17/21 Unknown Rx Mupirocin [Bactroban 2% OINT] 1 applic TP TID #1 tube 02/17/21 Unknown Rx cephALEXin [Keflex] 500 mg PO Q6HR #40 capsule 02/17/21 Unknown Rx Upper Extremity Exam - Exam General: Vital signs noted. No distress. Alert and acting appropriately. Head and Torso: No HEENT Abnormality, No Neck Tenderness, No Chest/Lungs Abnormality, No Abdominal Tenderness, No Back Tenderness Shoulder Exam: Yes Normal Range of Motion in Shoulder, No Shoulder Tenderness, No Clavicle Tenderness, No Shoulder Deformity, No AC Joint Tenderness Arm Exam: No Arm/Humerus Tenderness, No Arm Deformity Elbow: Yes Normal Range of Motion in Elbow, No Elbow Tenderness, No Elbow Deformity Forearm: Yes Forearm Tenderness (Palpable diffuse right forearm tenderness due to erythematous maculopapular rashes due to open second-degree burn wounds), No Forearm Deformity, No Pain with Pronation, No Pain with Supination Wrist: Yes Wrist Tenderness (Mildly swollen, severely tender right wrist due to open second-degree burn wounds), Yes Normal ROM in Wrist, No Wrist Deformity, No Snuffbox Tenderness, No Pain with Axial Thumb Compression Hand: Yes Normal ROM in Digit(s), No Hand Tenderness, No Hand Deformity, No Digit Tenderness, No Digit(s) Deformity, No Tendon Dysfunction CMS Exam: Yes Broken Skin (Open second-degree burn wounds with localized tenderness, mild erythema and mild swelling), Yes Normal Distal Pulses, Yes Normal Capillary Refill, Yes Normal Distal Sensation ED Medical Decision Making - Medical Decision Making This is a 35-year-old -[place] female with a history of chronic alcohol abuse and chronic pancreatitis who presents to the ED with complaint of acute onset persistent right forearm pain and swelling with erythematous rash due to open burn wounds for 3 days. 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 Patient states that there were blisters all over her right forearm which have since opened up 3 days ago and now resulted into mildly erythematous maculopapular rashes with severe pain and mild swelling on the right forearm and right wrist. Patient states that she is not up-to-date with her tetanus vaccinations. In the ED, patient is alert and oriented x3 and is not in any distress. Patient was treated the ED for pain and was given initial oral antibiotics. Patient also received booster tetanus vaccination in the ED. Patient was discharged home on pain medications and oral antibiotics and advised to follow-up with her primary care physician in 7 to 10 days for reevaluation. Patient was advised return to the ED immediately if symptoms get worse. - Differential Diagnosis cellulitis; second-degree burn; right arm injury Critical care attestation.: If time is entered above; I have spent that time in minutes in the direct care of this critically ill patient, excluding procedure time. ED Disposition Clinical Impression: Burn of second degree of right forearm, initial encounter, Cellulitis of right forearm Disposition: 01 HOME / SELF CARE / HOMELESS Is pt being admited?: No Does the pt Need Aspirin: No Condition: Stable Instructions: Burn Care, Adult, [id number], Cellulitis, Adult, [id number], Second-Degree Burn, Adult Additional Instructions: Take medication with food, drink plenty of fluids and follow-up with your primary care physician in 7 to 10 days for reevaluation. Return to the ED immediately if symptoms get worse. Prescriptions: Mupirocin [Bactroban 2% OINT] 1 applic TP TID #1 tube cephALEXin [Keflex] 500 mg PO Q6HR #40 capsule Ibuprofen [Motrin] 600 mg PO Q8H PRN #30 tablet PRN Reason: Pain Referrals: PACHECO KONG NP [Primary Care Provider] - 3-5 Days Forms: Work/School Release Form(ED) Time of Disposition: 21:08 Print Language: SAMI
[2021-02-17 21:48] VITALS: BP 111/81
== END 2021-02-17 21:46 | disposition home or self-care (01) ==
LOC: ED 16:54
DX: T22.211A Burn of second degree of right forearm, initial encounter (principal); L03.113 Cellulitis of right upper limb; J45.909 Unspecified asthma, uncomplicated; F17.200 Nicotine dependence, unspecified, uncomplicated; X12.XXXA Contact with other hot fluids, initial encounter; Y93.89 Activity, other specified; Y92.89 Other specified places as the place of occurrence of the external cause; Y99.8 Other external cause status
CPT/HCPCS: 90471; 90715; 99282

== ENCOUNTER 2021-04-09 19:04 | Inpatient (IN) | payer SELFPAY ==
[2021-04-09] MEDS ORDERED: IBUPROFEN 600 MG TAB PO ONE (22:53)
--- NOTE | 2021-04-09 22:55 | Emergency Department Report ---
HPI <ALEX UMANA - Last Filed: 04/10/21 08:01> - HPI HPI: 36-year-old -[place] female presents to the emergency department with a 5-day history of nausea, cough, intermittent shortness of breath, generalized body aches, sore throat, headache, abdominal pain. The abdominal pain has been more chronic and she says that it radiates towards the left flank. She has a history of previous pancreatitis, fibroids. She also says that she feels like there is "fluid inside of me." She has a history of alcohol abuse and admits that she continues to drink alcohol regularly, but denies any history of dependence or DTs. She has not taken anything for symptoms prior to presentation. No recent travel or sick contacts at home. She is not vaccinated for COVID-19 or influenza. <DRISS FRENCH S - Last Filed: 04/10/21 21:12> - General Chief Complaint: Nausea/Vomiting/Diarrhea Time Seen by Provider: 04/09/21 22:49 ED Past Medical Hx <ALEX UMANA - Last Filed: 04/10/21 08:01> - Past Medical History Hx Congestive Heart Failure: No Hx Diabetes: No Hx Asthma: Yes Hx COPD: No Additional medical history: Pancreatitis; chronic alcohol abuse. Thyroid disease - Social History Smoking Status: Current Every Day Smoker <DRISS FRENCH - Last Filed: 04/10/21 21:12> - Medications Home Medications: Home Medications Medication Instructions Recorded Confirmed Last Taken Type Folic Acid [Folvite] 1 mg PO DAILY 30 Days #30 tablet 09/15/20 Unknown Rx Magnesium Oxide [Magnesium] 400 mg PO DAILY #14 capsule 09/15/20 Unknown Rx Melatonin [Melatonin 5MG TAB] 5 mg PO HS 10 Days #30 tablet 09/15/20 Unknown Rx Multivitamin Tab [Multiple Vitamin 1 each PO DAILY #30 tablet 09/15/20 Unknown Rx TAB (Theragran)] Nicotine [Habitrol] 14 mg TD DAILY #30 patch 09/15/20 Unknown Rx Pantoprazole [Protonix TAB] 40 mg PO QDAC #30 tablet 09/15/20 Unknown Rx Thiamine [Vitamin B-1] 100 mg PO QDAY 30 Days #30 tablet 09/15/20 Unknown Rx cephALEXin [Keflex] 500 mg PO Q6HR #40 capsule 09/15/20 Unknown Rx oxyCODONE /ACETAMINOPHEN [Percocet 1 tab PO Q6HR PRN 5 Days #14 tablet 09/15/20 Unknown Rx 5/325 mg] Ibuprofen [Motrin] 600 mg PO Q8H PRN #30 tablet 02/17/21 Unknown Rx Mupirocin [Bactroban 2% OINT] 1 applic TP TID #1 tube 02/17/21 Unknown Rx cephALEXin [Keflex] 500 mg PO Q6HR #40 capsule 02/17/21 Unknown Rx ED Review of Systems ROS: Stated complaint: S/S COVID Other details as noted in HPI <ALEX UMANA - Last Filed: 04/10/21 08:01> ROS: Stated complaint: S/S COVID Other details as noted in HPI Constitutional: chills, fever Eyes: denies: eye pain, vision change ENT: throat pain. denies: ear pain Respiratory: cough, shortness of breath Cardiovascular: denies: palpitations, edema Gastrointestinal: abdominal pain, nausea Genitourinary: denies: dysuria, discharge Musculoskeletal: myalgia. denies: joint swelling Skin: denies: rash, lesions Neurological: headache. denies: weakness, numbness, paresthesias <DRISS FRENCH S - Last Filed: 04/10/21 21:12> Physical Exam - Physical Exam Vital Signs: Vital Signs 04/09/21 04/09/21 04/10/21 19:13 23:01 03:13 Temperature 100.2 F H Pulse Rate 114 H Respiratory 22 20 18 Rate Blood Pressure 136/80 [Left] O2 Sat by Pulse 97 Oximetry <ALEX UMANA - Last Filed: 04/10/21 08:01> - Physical Exam Vital Signs: Vital Signs 04/09/21 19:13 Temperature 100.2 F H Pulse Rate 114 H Respiratory 22 Rate Blood Pressure 136/80 [Left] O2 Sat by Pulse 97 Oximetry Physical Exam: GENERAL: The patient is well-developed well-nourished. HENT: Normocephalic. Atraumatic. Patient has moist mucous membranes. Oropharynx is clear without tonsillar hypertrophy, erythema or exudates. EYES: Extraocular motions are intact. NECK: Supple. Trachea is midline. CHEST/LUNGS: Mild rhonchi heard bilaterally. No tachypnea or accessory muscle use. There is no respiratory distress noted. HEART/CARDIOVASCULAR: Regular. There is no tachycardia. There is no murmur. ABDOMEN: Abdomen is soft. Generalized abdominal tenderness to palpation. No guarding. Patient has normal bowel sounds. There is no abdominal distention. SKIN: Skin is warm and dry. NEURO: The patient is awake, alert, and oriented. The patient is cooperative. The patient has no focal neurologic deficits. Normal speech. MUSCULOSKELETAL: There is no tenderness or deformity. There is no limitation range of motion. <DRISS FRENCH - Last Filed: 04/10/21 21:12> ED Course Vital Signs 04/09/21 04/09/21 04/10/21 19:13 23:01 03:13 Temperature 100.2 F H Pulse Rate 114 H Respiratory 22 20 18 Rate Blood Pressure 136/80 [Left] O2 Sat by Pulse 97 Oximetry <ALEX UMANA - Last Filed: 04/10/21 08:01> Vital Signs 04/09/21 19:13 Temperature 100.2 F H Pulse Rate 114 H Respiratory 22 Rate Blood Pressure 136/80 [Left] O2 Sat by Pulse 97 Oximetry - Consultations Consultation #1: 04/10/21 06:14 I spoke to the basin cleaner on-call, Dr. Culp. They are willing to consult on the patient regarding her alcoholic liver disease and ascites. I spoke to the FREIGHT ENGINEER on-call, Dr Orr, and they are willing to consult on this patient regarding her pelvic mass. <DRISS FRENCH - Last Filed: 04/10/21 21:12> ED Medical Decision Making - Lab Data Result diagrams: 04/09/21 22:57 04/09/21 22:57 <ALEX UMANA - Last Filed: 04/10/21 08:01> - Lab Data Result diagrams: 04/09/21 22:57 04/10/21 06:54 Lab Results 04/09/21 04/09/21 04/09/21 Range/Units 22:57 22:57 22:57 WBC 13.5 H (4.5-11.0) K/mm3 RBC 3.41 L (3.65-5.03) M/mm3 Hgb 11.6 (10.1-14.3) gm/dl Hct 35.7 (30.3-42.9) % MCV 105 H (79-97) fl MCH 34 H (28-32) pg MCHC 33 (30-34) % RDW 16.5 H (13.2-15.2) % Plt Count 116 L (140-440) K/mm3 Lymph % (Auto) 18.9 (13.4-35.0) % Union % (Auto) 8.3 H (0.0-7.3) % Eos % (Auto) 0.2 (0.0-4.3) % Baso % (Auto) 0.3 (0.0-1.8) % 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) 2.6 (1.2-5.4) K/mm3 Union # (Auto) 1.1 H (0.0-0.8) K/mm3 Eos # (Auto) 0.0 (0.0-0.4) K/mm3 Baso # (Auto) 0.0 (0.0-0.1) K/mm3 Seg Neutrophils % 72.3 H (40.0-70.0) % Seg Neutrophils # 9.8 H (1.8-7.7) K/mm3 D-Dimer (0-234) ng/mlDDU Sodium 135 L (137-145) mmol/L Potassium 3.5 L (3.6-5.0) mmol/L Chloride 97.8 L (98-107) mmol/L Carbon Dioxide 18 L (22-30) mmol/L Anion Gap 23 mmol/L BUN 5 L (7-17) mg/dL Creatinine 0.6 (0.6-1.2) mg/dL Estimated GFR > 60 ml/min BUN/Creatinine Ratio 8 % Glucose 97 (65-100) mg/dL Calcium 8.0 L (8.4-10.2) mg/dL Ferritin (10.0-200.0) ng/mL Total Bilirubin 3.90 H (0.1-1.2) mg/dL AST 164 H (5-40) units/L ALT 24 (7-56) units/L Alkaline Phosphatase 538 H (35-129) units/L Lactate Dehydrogenase (91-180) units/L C-Reactive Protein (0.00-1.30) mg/dL Total Protein 8.7 H (6.3-8.2) g/dL Albumin 3.4 L (3.9-5) g/dL Albumin/Globulin Ratio 0.6 % Lipase 51 (13-60) units/L TSH (0.270-4.200) mlU/mL HCG, Qual Negative (Negative) Group A Strep Rapid (Negative) 04/09/21 04/09/21 04/10/21 Range/Units 22:59 Unknown 06:54 WBC (4.5-11.0) K/mm3 RBC (3.65-5.03) M/mm3 Hgb (10.1-14.3) gm/dl Hct (30.3-42.9) % MCV (79-97) fl MCH (28-32) pg MCHC (30-34) % RDW (13.2-15.2) % Plt Count (140-440) K/mm3 Lymph % (Auto) (13.4-35.0) % Union % (Auto) (0.0-7.3) % Eos % (Auto) (0.0-4.3) % Baso % (Auto) (0.0-1.8) % 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) (1.2-5.4) K/mm3 Union # (Auto) (0.0-0.8) K/mm3 Eos # (Auto) (0.0-0.4) K/mm3 Baso # (Auto) (0.0-0.1) K/mm3 Seg Neutrophils % (40.0-70.0) % Seg Neutrophils # (1.8-7.7) K/mm3 D-Dimer (0-234) ng/mlDDU Sodium (137-145) mmol/L Potassium (3.6-5.0) mmol/L Chloride (98-107) mmol/L Carbon Dioxide (22-30) mmol/L Anion Gap mmol/L BUN (7-17) mg/dL Creatinine (0.6-1.2) mg/dL Estimated GFR ml/min BUN/Creatinine Ratio % Glucose (65-100) mg/dL Calcium (8.4-10.2) mg/dL Ferritin (10.0-200.0) ng/mL Total Bilirubin (0.1-1.2) mg/dL AST (5-40) units/L ALT (7-56) units/L Alkaline Phosphatase (35-129) units/L Lactate Dehydrogenase 215 H (91-180) units/L C-Reactive Protein 3.20 H (0.00-1.30) mg/dL Total Protein (6.3-8.2) g/dL Albumin (3.9-5) g/dL Albumin/Globulin Ratio % Lipase (13-60) units/L TSH 3.750 (0.270-4.200) mlU/mL HCG, Qual (Negative) Group A Strep Rapid Negative (Negative) 04/10/21 04/10/21 04/10/21 Range/Units 06:54 07:00 07:01 WBC (4.5-11.0) K/mm3 RBC (3.65-5.03) M/mm3 Hgb (10.1-14.3) gm/dl Hct (30.3-42.9) % MCV (79-97) fl MCH (28-32) pg MCHC (30-34) % RDW (13.2-15.2) % Plt Count (140-440) K/mm3 Lymph % (Auto) (13.4-35.0) % Union % (Auto) (0.0-7.3) % Eos % (Auto) (0.0-4.3) % Baso % (Auto) (0.0-1.8) % 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) (1.2-5.4) K/mm3 Union # (Auto) (0.0-0.8) K/mm3 Eos # (Auto) (0.0-0.4) K/mm3 Baso # (Auto) (0.0-0.1) K/mm3 Seg Neutrophils % (40.0-70.0) % Seg Neutrophils # (1.8-7.7) K/mm3 D-Dimer 1527.88 H (0-234) ng/mlDDU Sodium (137-145) mmol/L Potassium (3.6-5.0) mmol/L Chloride (98-107) mmol/L Carbon Dioxide (22-30) mmol/L Anion Gap mmol/L BUN (7-17) mg/dL Creatinine (0.6-1.2) mg/dL Estimated GFR ml/min BUN/Creatinine Ratio % Glucose 92 (65-100) mg/dL Calcium (8.4-10.2) mg/dL Ferritin 597.4 H (10.0-200.0) ng/mL Total Bilirubin (0.1-1.2) mg/dL AST (5-40) units/L ALT (7-56) units/L Alkaline Phosphatase (35-129) units/L Lactate Dehydrogenase (91-180) units/L C-Reactive Protein (0.00-1.30) mg/dL Total Protein (6.3-8.2) g/dL Albumin (3.9-5) g/dL Albumin/Globulin Ratio % Lipase (13-60) units/L TSH (0.270-4.200) mlU/mL HCG, Qual (Negative) Group A Strep Rapid (Negative) - Radiology Data Radiology results: report reviewed ULTRASOUND PELVIS INDICATION / CLINICAL INFORMATION: Pelvic mass Abnormal CT. TECHNIQUE: Transabdominal. Duplex Color Doppler used: Yes. COMPARISON: CT abdomen/pelvis 04/10/2021 FINDINGS: UTERUS: The uterus is normal in appearance measuring 6.9 x 2.9 x 4.6 cm. Endometrial complex is of normal thickness measuring 10 mm. No focal uterine mass identified. RIGHT ADNEXA: Right ovary is not definitively visualized.. LEFT ADNEXA: The left ovary is not definitively visualized. . glass technologist did identify cystic masses surrounding the uterus which I believe to represent most likely ovarian simple cysts. However no definite ovarian parenchyma could be identified. FREE FLUID: Large amount of free fluid is seen throughout the pelvis. ADDITIONAL FINDINGS: There is a solid appearing smoothly marginated mass seen in the posterior cul-de-sac measuring 4.6 x 3.3 x 4.0 cm. There is central echogenic focus, consistent with calcification noted on CT scan. No internal vascularity. IMPRESSION: 1. Solid smoothly marginated 4.6 cm mass is identified in the posterior cul-de-sac, and correlates with mass seen on CT scan. The overall appearance of this mass is nonspecific. This mass was not present on the September 2020 CT scan. The mass does not appear to be arising from the uterus or either ovary. CT abdomen pelvis w con INDICATION / CLINICAL INFORMATION: Upper abd pain, elevated alk phos/bili, panc mass. TECHNIQUE: Axial CT imaging of abdomen and pelvis was obtained with 100 mL Omnipaque 350 IV contrast. Coronal and sagittal reformatted imaging obtained and reviewed. All CT scans at this location are performed using CT dose reduction for ALARA by means of automated exposure control. COMPARISON: Prior CT abdomen/pelvis 09/13/2020 FINDINGS: CT abdomen with contrast demonstrates hepatomegaly. Hepatomegaly appears slightly more prominent than on recent CT. Hepatic parenchyma is diffusely heterogeneous. The right lobe is markedly enlarged compared to the left but without discrete mass. Spleen, kidneys, and adrenal glands appear grossly normal. Small amount of free fluid is seen in the upper abdomen. Gallbladder is present with mild distention but no obvious pericholecystic inflammatory change. Pancreas appears unchanged from prior exams. A discrete pancreatic mass is not identified. However, given the hepatomegaly and lack of oral contrast, pancreatic head is not well visualized. Overall, the appearance is unchanged. CT pelvis with IV contrast demonstrates small to moderate amount of free fluid throughout the pelvis. In the right posterior hemipelvis, adjacent to the rectum, there is an oval smoothly marginated mass measuring approximately 6.1 cm. Within the mass there is central calcification. This mass was not present on most recent CT of 09/13/2020. The mass appears separate from the uterus and ovaries. The mass is of uncertain etiology. Visualized lung bases demonstrate scattered pulmonary opacities with appearance most suggestive for multifocal viral pneumonia. No pleural effusion. No acute osseous abnormality. IMPRESSION: 1. Visualized lung bases demonstrate scattered pulmonary opacities, most consistent with multifocal viral pneumonia. 2. Prominent hepatomegaly. The right lobe is asymmetrically enlarged compared with the left lobe with maximum diameter of 22 cm. The liver is diffusely heterogeneous suggesting severe hepatocellular disease. There is small to moderate amount of ascites throughout the upper abdomen and pelvis which has definitely increased since the prior study. 3. No definite pancreatic mass. Overall appearance of the pancreas is unchanged from prior exams. However, please note due to mass effect from the enlarged liver as well as lack of oral contrast, pancreatic head is not visualized well. 4. Interval development of 6 cm smoothly marginated mass in the right posterior hemipelvis, adjacent to the rectum, containing central calcification. Etiology of this mass is unclear as it d oes not appear to be arising from any adjacent structures. Pelvic ultrasound could be helpful. ABDOMEN 2 VIEW WITH PA CHEST INDICATION / CLINICAL INFORMATION: Cough, Abd pain. COMPARISON: None available. FINDINGS: PA view of the chest demonstrates focal pulmonary opacity in the right lung base, most likely pneumonia. There are a few subtle scattered pulmonary opacities in the left lung. Overall appearance is concerning for multifocal Covid pneumonia. No pleural effusion. Heart size and pulmonary vascularity are normal. Supine and erect views of the abdomen demonstrate a normal bowel gas pattern. No free air. No calcifications in the region of the urinary tract. Visualized osseous structures are unremarkable. IMPRESSION: 1. Bilateral pulmonary opacities, very suggestive for Covid pneumonia. 2. No acute finding within the abdomen. - Medical Decision Making This patient presents with a 5-day history of some upper respiratory type symptoms. She is also complaining of abdominal pain with some radiation towards the flank. Chest x-ray shows bilateral patchy infiltrates. The patient is not vaccinated for COVID-19 and therefore she is a moderate suspicion for COVID. Patient's labs unremarkable for elevated AST, elevated total bilirubin and alk phos, and a mild leukocytosis of 13,000. CT of the abdomen pelvis shows moderate ascites, hepatomegaly, and concern for an interval development of a pelvic mass. Pelvic ultrasound was recommended. Pelvic ultrasound was done that shows a solid 4.5 cm pelvic mass with a large amount of pelvic fluid. GI was contacted and they are willing to consult on the patient. They may potentially do a paracentesis and send fluid out for cytology. FREIGHT ENGINEER was contacted and they are willing to consult on the patient regarding her pelvic mass. As the patient has a high suspicion for COVID-19, mild to moderate ascites with alcoholic liver failure, and a new pelvic mass, as well as a history of noncompliance with outpatient follow-up, the patient will be admitted to the hospital for further evaluation and treatment and was accepted for admission by the hospitalist service. <DRISS FRENCH - Last Filed: 04/10/21 21:12> Critical care attestation.: If time is entered above; I have spent that time in minutes in the direct care of this critically ill patient, excluding procedure time. <ALEX UMANA - Last Filed: 04/10/21 08:01> Critical Care Time: No Critical care attestation.: If time is entered above; I have spent that time in minutes in the direct care of this critically ill patient, excluding procedure time. <DRISS FRENCH - Last Filed: 04/10/21 21:12> ED Disposition Is pt being admited?: Yes Does the pt Need Aspirin: No <MOUSSA,AHMED - Last Filed: 04/10/21 08:01> Is pt being admited?: Yes Time of Disposition: 06:19 <DRISS FRENCH - Last Filed: 04/10/21 21:12> Clinical Impression: Liver disease due to alcohol, Suspected 2019 novel coronavirus infection, Pelvic mass Ascites Qualifiers: Ascites type: other type Qualified Code(s): R18.8 - Other ascites Abdominal pain Qualifiers: Abdominal location: generalized Qualified Code(s): R10.84 - Generalized abdominal pain Disposition: 09 ADMITTED INPATIENT Condition: Fair
[2021-04-09 23:41] LABS: Alanine Aminotransferase 24 units/L (7-56); Albumin 3.4 g/dL (3.9-5); Blood Urea Nitrogen 5 mg/dL (7-17); Hemolysis Index 0
[2021-04-09 23:42] LABS: BUN/Creatinine Ratio 8
[2021-04-09] MEDS ORDERED: SODIUM CHLORIDE 0.9% 1000 ML 1,000 ML IV ONE (23:53)
[2021-04-10 00:02] LABS: Basophils % (Auto) 0.3 % (0.0-1.8); Eosinophils % (Auto) 0.2 % (0.0-4.3); Hematocrit 35.7 % (30.3-42.9); Hemoglobin 11.6 gm/dl (10.1-14.3); Lymphocytes # (Auto) 2.6 K/mm3 (1.2-5.4); Lymphocytes % (Auto) 18.9 % (13.4-35.0); Mean Corpuscular HGB Conc 33 % (30-34); Mean Corpuscular Volume 105 fl (79-97); Monocytes # (Auto) 1.1 K/mm3 (0.0-0.8); Monocytes % (Auto) 8.3 % (0.0-7.3); Platelet Count 116 K/mm3 (140-440); Red Blood Count 3.41 M/mm3 (3.65-5.03); Red Cell Distribution Width 16.5 % (13.2-15.2)
--- NOTE | 2021-04-10 00:31 | XRay Report ---
ABDOMEN 2 VIEW WITH PA CHEST INDICATION / CLINICAL INFORMATION: Cough, Abd pain. COMPARISON: None available. FINDINGS: PA view of the chest demonstrates focal pulmonary opacity in the right lung base, most likely pneumon ia. There are a few subtle scattered pulmonary opacities in the left lung. Overall appearance is conc erning for multifocal Covid pneumonia. No pleural effusion. Heart size and pulmonary vascularity are normal. Supine and erect views of the abdomen demonstrate a normal bowel gas pattern. No free air. No calcifi cations in the region of the urinary tract. Visualized osseous structures are unremarkable. IMPRESSION: 1. Bilateral pulmonary opacities, very suggestive for Covid pneumonia. 2. No acute finding within the abdomen. Signer Name: Carol Jordan MD Signed: 04/10/2021 12:26 AM Workstation Name: [id number]
--- NOTE | 2021-04-10 02:32 | Cat Scan Report ---
CT abdomen pelvis w con INDICATION / CLINICAL INFORMATION: Upper abd pain, elevated alk phos/bili, panc mass. TECHNIQUE: Axial CT imaging of abdomen and pelvis was obtained with 100 mL Omnipaque 350 IV contrast. Coronal an d sagittal reformatted imaging obtained and reviewed. All CT scans at this location are performed us ing CT dose reduction for ALARA by means of automated exposure control. COMPARISON: Prior CT abdomen/pelvis 09/13/2020 FINDINGS: CT abdomen with contrast demonstrates hepatomegaly. Hepatomegaly appears slightly more prominent than on recent CT. Hepatic parenchyma is diffusely heterogeneous. The right lobe is markedly enlarged com pared to the left but without discrete mass. Spleen, kidneys, and adrenal glands appear grossly denisha l. Small amount of free fluid is seen in the upper abdomen. Gallbladder is present with mild distenti on but no obvious pericholecystic inflammatory change. Pancreas appears unchanged from prior exams. A discrete pancreatic mass is not identified. However, given the hepatomegaly and lack of oral contras t, pancreatic head is not well visualized. Overall, the appearance is unchanged. CT pelvis with IV contrast demonstrates small to moderate amount of free fluid throughout the pelvis. In the right posterior hemipelvis, adjacent to the rectum, there is an oval smoothly marginated mass measuring approximately 6.1 cm. Within the mass there is central calcification. This mass was not pr esent on most recent CT of 09/13/2020. The mass appears separate from the uterus and ovaries. The mass is of uncertain etiology. Visualized lung bases demonstrate scattered pulmonary opacities with appearance most suggestive for m ultifocal viral pneumonia. No pleural effusion. No acute osseous abnormality. IMPRESSION: 1. Visualized lung bases demonstrate scattered pulmonary opacities, most consistent with multifocal v iral pneumonia. 2. Prominent hepatomegaly. The right lobe is asymmetrically enlarged compared with the left lobe with maximum diameter of 22 cm. The liver is diffusely heterogeneous suggesting severe hepatocellular dis ease. There is small to moderate amount of ascites throughout the upper abdomen and pelvis which has definitely increased since the prior study. 3. No definite pancreatic mass. Overall appearance of the pancreas is unchanged from prior exams. How ever, please note due to mass effect from the enlarged liver as well as lack of oral contrast, pancre atic head is not visualized well. 4. Interval development of 6 cm smoothly marginated mass in the right posterior hemipelvis, adjacent to the rectum, containing central calcification. Etiology of this mass is unclear as it does not appe ar to be arising from any adjacent structures. Pelvic ultrasound could be helpful. Signer Name: Carol Jordan MD Signed: 04/10/2021 2:28 AM Workstation Name: [id number]
[2021-04-10] MEDS ORDERED: traMADol 50 MG TAB PO ONE (03:07)
--- NOTE | 2021-04-10 05:41 | Ultrasound Report ---
ULTRASOUND PELVIS INDICATION / CLINICAL INFORMATION: Pelvic mass Abnormal CT. TECHNIQUE: Transabdominal. Duplex Color Doppler used: Yes. COMPARISON: CT abdomen/pelvis 04/10/2021 FINDINGS: UTERUS: The uterus is normal in appearance measuring 6.9 x 2.9 x 4.6 cm. Endometrial complex is of no rmal thickness measuring 10 mm. No focal uterine mass identified. RIGHT ADNEXA: Right ovary is not definitively visualized.. LEFT ADNEXA: The left ovary is not definitively visualized. . cytopathology technologist did identify cystic masses surrounding the uterus which I believe to represen t most likely ovarian simple cysts. However no definite ovarian parenchyma could be identified. FREE FLUID: Large amount of free fluid is seen throughout the pelvis. ADDITIONAL FINDINGS: There is a solid appearing smoothly marginated mass seen in the posterior cul-de -sac measuring 4.6 x 3.3 x 4.0 cm. There is central echogenic focus, consistent with calcification no michael on CT scan. No internal vascularity. IMPRESSION: 1. Solid smoothly marginated 4.6 cm mass is identified in the posterior cul-de-sac, and correlates wi th mass seen on CT scan. The overall appearance of this mass is nonspecific. This mass was not presen t on the September 2020 CT scan. The mass does not appear to be arising from the uterus or either ovary. Signer Name: Carol Jordan MD Signed: 04/10/2021 5:37 AM Workstation Name: [id number]
[2021-04-10 07:59] LABS: C-Reactive Protein 3.2 mg/dL (0.00-1.30)
--- NOTE | 2021-04-10 08:11 | History and Physical Report ---
History of Present Illness Date of examination: 04/10/21 Chief complaint: abdominal pain, nausea and vomiting History of present illness: 36-year-old -[place] female presents to the emergency department with a 5-day history of nausea, cough, intermittent shortness of breath, generalized body aches, sore throat, headache, abdominal pain. The abdominal pain has been more chronic and she says that it radiates towards the left flank. She has a history of previous pancreatitis, fibroids. She also says that she feels like there is "fluid inside of me." She has a history of alcohol abuse and admits that she continues to drink alcohol regularly, but denies any history of dependence or DTs. She has not taken anything for symptoms prior to presentation. No recent travel or sick contacts at home. She is not vaccinated for COVID-19 or influenza. Medications and Allergies Allergies Allergy/AdvReac Type Severity Reaction Status Date / Time No Known Allergies Allergy Unverified 11/10/18 20:12 Home Medications Medication Instructions Recorded Confirmed Last Taken Type Folic Acid [Folvite] 1 mg PO DAILY 30 Days #30 tablet 09/15/20 Unknown Rx Magnesium Oxide [Magnesium] 400 mg PO DAILY #14 capsule 09/15/20 Unknown Rx Melatonin [Melatonin 5MG TAB] 5 mg PO HS 10 Days #30 tablet 09/15/20 Unknown Rx Multivitamin Tab [Multiple Vitamin 1 each PO DAILY #30 tablet 09/15/20 Unknown Rx TAB (Theragran)] Nicotine [Habitrol] 14 mg TD DAILY #30 patch 09/15/20 Unknown Rx Pantoprazole [Protonix TAB] 40 mg PO QDAC #30 tablet 09/15/20 Unknown Rx Thiamine [Vitamin B-1] 100 mg PO QDAY 30 Days #30 tablet 09/15/20 Unknown Rx cephALEXin [Keflex] 500 mg PO Q6HR #40 capsule 09/15/20 Unknown Rx oxyCODONE /ACETAMINOPHEN [Percocet 1 tab PO Q6HR PRN 5 Days #14 tablet 09/15/20 Unknown Rx 5/325 mg] Ibuprofen [Motrin] 600 mg PO Q8H PRN #30 tablet 02/17/21 Unknown Rx Mupirocin [Bactroban 2% OINT] 1 applic TP TID #1 tube 02/17/21 Unknown Rx cephALEXin [Keflex] 500 mg PO Q6HR #40 capsule 02/17/21 Unknown Rx Exam - Constitutional Vitals: Temp Pulse Resp BP Pulse Ox 100.2 F H 114 H 18 136/80 97 04/09/21 19:13 04/09/21 19:13 04/10/21 03:13 04/09/21 19:13 04/09/21 19:13 Results - Labs CBC & Chem 7: 04/09/21 22:57 04/09/21 22:57 Labs: Abnormal lab results 04/09/21 04/09/21 04/10/21 Range/Units 22:57 22:57 06:54 WBC 13.5 H (4.5-11.0) K/mm3 RBC 3.41 L (3.65-5.03) M/mm3 MCV 105 H (79-97) fl MCH 34 H (28-32) pg RDW 16.5 H (13.2-15.2) % Plt Count 116 L (140-440) K/mm3 Otero % (Auto) 8.3 H (0.0-7.3) % Otero # (Auto) 1.1 H (0.0-0.8) K/mm3 Seg Neutrophils % 72.3 H (40.0-70.0) % Seg Neutrophils # 9.8 H (1.8-7.7) K/mm3 D-Dimer (0-234) ng/mlDDU Sodium 135 L (137-145) mmol/L Potassium 3.5 L (3.6-5.0) mmol/L Chloride 97.8 L (98-107) mmol/L Carbon Dioxide 18 L (22-30) mmol/L BUN 5 L (7-17) mg/dL Calcium 8.0 L (8.4-10.2) mg/dL Ferritin (10.0-200.0) ng/mL Total Bilirubin 3.90 H (0.1-1.2) mg/dL AST 164 H (5-40) units/L Alkaline Phosphatase 538 H (35-129) units/L Lactate Dehydrogenase 215 H (91-180) units/L C-Reactive Protein 3.20 H (0.00-1.30) mg/dL Total Protein 8.7 H (6.3-8.2) g/dL Albumin 3.4 L (3.9-5) g/dL 04/10/21 04/10/21 Range/Units 07:00 07:01 WBC (4.5-11.0) K/mm3 RBC (3.65-5.03) M/mm3 MCV (79-97) fl MCH (28-32) pg RDW (13.2-15.2) % Plt Count (140-440) K/mm3 Otero % (Auto) (0.0-7.3) % Otero # (Auto) (0.0-0.8) K/mm3 Seg Neutrophils % (40.0-70.0) % Seg Neutrophils # (1.8-7.7) K/mm3 D-Dimer 1527.88 H (0-234) ng/mlDDU Sodium (137-145) mmol/L Potassium (3.6-5.0) mmol/L Chloride (98-107) mmol/L Carbon Dioxide (22-30) mmol/L BUN (7-17) mg/dL Calcium (8.4-10.2) mg/dL Ferritin 597.4 H (10.0-200.0) ng/mL Total Bilirubin (0.1-1.2) mg/dL AST (5-40) units/L Alkaline Phosphatase (35-129) units/L Lactate Dehydrogenase (91-180) units/L C-Reactive Protein (0.00-1.30) mg/dL Total Protein (6.3-8.2) g/dL Albumin (3.9-5) g/dL Assessment and Plan Bilateral pneumonia COVID PUI Hepatomegaly Right pelvic mass Alcohol abuse Chronic pancreatitis Abdominal pain, chronic
[2021-04-10] MEDS ORDERED: ALBUTEROL 8.5 GM MDI INHALATION IH PRN (11:11)
[2021-04-10] MEDS: cefTRIAXone/NS 1 GM/50 ML 1 GM/50 ML BAG IV SCH (11:56)
[2021-04-10] MEDS: FOLIC ACID 1 MG TAB PO SCH (11:56)
[2021-04-10] MEDS: PANTOPRAZOLE 40 MG TAB PO SCH (11:56)
[2021-04-10] MEDS: THIAMINE 100 MG TAB PO SCH (11:56)
[2021-04-10] MEDS: NICOTINE 14 MG/24 HR PATCH TD SCH (12:07)
[2021-04-10] MEDS: DEXAMETHASONE 2 MG TAB PO SCH (12:26)
[2021-04-10] MEDS: AZITHROMYCIN/NS 500 MG/250 ML 500 MG/250 ML BAG IV SCH (12:34)
--- NOTE | 2021-04-10 15:56 | Consultation ---
History of Present Illness - Reason for Consult Consult date: 04/10/21 Abnormal liver Requesting physician: DIANA COLÓN - History of Present Illness Ms. Rose is a 36-year-old woman with a known history of alcohol abuse and chronic pancreatitis who presented to the emergency room complaining of a 5-day history of intermittent nausea and vomiting as well as a 1 month history of intermittent sharp upper abdominal pains, especially with bending over or in certain positions. She had a CT scan which shows an enlarged right liver with some abnormality as well as increased amount of ascites compared to September. She also has a pelvic mass which pelvic ultrasound shows to be a 4.6 cm smooth mass in the posterior cul-de-sac. Her liver enzymes are elevated, but they have been in the past as well. Patient also complains of cough for the last 5 days with bilateral sternal chest pain. She states overall she does not feel well. She has a hx of pancreatitis for at least 5 years (was originally dx at [facility] before 2016). She has been admitted for this numerous times, as well as for EtOH intoxication. There is no blood in the emesis, and none in the stools. S he was consuming EtOH, 3 small bottles of vodka per week. She has a history of smoking (tobacco + MJ) and cocaine. 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[employer]) Family history: no significant family history Medications and Allergies Allergies Allergy/AdvReac Type Severity Reaction Status Date / Time No Known Allergies Allergy Unverified 11/10/18 20:12 Home Medications Medication Instructions Recorded Confirmed Last Taken Type Folic Acid [Folvite] 1 mg PO DAILY 30 Days #30 tablet 09/15/20 Unknown Rx Magnesium Oxide [Magnesium] 400 mg PO DAILY #14 capsule 09/15/20 Unknown Rx Melatonin [Melatonin 5MG TAB] 5 mg PO HS 10 Days #30 tablet 09/15/20 Unknown Rx Multivitamin Tab [Multiple Vitamin 1 each PO DAILY #30 tablet 09/15/20 Unknown Rx TAB (Theragran)] Nicotine [Habitrol] 14 mg TD DAILY #30 patch 09/15/20 Unknown Rx Pantoprazole [Protonix TAB] 40 mg PO QDAC #30 tablet 09/15/20 Unknown Rx Thiamine [Vitamin B-1] 100 mg PO QDAY 30 Days #30 tablet 09/15/20 Unknown Rx cephALEXin [Keflex] 500 mg PO Q6HR #40 capsule 09/15/20 Unknown Rx oxyCODONE /ACETAMINOPHEN [Percocet 1 tab PO Q6HR PRN 5 Days #14 tablet 09/15/20 Unknown Rx 5/325 mg] Ibuprofen [Motrin] 600 mg PO Q8H PRN #30 tablet 02/17/21 Unknown Rx Mupirocin [Bactroban 2% OINT] 1 applic TP TID #1 tube 02/17/21 Unknown Rx cephALEXin [Keflex] 500 mg PO Q6HR #40 capsule 02/17/21 Unknown Rx Active Meds: Active Medications Albuterol (Albuterol 8.5 Gm Mdi Inhalation) 2 puff IH Q4HRT PRN PRN Reason: Shortness Of Breath Dexamethasone (Dexamethasone 2 Mg Tab) 6 mg PO Q24HR [facility] Last Admin: 04/10/21 12:26 Dose: 6 mg Enoxaparin Sodium (Enoxaparin 40 Mg/0.4 Ml Inj) 40 mg SUB-Q QDAY@2200 [facility]; Protocol Folic Acid (Folic Acid 1 Mg Tab) 1 mg PO DAILY [facility] Last Admin: 04/10/21 11:56 Dose: 1 mg Azithromycin (Zithromax/Ns) 500 mg in 250 mls @ 250 mls/hr IV Q24H [facility] Last Admin: 04/10/21 12:34 Dose: 250 mls/hr Ceftriaxone Sodium (Rocephin/Ns 1 Gm/50 Ml) 1 gm in 50 mls @ 100 mls/hr IV Q24H [facility]; Protocol Last Admin: 04/10/21 11:56 Dose: 100 mls/hr Melatonin (Melatonin 5 Mg Tab) 5 mg PO HS [facility] Nicotine (Nicotine 14 Mg/24 Hr Patch) 14 mg TD DAILY [facility] Last Admin: 04/10/21 12:07 Dose: Not Given Oxycodone/Acetaminophen (Oxycodone /Acetaminophen 5-325mg Tab) 1 tab PO Q6HR PRN PRN Reason: PAIN Pantoprazole Sodium (Pantoprazole 40 Mg Tab) 40 mg PO QDAC [facility] Last Admin: 04/10/21 11:56 Dose: 40 mg Thiamine HCl (Thiamine 100 Mg Tab) 100 mg PO QDAY [facility] Last Admin: 04/10/21 11:56 Dose: 100 mg Review of Systems All systems: negative (As per HPI) Exam - Constitutional Vitals: Temp Pulse Resp BP Pulse Ox 100.2 F H 86 21 101/67 96 04/09/21 19:13 04/10/21 10:38 04/10/21 10:38 04/10/21 10:38 04/10/21 10:38 General appearance: Present: no acute distress - EENT Eyes: Present: PERRL, EOM intact ENT: hearing intact - Neck Neck: Present: supple - Respiratory Respiratory effort: normal Respiratory: bilateral: CTA - Cardiovascular Rhythm: regular Heart Sounds: Present: S1 & S2 - Extremities Extremities: No edema - Abdominal General gastrointestinal: Present: soft, tender (Mild epigastric), normal bowel sounds Results - Labs CBC & Chem 7: 04/09/21 22:57 04/10/21 06:54 Labs: Abnormal lab results 04/09/21 04/09/21 04/10/21 Range/Units 22:57 22:57 06:54 WBC 13.5 H (4.5-11.0) K/mm3 RBC 3.41 L (3.65-5.03) M/mm3 MCV 105 H (79-97) fl MCH 34 H (28-32) pg RDW 16.5 H (13.2-15.2) % Plt Count 116 L (140-440) K/mm3 [place]y % (Auto) 8.3 H (0.0-7.3) % [place]ancey # (Auto) 1.1 H (0.0-0.8) K/mm3 Seg Neutrophils % 72.3 H (40.0-70.0) % Seg Neutrophils # 9.8 H (1.8-7.7) K/mm3 D-Dimer (0-234) ng/mlDDU Sodium 135 L (137-145) mmol/L Potassium 3.5 L (3.6-5.0) mmol/L Chloride 97.8 L (98-107) mmol/L Carbon Dioxide 18 L (22-30) mmol/L BUN 5 L (7-17) mg/dL Calcium 8.0 L (8.4-10.2) mg/dL Ferritin (10.0-200.0) ng/mL Total Bilirubin 3.90 H (0.1-1.2) mg/dL AST 164 H (5-40) units/L Alkaline Phosphatase 538 H (35-129) units/L Lactate Dehydrogenase 215 H (91-180) units/L C-Reactive Protein 3.20 H (0.00-1.30) mg/dL Total Protein 8.7 H (6.3-8.2) g/dL Albumin 3.4 L (3.9-5) g/dL 04/10/21 04/10/21 Range/Units 07:00 07:01 WBC (4.5-11.0) K/mm3 RBC (3.65-5.03) M/mm3 MCV (79-97) fl MCH (28-32) pg RDW (13.2-15.2) % Plt Count (140-440) K/mm3 Y[place]y % (Auto) (0.0-7.3) % [place]y # (Auto) (0.0-0.8) K/mm3 Seg Neutrophils % (40.0-70.0) % Seg Neutrophils # (1.8-7.7) K/mm3 D-Dimer 1527.88 H (0-234) ng/mlDDU Sodium (137-145) mmol/L Potassium (3.6-5.0) mmol/L Chloride (98-107) mmol/L Carbon Dioxide (22-30) mmol/L BUN (7-17) mg/dL Calcium (8.4-10.2) mg/dL Ferritin 597.4 H (10.0-200.0) ng/mL Total Bilirubin (0.1-1.2) mg/dL AST (5-40) units/L Alkaline Phosphatase (35-129) units/L Lactate Dehydrogenase (91-180) units/L C-Reactive Protein (0.00-1.30) mg/dL Total Protein (6.3-8.2) g/dL Albumin (3.9-5) g/dL - Imaging and Cardiology Chest x-ray: report reviewed (Bilateral pulmonary opacities concerning for COVID) CT scan - abdomen: report reviewed (Enlarged liver, increased amount of ascites compared to before. Pelvic mass) Assessment and Plan 1. Abnormal liver on CT -this is only mildly changed compared to prior CT scans. 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 Malignancy is less likely. -We will get MRI to further assess liver -Check alpha-fetoprotein level. 2. Alcoholic liver diseasewith transaminase pattern consistent with same. Discussed abstinence. 3. upper abdominal pain sharp painslikely musculoskeletal as patient does have costal tenderness on exam. no findings on CT to raise concern of pancreatic disease or other process. 4. Probable COVIDper hospitalist.
[2021-04-10] MEDS: oxyCODONE /ACETAMINOPHEN 5-325MG TAB PO PRN (19:50)
[2021-04-10] MEDS: ENOXAPARIN 40 MG/0.4 ML INJ SUB-Q SCH (23:41)
[2021-04-10] MEDS: MELATONIN 5 MG TAB PO SCH (23:41)
[2021-04-11] MEDS: PANTOPRAZOLE 40 MG TAB PO SCH (06:42)
--- NOTE | 2021-04-11 09:02 | Cat Scan Report ---
CTA CHEST WITH CONTRAST INDICATION : Elevated dimer OMNI 350 100ML . TECHNIQUE: Axial imaging performed through the chest, with contrast bolus timing set to maximize opa cification of the pulmonary arteries. Sagittal and coronal reformatted images. 3-plane MIP reformatte d images were obtained. All CT scans at this location are performed using CT dose reduction for ALAR A by means of automated exposure control. Omnipaque 350 100 mL of intravenous contrast administered. COMPARISON: None FINDINGS: Bolus: Contrast bolus timing is adequate. PTE: No filling defect is present to suggest PTE. Mediastinum: Heart size is within normal limits. No pericardial abnormality. The aorta and great ves sels are widely patent. 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 No pathologic mediastinal adenopathy. Lungs: Scattered bilateral groundglass lung opacities are identified. No evidence for mass, consolid ation, pleural effusion or pneumothorax. Bones: No significant abnormality. Upper abdomen: Limited images of the upper abdomen demonstrate small perihepatic and perisplenic asc ites. There is mild gallbladder wall thickening but no obvious stones. IMPRESSION: No evidence for pulmonary embolus. Scattered bilateral lung opacities concerning for atypical pneumonia such as Covid. Small ascites in the upper abdomen. Signer Name: Luis Bledsoe Jr, MD Signed: 04/11/2021 8:58 AM Workstation Name: [id number]
--- NOTE | 2021-04-11 09:05 | Consultation ---
History of Present Illness Consult date: 04/11/21 History of present illness: Bilateral ovarian complex mass on CT with ascites suspicious for malignancy. Will order [facility] Malignancy Tumor markers and follow. NO acute abdomen-if tumor markers positive patient needs [facility] ONCOLOGY service and follow up. Benny Lewis MD Medications and Allergies Allergies Allergy/AdvReac Type Severity Reaction Status Date / Time No Known Allergies Allergy Unverified 11/10/18 20:12 Home Medications Medication Instructions Recorded Confirmed Last Taken Type No Known Home Medications [No 04/11/21 04/11/21 Unknown History Reported Home Medications] Active Meds: Active Medications Albuterol (Albuterol 8.5 Gm Mdi Inhalation) 2 puff IH Q4HRT PRN PRN Reason: Shortness Of Breath Dexamethasone (Dexamethasone 2 Mg Tab) 6 mg PO Q24HR [facility] Last Admin: 04/10/21 12:26 Dose: 6 mg Enoxaparin Sodium (Enoxaparin 40 Mg/0.4 Ml Inj) 40 mg SUB-Q QDAY@2200 [facility]; Protocol Last Admin: 04/10/21 23:41 Dose: 40 mg Folic Acid (Folic Acid 1 Mg Tab) 1 mg PO DAILY [facility] Last Admin: 04/10/21 11:56 Dose: 1 mg Azithromycin (Zithromax/Ns) 500 mg in 250 mls @ 250 mls/hr IV Q24H [facility] Last Admin: 04/10/21 12:34 Dose: 250 mls/hr Ceftriaxone Sodium (Rocephin/Ns 1 Gm/50 Ml) 1 gm in 50 mls @ 100 mls/hr IV Q24H [facility]; Protocol Last Admin: 04/10/21 11:56 Dose: 100 mls/hr Melatonin (Melatonin 5 Mg Tab) 5 mg PO HS [facility] Last Admin: 04/10/21 23:41 Dose: 5 mg Nicotine (Nicotine 14 Mg/24 Hr Patch) 14 mg TD DAILY [facility] Last Admin: 04/10/21 12:07 Dose: Not Given Oxycodone/Acetaminophen (Oxycodone /Acetaminophen 5-325mg Tab) 1 tab PO Q6HR PRN PRN Reason: PAIN Last Admin: 04/10/21 19:50 Dose: 1 tab Pantoprazole Sodium (Pantoprazole 40 Mg Tab) 40 mg PO QDAC [facility] Last Admin: 04/11/21 06:42 Dose: Not Given Thiamine HCl (Thiamine 100 Mg Tab) 100 mg PO QDAY [facility] Last Admin: 04/10/21 11:56 Dose: 100 mg - Vital Signs Vital signs: Vital Signs Temp Pulse Resp BP Pulse Ox 100.2 F H 114 H 22 136/80 97 04/09/21 19:13 04/09/21 19:13 04/09/21 19:13 04/09/21 19:13 04/09/21 19:13 Temp Pulse Resp BP Pulse Ox 98.3 F 82 16 112/79 96 04/10/21 21:32 04/10/21 21:32 04/10/21 21:32 04/10/21 21:32 04/10/21 23:19 Results Result Diagrams: 04/09/21 22:57 04/10/21 06:54 Abnormal lab results 04/10/21 Range/Units 09:30 Coronavirus (PCR) Positive A (Negative) All other labs normal.
[2021-04-11] MEDS: NICOTINE 14 MG/24 HR PATCH TD SCH (09:39)
[2021-04-11] MEDS: DEXAMETHASONE 2 MG TAB PO SCH (09:40)
[2021-04-11] MEDS: THIAMINE 100 MG TAB PO SCH (09:40)
[2021-04-11] MEDS: FOLIC ACID 1 MG TAB PO SCH (09:40)
[2021-04-11] MEDS: oxyCODONE /ACETAMINOPHEN 5-325MG TAB PO PRN (09:40)
--- NOTE | 2021-04-11 10:11 | Magnetic Resonance Report ---
MRI ABDOMEN WITHOUT CONTRAST INDICATION / CLINICAL INFORMATION: Abnormal liver, ABD PAIN. TECHNIQUE: Multiplanar, multisequence series were obtained through the abdomen. COMPARISON: 02/27/2019 MRCP. FINDINGS: LIVER: Mild hepatomegaly is again noted. The liver is unremarkable signal on MR. No suggestion of hep atic mass on noncontrast exam. No surface nodularity. The hepatic vasculature appears patent. GALLBLADDER: There is mild nonspecific gallbladder wall thickening. No evidence for stones, sludge or abnormal dilatation. BILE DUCTS: No significant abnormality. PANCREAS: No significant abnormality. SPLEEN: No significant abnormality. ADRENALS: No significant abnormality. RIGHT KIDNEY AND URETER: No significant abnormality. LEFT KIDNEY AND URETER: No significant abnormality. STOMACH AND VISUALIZED BOWEL: No significant abnormality. PERITONEUM: Small ascites is noted throughout the upper abdomen. No free air. No fluid collection. LYMPH NODES: No significant adenopathy. AORTA and ARTERIES: No significant abnormality. IVC and VEINS: No significant abnormality. ADDITIONAL FINDINGS: None. SKELETAL SYSTEM: No significant abnormality. IMPRESSION: Mild hepatomegaly. No liver mass or specific liver parenchymal disease is appreciated on noncontrast MR. Small ascites. Signer Name: Luis Bledsoe Jr, MD Signed: 04/11/2021 10:06 AM Workstation Name: [id number]
[2021-04-11] MEDS: cefTRIAXone/NS 1 GM/50 ML 1 GM/50 ML BAG IV SCH (11:31)
[2021-04-11] MEDS: AZITHROMYCIN/NS 500 MG/250 ML 500 MG/250 ML BAG IV SCH (11:32)
--- NOTE | 2021-04-11 13:31 | Consultation ---
History of Present Illness - Reason for Consult Consult date: 04/11/21 - History of Present Illness 36-year-old female no past medical history admitted to the hospital for 5 days of nausea, cough, shortness of breath, typical COVID-19 symptoms. She does note a chronic abdominal pain that radiates to the left flank. She feels mildly distended. She is unvaccinated against COVID. Afebrile with T-max 100.2 with a white count of 13.5. COVID-19 positive. Normal renal function. Currently on ceftriaxone, azithromycin, dexamethasone. Imaging personally reviewed: Chest CTA: No evidence of pulmonary embolus. Scattered bilateral lung opacities. Abdominal MRI: No ascites. CT abdomen pelvis: Hepatomegaly cellular disease. 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[employer]) Family history: no significant family history Medications and Allergies Allergies Allergy/AdvReac Type Severity Reaction Status Date / Time No Known Allergies Allergy Unverified 11/10/18 20:12 Home Medications Medication Instructions Recorded Confirmed Last Taken Type No Known Home Medications [No 04/11/21 04/11/21 Unknown History Reported Home Medications] Active Meds: Active Medications Albuterol (Albuterol 8.5 Gm Mdi Inhalation) 2 puff IH Q4HRT PRN PRN Reason: Shortness Of Breath Azithromycin (Azithromycin 250 Mg Tab) 500 mg PO QDAY [facility]; Protocol Stop: 04/14/21 10:01 Dexamethasone (Dexamethasone 2 Mg Tab) 6 mg PO Q24HR [facility] Last Admin: 04/11/21 09:40 Dose: 6 mg Enoxaparin Sodium (Enoxaparin 40 Mg/0.4 Ml Inj) 40 mg SUB-Q QDAY@2200 [facility]; Protocol Last Admin: 04/10/21 23:41 Dose: 40 mg Folic Acid (Folic Acid 1 Mg Tab) 1 mg PO DAILY [facility] Last Admin: 04/11/21 09:40 Dose: 1 mg Ceftriaxone Sodium (Rocephin/Ns 1 Gm/50 Ml) 1 gm in 50 mls @ 100 mls/hr IV Q24H [facility]; Protocol Last Admin: 04/11/21 11:31 Dose: 100 mls/hr Melatonin (Melatonin 5 Mg Tab) 5 mg PO HS [facility] Last Admin: 04/10/21 23:41 Dose: 5 mg Nicotine (Nicotine 14 Mg/24 Hr Patch) 14 mg TD DAILY [facility] Last Admin: 04/11/21 09:39 Dose: 14 mg Oxycodone/Acetaminophen (Oxycodone /Acetaminophen 5-325mg Tab) 1 tab PO Q6HR PRN PRN Reason: PAIN Last Admin: 04/11/21 09:40 Dose: 1 tab Pantoprazole Sodium (Pantoprazole 40 Mg Tab) 40 mg PO QDAC [facility] Last Admin: 04/11/21 06:42 Dose: Not Given Thiamine HCl (Thiamine 100 Mg Tab) 100 mg PO QDAY [facility] Last Admin: 04/11/21 09:40 Dose: 100 mg Physical Examination - Physical Exam Narrative exam: Physical exam deferred to reduce risk of transmission of COVID-19. Please refer to primary team's note. - Constitutional Vitals: Vital Signs Temp Pulse Resp BP Pulse Ox 98.3 F 82 16 112/79 96 04/10/21 21:32 04/10/21 21:32 04/10/21 21:32 04/10/21 21:32 04/10/21 23:19 Temperature -Last 24 Hours Temperature 98.3 F Temperature 98.2 F Results - Labs CBC & Chem 7: 04/09/21 22:57 04/10/21 06:54 Labs: Abnormal lab results 04/10/21 04/11/21 Range/Units 09:30 11:51 Lactate Dehydrogenase 193 H (91-180) units/L Coronavirus (PCR) Positive A (Negative) Assessment and Plan Cultures: Blood culture no growth so far COVID PCR positive A/P: 36-year-old female past medical history pancreatitis admitted with: #Severe COVID-19 pneumonia: Patient presented with a week of symptoms, chest x- ray with diffuse bilateral infiltrates, admission O2 sats decreased on room air. Inflammatory markers elevated #Pelvic mass: Gynecology on board, possible malignancy. #Alcoholic liver disease: We will check hepatitis antibodies to ensure no contributing factors Recommendations: -Dexamethasone 6 mg IV/PO daily for 10 days -If requiring supplemental oxygen, okay to give Remdesivir x5 days. -Obtain q48-72h inflammatory markers - ferritin, Ddimer, CRP, LDH -Stop antibiotics -Anticoagulation per hospital protocol -Proning as able Thank you for the consult, we will continue to follow. Dr. Pineda taking over Wednesday. Miguelito Romero MD [facility] O: [phone] F: [phone]
--- NOTE | 2021-04-11 16:05 | Progress Note ---
Assessment and Plan Bilateral pneumonia COVID PUI Hepatomegaly Right pelvic mass Alcohol abuse Chronic pancreatitis Abdominal pain, chronic 04/11/20; patient tested positive for COVID-19. Patient resting on room air. Inflammatory markers noted. ID consulted. Will initiate on dexamethasone as patient chest x-ray is ulcerative for bilateral pneumonia. Will initiate remdesivir if becomes hypoxic. Will initiate on diet today. If patient tolerates diet and clinically stable along with inflammatory markers patient could be discharged home tomorrow. Noted INFORMATION TECHNOLOGY SECURITY ANALYST recommendation -ordered for tumor markers Subjective Date of service: 04/11/21 Objective - Labs CBC & Chem 7: 04/09/21 22:57 04/10/21 06:54 Labs: Abnormal lab results 04/10/21 04/11/21 Range/Units 09:30 11:51 Lactate Dehydrogenase 193 H (91-180) units/L Coronavirus (PCR) Positive A (Negative)
--- NOTE | 2021-04-11 17:59 | Progress Note ---
Assessment and Plan 1. Abnormal liver on CT -this is only mildly changed compared to prior CT scans. 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 Malignancy is less likely. -MRI shows hepatomegaly, with no mass lesions in the liver. -Follow up on alpha-fetoprotein level. 2. Alcoholic liver diseasewith transaminase pattern consistent with same. Discussed abstinence. 3. Upper abdominal pain sharp painslikely musculoskeletal as patient does have costal tenderness on exam. no findings on CT to raise concern of pancreatic disease or other process. 4. COVIDper hospitalist and ID. 5. Pelvic mass - SPECIAL EDUCATION PARA PROFESSIONAL consult, and concern for ovarian neoplasm noted. Plans as per them. Will sign off. No further GI recommendations. Subjective Date of service: 04/11/21 Interval history: Covid diagnosis noted. MRI done. Objective - Exam Narrative Exam: Not examined, given dx of COVID, as no need for evaluation abnormal liver on CT. - Constitutional Vitals: Vital Signs - 12hr 04/11/21 04/11/21 04/11/21 10:34 11:00 15:39 Temperature 98.2 F 99.0 F Pulse Rate 73 76 Respiratory 18 18 Rate Blood Pressure 108/70 131/89 Blood Pressure [Left] O2 Sat by Pulse 94 96 97 Oximetry 04/11/21 16:13 Temperature 98.1 F Pulse Rate 76 Respiratory 20 Rate Blood Pressure Blood Pressure 131/89 [Left] O2 Sat by Pulse 97 Oximetry - Labs CBC & Chem 7: 04/09/21 22:57 04/10/21 06:54 Labs: Abnormal lab results 04/11/21 Range/Units 11:51 Lactate Dehydrogenase 193 H (91-180) units/L Medications & Allergies - Medications Allergies/Adverse Reactions: Allergies No Known Allergies Allergy (Unverified 11/10/18 20:12) Home Medications: Home Medications Medication Instructions Recorded Confirmed Last Taken Type No Known Home Medications [No 04/11/21 04/11/21 Unknown History Reported Home Medications] Active Medications: Generic Name Dose Route Start Last Admin Trade Name Freq PRN Reason Stop Dose Admin Albuterol 2 puff 04/10/21 11:11 Albuterol 8.5 Gm Mdi Inhalation IH Q4HRT PRN Shortness Of Breath Dexamethasone 6 mg 04/10/21 11:00 04/11/21 09:40 Dexamethasone 2 Mg Tab PO 04/19/21 10:01 6 mg Q24HR SIMON Administration Enoxaparin Sodium 40 mg 04/10/21 22:00 04/10/21 23:41 Enoxaparin 40 Mg/0.4 Ml Inj SUB-Q 40 mg QDAY@2200 SIMON Administration Protocol Folic Acid 1 mg 04/10/21 12:00 04/11/21 09:40 Folic Acid 1 Mg Tab PO 1 mg DAILY SIMON Administration Melatonin 5 mg 04/10/21 22:00 04/10/21 23:41 Melatonin 5 Mg Tab PO 5 mg HS SIMON Administration Nicotine 14 mg 04/10/21 12:00 04/11/21 09:39 Nicotine 14 Mg/24 Hr Patch TD 14 mg DAILY SIMON Administration Oxycodone/Acetaminophen 1 tab 04/10/21 11:10 04/11/21 09:40 Oxycodone /Acetaminophen 5-325mg Tab PO 1 tab Q6HR PRN Administration PAIN Pantoprazole Sodium 40 mg 04/10/21 12:00 04/11/21 06:42 Pantoprazole 40 Mg Tab PO Not Given QDAC SIMON Thiamine HCl 100 mg 04/10/21 12:00 04/11/21 09:40 Thiamine 100 Mg Tab PO 100 mg QDAY SIMON Administration
[2021-04-11] MEDS: ENOXAPARIN 40 MG/0.4 ML INJ SUB-Q SCH (22:53)
[2021-04-11] MEDS: MELATONIN 5 MG TAB PO SCH (22:53)
[2021-04-12 06:34] LABS: Hepatitis C Virus Antibody Non-Reactive (NonReactive)
[2021-04-12 06:46] LABS: Hepatitis B Surface Antigen Nonreactive (Negative)
[2021-04-12 06:48] LABS: Alanine Aminotransferase 22 units/L (7-56); Albumin 2.9 g/dL (3.9-5); Blood Urea Nitrogen 6 mg/dL (7-17); Calcium 7.8 mg/dL (8.4-10.2); Hemolysis Index 11
[2021-04-12 06:49] LABS: BUN/Creatinine Ratio 15
[2021-04-12] MEDS: DEXAMETHASONE 2 MG TAB PO SCH (09:38)
[2021-04-12] MEDS: FOLIC ACID 1 MG TAB PO SCH (09:39)
[2021-04-12] MEDS: NICOTINE 14 MG/24 HR PATCH TD SCH (09:39)
[2021-04-12] MEDS: PANTOPRAZOLE 40 MG TAB PO SCH (09:39)
[2021-04-12] MEDS: THIAMINE 100 MG TAB PO SCH (09:40)
[2021-04-12] MEDS ORDERED: AZITHROMYCIN 250 MG TAB PO SCH (10:00)
[2021-04-12] MEDS: oxyCODONE /ACETAMINOPHEN 5-325MG TAB PO PRN (10:01)
--- NOTE | 2021-04-12 11:38 | Discharge Summary ---
Providers - Providers Date of Admission: 04/10/21 09:16 Date of discharge: 04/12/21 Attending physician: DIANA COLÓN 04/10/21 06:12 Consult to Physician [CONS] Routine Comment: Dr. Rodriguez spoke with Dr. Culp @ [phone] Consulting Provider: NBA CULP Physician Instructions: Reason For Exam: Liver disease, ascites 04/10/21 06:13 Consult to Physician [CONS] Routine Comment: Dr. Rodriguez spoke with Dr. Canales @ [phone] Consulting Provider: GLENROY CAANLES Physician Instructions: Reason For Exam: pelvic mass 04/10/21 17:52 Consult to Physician [CONS] Routine Comment: Consulting Provider: MARISA IVAN Physician Instructions: Reason For Exam: covid 19 positive Primary care physician: [facility] AGENT Hospitalization Condition: Fair Disposition: 01 HOME / SELF CARE / HOMELESS Time spent for discharge: 34 minutes Core Measure Documentation - Palliative Care Palliative Care/ Comfort Measures: Not Applicable - Core Measures Any of the following diagnoses?: none Exam - Constitutional Vitals: Temp Pulse Resp BP Pulse Ox 97.8 F 70 18 108/66 94 04/12/21 00:33 04/12/21 06:39 04/12/21 00:33 04/12/21 06:39 04/12/21 06:39 Plan Activity: advance as tolerated Weight Bearing Status: Weight Bear as Tolerated Diet: low fat, low salt Additional Instructions: Tumor markers are ordered for you but results are pending. Please f/u with Obg/chaser helper in one week to f/u your pending results. Abstinance from alcohol and tobacco. Follow up with: JEANETTE KIESR MD [Primary Care Provider] - 3-5 Days SASKIA LUONG MD [Staff Physician] - 7 Days Prescriptions: Folic Acid [Folvite] 1 mg PO DAILY #30 tablet Nicotine [Habitrol] 14 mg TD DAILY #7 patch Melatonin [Melatonin 5MG TAB] 5 mg PO HS #30 tablet oxyCODONE /ACETAMINOPHEN [Percocet 5/325 mg] 1 tab PO Q6HR PRN #10 tablet PRN Reason: PAIN Pantoprazole [Protonix TAB] 40 mg PO QDAC #30 tablet Thiamine [Vitamin B-1] 100 mg PO QDAY #30 tablet
[2021-04-12 18:19] VITALS: BP 123/81
== END 2021-04-12 20:00 | disposition home or self-care (01) | DRG 177 ==
LOC: ED 19:04 → 3A 04-10 09:16
PROVIDERS: ADMIT Internal Medicine; ATTEND Internal Medicine
DX: U07.1 COVID-19 (principal); J12.82 Pneumonia due to coronavirus disease 2019; R18.8 Other ascites; K86.1 Other chronic pancreatitis; F10.10 Alcohol abuse, uncomplicated; K70.9 Alcoholic liver disease, unspecified
CPT/HCPCS: 36415; 71275; 74022; 74177; 74181; 76856; 80053; 80074; 82106; 82378; 82728; 82947; 83615; 83690; 84145; 84443; 84484; 84702; 84703; 85025; 85379; 86140; 86300; 86301; 86304; 87116; 87430; 93005; G0378; Q0162; J0456; J0696; J1650; J7030; J8540; Q9967; U0003

== ENCOUNTER 2021-04-24 12:30 | Emergency (ER) | payer SELFPAY ==
[2021-04-24] MEDS ORDERED: SODIUM CHLORIDE 0.9% 1000 ML 1,000 ML IV ONE ×2 (17:41→18:35)
[2021-04-24] MEDS ORDERED: ONDANSETRON 4 MG/2 ML INJ IV ONE (17:45)
--- NOTE | 2021-04-24 17:45 | Event Note ---
ED Screening Note Date of service: 04/24/21 Time: 17:43 ED Screening Note: 36-year-old -[place] female who has a history of pancreatitis alcohol abuse presents to the emergency room complaining of nausea vomiting epigastric pain. She states she also has a history of thyroid disease. Patient reports that she had her recent hospital visit for the same complaint. Patient reports that the pain is better when she holds her stomach. Patient reports that she feels like she is losing weight. She also reports that when she lays on her side that her stomach feels like it is fluid in it This initial assessment/diagnostic orders/clinical plan/treatment(s) is/are subject to change based on patients health status, clinical progression and re- assessment by fellow clinical providers in the ED. Further treatment and workup at subsequent clinical providers discretion. Patient/guardian urged not to elope from the ED as their condition may be serious if not clinically assessed and managed. Initial orders include: CBC CMP urinalysis lipase hCG INT normal saline Zofran
[2021-04-24 18:05] LABS: Hematocrit 28.1 % (30.3-42.9); Mean Corpuscular HGB Conc 32 % (30-34); Mean Corpuscular Volume 104 fl (79-97); Platelet Count 200 K/mm3 (140-440); Red Blood Count 2.69 M/mm3 (3.65-5.03); Red Cell Distribution Width 17.4 % (13.2-15.2)
[2021-04-24 18:25] LABS: Bilirubin,Urine MOD (Negative); Blood,Urine NEG (Negative); Color,Urine Amber (Yellow); Mucus,Urine FEW /HPF; RBC,Urine < 1.0 /HPF (0.0-6.0); WBC,Urine < 1.0 /HPF (0.0-6.0)
[2021-04-24 18:27] LABS: Alanine Aminotransferase 20 units/L (7-56); Albumin 3.3 g/dL (3.9-5); Blood Urea Nitrogen 5 mg/dL (7-17); Calcium 9.3 mg/dL (8.4-10.2); Hemolysis Index 4
[2021-04-24 18:28] LABS: BUN/Creatinine Ratio 13
[2021-04-24] MEDS ORDERED: MORPHINE 4 MG/1 ML INJ IV ONE ×2 (18:35→22:33)
[2021-04-24] MEDS ORDERED: PANTOPRAZOLE 40 MG INJ IV ONE (18:35)
[2021-04-24 18:36] LABS: Ictotest,Urine Negative (Negative)
--- NOTE | 2021-04-24 18:37 | Emergency Department Report ---
ED Abdominal Pain HPI - General Chief Complaint: Abdominal Pain Stated Complaint: ABDOMINAL PAIN Time Seen by Provider: 04/24/21 18:15 Source: patient, EMS Mode of arrival: Ambulatory Limitations: No Limitations - History of Present Illness Initial Comments: 36-year-old female the past medical history of chronic alcohol abuse, thyroid disease, pancreatitis, and asthma presents to the hospital complaints of persistent abdominal pain radiating to chest with nausea and vomiting. Patient reports recent epistaxis with hematemesis this am. Patient was admitted here April 09 to the for abdominal pain with nausea and vomiting. CT showed abnormal liver findings consistent with alcohol induced liver disease. MRI showed hepatomegaly without masses on the liver. Normal alpha-fetoprotein leve. patient was also diagnosed with COVID-pneumonia during admission and had incidental finding of pelvic mass concerning for ovarian neoplasm with RESCUE BOAT OPERATOR input and follow-up advised. Patient states she was only able to obtain Percocet upon discharge which is not helping her pain. She did not receive the prescriptions and the pharmacy did not receive transmitted prescriptions from the hospital. she does continue to drink alcoholdrink yesterday. She denies history of alcohol withdrawal tremors. Patient does endorse recent weight loss Severity scale (0 -10): 10 - Related Data Previous Rx's Medication Instructions Recorded Last Taken Type Nicotine [Habitrol] 14 mg TD DAILY #7 patch 04/12/21 Unknown Rx Folic Acid [Folvite] 1 mg PO DAILY #30 tablet 04/24/21 Unknown Rx Melatonin [Melatonin 5MG TAB] 5 mg PO HS #30 tablet 04/24/21 Unknown Rx Multivitamin with Iron 1 each PO DAILY #30 tab 04/24/21 Unknown Rx [Multivitamins with Iron] Ondansetron [Zofran Odt] 4 mg PO Q8HR PRN #20 tab.rapdis 04/24/21 Unknown Rx Pantoprazole [Protonix TAB] 40 mg PO QDAC #30 tablet 04/24/21 Unknown Rx Thiamine [Vitamin B-1] 100 mg PO QDAY #30 tablet 04/24/21 Unknown Rx oxyCODONE /ACETAMINOPHEN [Percocet 1 tab PO Q6HR PRN #10 tablet 04/24/21 Unknown Rx 5/325 mg] Allergies Allergy/AdvReac Type Severity Reaction Status Date / Time No Known Allergies Allergy Unverified 11/10/18 20:12 ED Review of Systems ROS: Stated complaint: ABDOMINAL PAIN Other details as noted in HPI Comment: All other systems reviewed and negative ED Past Medical Hx - Past Medical History Previous Medical History?: Yes Hx Congestive Heart Failure: No Hx Diabetes: No Hx Asthma: Yes Hx COPD: No Additional medical history: Pancreatitis; chronic alcohol abuse. Thyroid disease - Social History Smoking Status: Light Tobacco Smoker - Medications Home Medications: Home Medications Medication Instructions Recorded Confirmed Last Taken Type Nicotine [Habitrol] 14 mg TD DAILY #7 patch 04/12/21 Unknown Rx Folic Acid [Folvite] 1 mg PO DAILY #30 tablet 04/24/21 Unknown Rx Melatonin [Melatonin 5MG TAB] 5 mg PO HS #30 tablet 04/24/21 Unknown Rx Multivitamin with Iron 1 each PO DAILY #30 tab 04/24/21 Unknown Rx [Multivitamins with Iron] Ondansetron [Zofran Odt] 4 mg PO Q8HR PRN #20 tab.rapdis 04/24/21 Unknown Rx Pantoprazole [Protonix TAB] 40 mg PO QDAC #30 tablet 04/24/21 Unknown Rx Thiamine [Vitamin B-1] 100 mg PO QDAY #30 tablet 04/24/21 Unknown Rx oxyCODONE /ACETAMINOPHEN [Percocet 1 tab PO Q6HR PRN #10 tablet 04/24/21 Unknown Rx 5/325 mg] ED Physical Exam - General Limitations: No Limitations - Other Other exam information: General: No acute distress Head: Atraumatic Eyes: Icteric sclera ENT: Moist mucous membranes Neck: Normal appearance, no midline tenderness Chest: Clear to auscultation bilaterally CV: Regular rate and rhythm Abdomen: Soft, normal bowel sounds, epigastric abdominal tenderness, nondistended, no rebound or guarding Back: Normal inspection Extremity: Normal inspection, full range of motion Neuro: Alert O x 3, no facial asymmetry, speech clear, no gross motor sensory deficit, no tremor Psych: Appropriate behavior Skin: No rash ED Course Vital Signs 04/24/21 04/24/21 04/24/21 12:31 22:37 23:02 Temperature 98.4 F 97.8 F Pulse Rate 104 H 88 Respiratory 14 16 14 Rate Blood Pressure 140/82 111/77 [Left] O2 Sat by Pulse 99 100 Oximetry ED Medical Decision Making - Lab Data Result diagrams: 04/24/21 17:46 04/24/21 17:46 Lab Results 04/24/21 04/24/21 04/24/21 Range/Units 17:46 17:46 17:46 WBC 15.4 H (4.5-11.0) K/mm3 RBC 2.69 L (3.65-5.03) M/mm3 Hgb 9.0 L (10.1-14.3) gm/dl Hct 28.1 L (30.3-42.9) % MCV 104 H (79-97) fl MCH 34 H (28-32) pg MCHC 32 (30-34) % RDW 17.4 H (13.2-15.2) % Plt Count 200 (140-440) K/mm3 Add Manual Diff Complete Total Counted 100 Seg Neuts % (Manual) 82.0 H (40.0-70.0) % Band Neutrophils % 0 % Lymphocytes % (Manual) 8.0 L (13.4-35.0) % Reactive Lymphs % (Man) 0 % Monocytes % (Manual) 8.0 H (0.0-7.3) % Eosinophils % (Manual) 0 (0.0-4.3) % Basophils % (Manual) 1.0 (0.0-1.8) % Metamyelocytes % 0 % Myelocytes % 0 % Promyelocytes % 1.0 % Blast Cells % 0 % Nucleated RBC % Not Reportable Seg Neutrophils # Man 12.6 H (1.8-7.7) K/mm3 Band Neutrophils # 0.0 K/mm3 Lymphocytes # (Manual) 1.2 (1.2-5.4) K/mm3 Abs React Lymphs (Man) 0.0 K/mm3 Monocytes # (Manual) 1.2 H (0.0-0.8) K/mm3 Eosinophils # (Manual) 0.0 (0.0-0.4) K/mm3 Basophils # (Manual) 0.2 H (0.0-0.1) K/mm3 Metamyelocytes # 0.0 K/mm3 Myelocytes # 0.0 K/mm3 Promyelocytes # 0.2 K/mm3 Blast Cells # 0.0 K/mm3 WBC Morphology Not Reportable Hypersegmented Neuts Not Reportable Hyposegmented Neuts Not Reportable Hypogranular Neuts Not Reportable Smudge Cells Not Reportable Toxic Granulation Not Reportable Toxic Vacuolation Not Reportable Dohle Bodies Not Reportable Pelger-Huet Anomaly Not Reportable Marcelo Rods Not Reportable Platelet Estimate Consistent w auto Clumped Platelets Not Reportable Plt Clumps, EDTA Not Reportable Large Platelets Not Reportable Giant Platelets Not Reportable Platelet Satelliting Not Reportable Plt Morphology Comment Not Reportable RBC Morphology Not Reportable Dimorphic RBCs Not Reportable Polychromasia Not Reportable Hypochromasia Not Reportable Poikilocytosis 1+ Anisocytosis 1+ Microcytosis Not Reportable Macrocytosis 1+ Spherocytes Not Reportable Pappenheimer Bodies Not Reportable Sickle Cells Not Reportable Target Cells 1+ Tear Drop Cells 1+ Ovalocytes Not Reportable Helmet Cells Not Reportable Perkins-[place] Bodies Not Reportable Martin Rings Not Reportable Valdez Cells Not Reportable Bite Cells Not Reportable Crenated Cell Not Reportable Elliptocytes Not Reportable Acanthocytes (Spur) Not Reportable Rouleaux Not Reportable Hemoglobin C Crystals Not Reportable Schistocytes Not Reportable Malaria parasites Not Reportable Cecilio Bodies Not Reportable Hem Pathologist Commnt No Sodium 135 L (137-145) mmol/L Potassium 3.5 L (3.6-5.0) mmol/L Chloride 101.1 (98-107) mmol/L Carbon Dioxide 22 (22-30) mmol/L Anion Gap 15 mmol/L BUN 5 L (7-17) mg/dL Creatinine 0.4 L (0.6-1.2) mg/dL Estimated GFR > 60 ml/min BUN/Creatinine Ratio 13 % Glucose 104 H (65-100) mg/dL Calcium 9.3 (8.4-10.2) mg/dL Magnesium (1.7-2.3) mg/dL Total Bilirubin 4.80 H (0.1-1.2) mg/dL AST 96 H (5-40) units/L ALT 20 (7-56) units/L Alkaline Phosphatase 400 H (35-129) units/L Total Protein 8.5 H (6.3-8.2) g/dL Albumin 3.3 L (3.9-5) g/dL Albumin/Globulin Ratio 0.6 % Lipase 144 H (13-60) units/L HCG, Quant < 2 (0-4) mIU/mL Urine Color (Yellow) Urine Turbidity (Clear) Urine pH (5.0-7.0) Ur Specific [place] (1.003-1.030) Urine Protein (Negative) mg/dL Urine Glucose (UA) (Negative) mg/dL Urine Ketones (Negative) mg/dL Urine Blood (Negative) Urine Nitrite (Negative) Urine Bilirubin (Negative) Urine Ictotest (Negative) Urine Urobilinogen (<2.0) mg/dL Ur Leukocyte Esterase (Negative) Urine WBC (Auto) (0.0-6.0) /HPF Urine RBC (Auto) (0.0-6.0) /HPF Urine Mucus /HPF 04/24/21 04/24/21 Range/Units Unknown Unknown WBC (4.5-11.0) K/mm3 RBC (3.65-5.03) M/mm3 Hgb (10.1-14.3) gm/dl Hct (30.3-42.9) % MCV (79-97) fl MCH (28-32) pg MCHC (30-34) % RDW (13.2-15.2) % Plt Count (140-440) K/mm3 Add Manual Diff Total Counted Seg Neuts % (Manual) (40.0-70.0) % Band Neutrophils % % Lymphocytes % (Manual) (13.4-35.0) % Reactive Lymphs % (Man) % Monocytes % (Manual) (0.0-7.3) % Eosinophils % (Manual) (0.0-4.3) % Basophils % (Manual) (0.0-1.8) % Metamyelocytes % % Myelocytes % % Promyelocytes % % Blast Cells % % Nucleated RBC % Seg Neutrophils # Man (1.8-7.7) K/mm3 Band Neutrophils # K/mm3 Lymphocytes # (Manual) (1.2-5.4) K/mm3 Abs React Lymphs (Man) K/mm3 Monocytes # (Manual) (0.0-0.8) K/mm3 Eosinophils # (Manual) (0.0-0.4) K/mm3 Basophils # (Manual) (0.0-0.1) K/mm3 Metamyelocytes # K/mm3 Myelocytes # K/mm3 Promyelocytes # K/mm3 Blast Cells # K/mm3 WBC Morphology Hypersegmented Neuts Hyposegmented Neuts Hypogranular Neuts Smudge Cells Toxic Granulation Toxic Vacuolation Dohle Bodies Pelger-Huet Anomaly Marcelo Rods Platelet Estimate Clumped Platelets Plt Clumps, EDTA Large Platelets Giant Platelets Platelet Satelliting Plt Morphology Comment RBC Morphology Dimorphic RBCs Polychromasia Hypochromasia Poikilocytosis Anisocytosis Microcytosis Macrocytosis Spherocytes Pappenheimer Bodies Sickle Cells Target Cells Tear Drop Cells Ovalocytes Helmet Cells Perkins-Van [place] Bodies Martin Rings Valdez Cells Bite Cells Crenated Cell Elliptocytes Acanthocytes (Spur) Rouleaux Hemoglobin C Crystals Schistocytes Malaria parasites Cecilio Bodies Hem Pathologist Commnt Sodium (137-145) mmol/L Potassium (3.6-5.0) mmol/L Chloride (98-107) mmol/L Carbon Dioxide (22-30) mmol/L Anion Gap mmol/L BUN (7-17) mg/dL Creatinine (0.6-1.2) mg/dL Estimated GFR ml/min BUN/Creatinine Ratio % Glucose (65-100) mg/dL Calcium (8.4-10.2) mg/dL Magnesium 1.20 L (1.7-2.3) mg/dL Total Bilirubin (0.1-1.2) mg/dL AST (5-40) units/L ALT (7-56) units/L Alkaline Phosphatase (35-129) units/L Total Protein (6.3-8.2) g/dL Albumin (3.9-5) g/dL Albumin/Globulin Ratio % Lipase (13-60) units/L HCG, Quant (0-4) mIU/mL Urine Color Eliz (Yellow) Urine Turbidity Clear (Clear) Urine pH 6.0 (5.0-7.0) Ur Specific [place] 1.034 H (1.003-1.030) Urine Protein 100 mg/dl (Negative) mg/dL Urine Glucose (UA) Neg (Negative) mg/dL Urine Ketones Tr (Negative) mg/dL Urine Blood Neg (Negative) Urine Nitrite Neg (Negative) Urine Bilirubin Mod (Negative) Urine Ictotest Negative (Negative) Urine Urobilinogen 4.0 (<2.0) mg/dL Ur Leukocyte Esterase Neg (Negative) Urine WBC (Auto) < 1.0 (0.0-6.0) /HPF Urine RBC (Auto) < 1.0 (0.0-6.0) /HPF Urine Mucus Few /HPF - Radiology Data Radiology results: report reviewed CT ABDOMEN AND PELVIS WITH CONTRAST INDICATION / CLINICAL INFORMATION: Unspecified abdominal pain, nausea with vomiting. TECHNIQUE: Axial CT images were obtained through the abdomen and pelvis after 100 cc Omnipaque [address] scans at this location are performed using CT dose reduction for ALARA by means of automated exposure control. COMPARISON: CT abdomen and pelvis with contrast from 04/10/2021. FINDINGS: LOWER CHEST: Previously seen bibasilar groundglass opacities have nearly completely resolved. There is dependent bilateral atelectasis. No other significant abnormality. LIVER: There is similar hepatomegaly with improved generalized heterogeneity throughout the liver without a dominant suspicious liver mass. GALLBLADDER: No significant abnormality. BILE DUCTS: No significant abnormality. PANCREAS: A subcentimeter cystic lesion along the pancreatic tail on image 56 o f series 2 is favored to be benign. No other significant abnormality. SPLEEN: No significant abnormality. ADRENALS: No significant abnormality. RIGHT KIDNEY/URETER: No significant abnormality. LEFT KIDNEY/URETER: No significant abnormality. STOMACH/SMALL BOWEL: No significant abnormality. COLON: No significant abnormality. APPENDIX: No significant abnormality. PERITONEUM: Small amount of ascites along the abdomen and pelvis has decreased in the interval. No free air. No fluid collection. LYMPH NODES: No significant adenopathy. VASCULATURE: No significant abnormality. URINARY BLADDER: No significant abnormality. REPRODUCTIVE ORGANS: No significant abnormality. ADDITIONAL FINDINGS: Unchanged right hemipelvic mass with central calcification measuring 6.1 x 4.0 cm on image 152 of series 2. BONES: No significant abnormality IMPRESSION: 1. No new acute abnormality to explain the patient's complaints. 2. Improved aeration of the lungs. 3. Improvement of previously seen ascites. 4. Improvement of previously seen hepatic heterogeneity. Please correlate with liver function testing. 5. No other significant interval changes. - Medical Decision Making 36-year female with a history of alcohol abuse with elevated LFTs and history of pancreatitis presented hospital planing of persistent abdominal pain, nausea, and vomiting. Patient continues to drink alcohol. For some reason she states she did not see the prescriptions or was unable to obtain her meds with exception of Percocet. Patient does report an episode of epistaxis with hematemesis. Anemia noted however, guaiac negative without active signs of bleeding. Patient treated in the ED with Zofran, Pepcid, normal saline, p.o. potassium, IV magnesium and morphine with improvement in symptoms. Repeat CT scan shows improved findings compared to previous with persistent pelvic mass. Once again patient encouraged to stop drinking (outpatient resources will be provided) follow-up with RESCUE BOAT OPERATOR regarding pelvic mass follow-up, and outpatient follow-up with GI will also be provided. Patient provided p.o. potassium and IV magnesium in the ED patient will be prescribed medications for symptom relief At time of disposition patient is not exhibiting signs or symptoms of alcohol withdrawal and repeat vital signs in normal range Critical Care Time: No Critical care attestation.: If time is entered above; I have spent that time in minutes in the direct care of this critically ill patient, excluding procedure time. ED Disposition Clinical Impression: Pelvic mass, Hypokalemia, Alcohol abuse, Alcoholic hepatitis, Hypomagnesemia, A lcoholic gastritis, Anemia Disposition: 01 HOME / SELF CARE / HOMELESS Is pt being admited?: No Does the pt Need Aspirin: No Condition: Stable Instructions: Alcoholic Liver Disease, Gastritis, Adult, Alcohol Abuse and Nutrition, Abdominal Pain (ED) Additional Instructions: It is important you follow-up with a RESCUE BOAT OPERATOR specialist for further investigation of your pelvic mass identified during your CAT scan. Your symptoms are likely related to alcohol abuse/dependence. You have been provided resources to assist with alcohol detox. Outpatient follow-up with primary care doctor, GI doctor, and RESCUE BOAT OPERATOR have been provided. Take the medications as prescribed. Return if symptoms worsen as indicated by your discharge instructions SUBSTANCE ABUSE PROGRAMS: [facility]: Location: [place], [place] [facility] Address: [address] [place] [address] [facility]: Address: [address] [place] [address] [facility]: Address: [address] [place] [address] [facility]: Address: [address] [place] [address] Prescriptions: Folic Acid [Folvite] 1 mg PO DAILY #30 tablet Melatonin [Melatonin 5MG TAB] 5 mg PO HS #30 tablet Multivitamin with Iron [Multivitamins with Iron] 1 each PO DAILY #30 tab oxyCODONE /ACETAMINOPHEN [Percocet 5/325 mg] 1 tab PO Q6HR PRN #10 tablet PRN Reason: PAIN Pantoprazole [Protonix TAB] 40 mg PO QDAC #30 tablet Thiamine [Vitamin B-1] 100 mg PO QDAY #30 tablet Ondansetron [Zofran Odt] 4 mg PO Q8HR PRN #20 tab.rapdis PRN Reason: Nausea And Vomiting Referrals: [facility] [Provider Group] - 3-5 Days (Primary care clinic) [facility] [Outside] - 3-5 Days SASKIA LUONG MD [Staff Physician] - 3-5 Days (RESCUE BOAT OPERATOR MD ) VINICIUS BATISTA MD [Staff Physician] - 3-5 Days (RESCUE BOAT OPERATOR oncology ) NATALIE CAIN MD [Staff Physician] - 3-5 Days (GI specialist) JEANETTE KISER MD [Primary Care Provider] - 3-5 Days Forms: Work/School Release Form(ED) Time of Disposition: 22:46
[2021-04-24 18:50] LABS: Eosinophils % (Manual) 0 % (0.0-4.3); Macrocytosis 1+; Promyelocytes # (Manual) 0.2 K/mm3; Total Cells Counted 100
[2021-04-24 18:51] LABS: Anisocytosis 1+; Platelet Estimate Consistent w Auto; Poikilocytosis 1+; Target Cells 1+; Tear Drop Cells 1+
--- NOTE | 2021-04-24 20:36 | Cat Scan Report ---
CT ABDOMEN AND PELVIS WITH CONTRAST INDICATION / CLINICAL INFORMATION: Unspecified abdominal pain, nausea with vomiting. TECHNIQUE: Axial CT images were obtained through the abdomen and pelvis after 100 cc Omnipaque [address] scans at this location are performed using CT dose reduction for ALARA by means of automated exposure control. COMPARISON: CT abdomen and pelvis with contrast from 04/10/2021. FINDINGS: LOWER CHEST: Previously seen bibasilar groundglass opacities have nearly completely resolved. There i s dependent bilateral atelectasis. No other significant abnormality. LIVER: There is similar hepatomegaly with improved generalized heterogeneity throughout the liver wit hout a dominant suspicious liver mass. GALLBLADDER: No significant abnormality. BILE DUCTS: No significant abnormality. PANCREAS: A subcentimeter cystic lesion along the pancreatic tail on image 56 of series 2 is favored to be benign. No other significant abnormality. SPLEEN: No significant abnormality. ADRENALS: No significant abnormality. RIGHT KIDNEY/URETER: No significant abnormality. LEFT KIDNEY/URETER: No significant abnormality. STOMACH/SMALL BOWEL: No significant abnormality. COLON: No significant abnormality. APPENDIX: No significant abnormality. PERITONEUM: Small amount of ascites along the abdomen and pelvis has decreased in the interval. No fr ee air. No fluid collection. LYMPH NODES: No significant adenopathy. VASCULATURE: No significant abnormality. URINARY BLADDER: No significant abnormality. REPRODUCTIVE ORGANS: No significant abnormality. ADDITIONAL FINDINGS: Unchanged right hemipelvic mass with central calcification measuring 6.1 x 4.0 c m on image 152 of series 2. BONES: No significant abnormality IMPRESSION: 1. No new acute abnormality to explain the patient's complaints. 2. Improved aeration of the lungs. 3. Improvement of previously seen ascites. 4. Improvement of previously seen hepatic heterogeneity. Please correlate with liver function testing . 5. No other significant interval changes. Signer Name: Juan Wells MD Signed: 04/24/2021 8:31 PM Workstation Name: [id number]
[2021-04-24] MEDS ORDERED: POTASSIUM CHLORIDE ER 20 MEQ TAB PO ONE (20:50)
[2021-04-24] MEDS ORDERED: MAGNESIUM SULFATE 2 GM/50 ML BAG IV ONE (21:12)
[2021-04-24 22:38] VITALS: BP 111/77
== END 2021-04-24 23:34 | disposition home or self-care (01) ==
LOC: ED 12:30
DX: K70.10 Alcoholic hepatitis without ascites (principal); E87.6 Hypokalemia; E83.42 Hypomagnesemia; K29.20 Alcoholic gastritis without bleeding; D64.9 Anemia, unspecified; R19.00 Intra-abdominal and pelvic swelling, mass and lump, unspecified site; J45.909 Unspecified asthma, uncomplicated; F17.200 Nicotine dependence, unspecified, uncomplicated
CPT/HCPCS: 36415; 74177; 80053; 81001; 82271; 83690; 83735; 84702; 85007; 85025; 96361; 96365; 96375; 96376; 99284; C9113; J2270; J2405; J3475; J7030; Q9967; Q0162

== ENCOUNTER 2021-10-05 11:52 | Inpatient (IN) | payer SELFPAY ==
[2021-10-05] MEDS ORDERED: ONDANSETRON 4 MG/2 ML INJ IV ONE (12:11)
[2021-10-05] MEDS ORDERED: SODIUM CHLORIDE 0.9% 1000 ML 1,000 ML IV ONE (12:11)
[2021-10-05] MEDS ORDERED: PANTOPRAZOLE 40 MG INJ IV ONE ×2 (12:11→15:34)
[2021-10-05] MEDS ORDERED: MORPHINE 4 MG/1 ML INJ IV ONE ×2 (12:11→16:28)
--- NOTE | 2021-10-05 12:13 | Event Note ---
ED Screening Note Date of service: 10/05/21 Time: 12:12 ED Screening Note: Patient presents with complaints of sudden onset of abdominal pain History of alcohol induced pancreatitis Patient states symptoms ongoing for 2 days and that she has been drinking daily Patient throwing up blood on exam This initial assessment/diagnostic orders/clinical plan/treatment(s) is/are subject to change based on patients health status, clinical progression and re- assessment by fellow clinical providers in the ED. Further treatment and workup at subsequent clinical providers discretion. Patient/guardian urged not to elope from the ED as their condition may be serious if not clinically assessed and managed. Initial orders include: Labs CT Meds
[2021-10-05 12:48] LABS: Hematocrit 29.1 % (30.3-42.9); Hemoglobin 9.8 gm/dl (10.1-14.3); Mean Corpuscular HGB Conc 34 % (30-34); Mean Corpuscular Volume 108 fl (79-97); Platelet Count 269 K/mm3 (140-440); Red Blood Count 2.69 M/mm3 (3.65-5.03); Red Cell Distribution Width 18.8 % (13.2-15.2)
[2021-10-05 13:01] LABS: Alanine Aminotransferase 32 units/L (7-56); Albumin 3.1 g/dL (3.9-5); Blood Urea Nitrogen 5 mg/dL (7-17); Hemolysis Index 3
--- NOTE | 2021-10-05 13:06 | XRay Report ---
CHEST 2 VIEWS INDICATION / CLINICAL INFORMATION: chest pain. COMPARISON: Prior chest radiograph 04/09/2021 FINDINGS: SUPPORT DEVICES: None. HEART / MEDIASTINUM: No significant abnormality. LUNGS / PLEURA: No significant pulmonary or pleural abnormality. No pneumothorax. ADDITIONAL FINDINGS: No significant additional findings. IMPRESSION: 1. No acute findings. Signer Name: Carol Jordan MD Signed: 10/05/2021 1:01 PM Workstation Name: [id number]
[2021-10-05 13:07] LABS: BUN/Creatinine Ratio 10
[2021-10-05 13:33] LABS: Anisocytosis 1+; Eosinophils % (Manual) 0 % (0.0-4.3); Hypochromasia 1+; Poikilocytosis 1+; Total Cells Counted 100
[2021-10-05 13:34] LABS: Macrocytosis 1+; Platelet Estimate Consistent w Auto; Target Cells 1+
[2021-10-05] MEDS ORDERED: MORPHINE 4 MG/1 ML INJ ONE (15:22)
[2021-10-05] MEDS ORDERED: SODIUM CHLORIDE 0.9% 1000 ML 1,000 ML ONE (15:22)
[2021-10-05] MEDS ORDERED: ONDANSETRON 4 MG/2 ML INJ ONE (15:22)
[2021-10-05 15:35] LABS: Bacteria,Urine 3+ /HPF (Negative); Hyaline Casts,Urine 8 /LPF; Mucus,Urine 3+ /HPF
[2021-10-05 15:40] LABS: Bilirubin,Urine Moderate (Negative); Blood,Urine Negative (Negative); Color,Urine Amber (Yellow); Ictotest,Urine Positive (Negative)
[2021-10-05] MEDS ORDERED: POTASSIUM CHLORIDE ER 20 MEQ TAB PO ONE (16:28)
[2021-10-05 16:40] LABS: HCG Qualitative,Urine Negative (Negative)
[2021-10-05] MEDS ORDERED: MAGNESIUM SULFATE 2 GM/50 ML BAG IV ONE (16:56)
[2021-10-05] MEDS ORDERED: HYDROmorphone 1 MG/1 ML INJ IV ONE ×2 (17:52→21:51)
[2021-10-05] MEDS ORDERED: THIAMINE 100 MG, FOLIC ACID 1 MG, MULTIPLE VITAMIN INJ, ADULT 10 ML in SODIUM CHLORIDE ... IV ONE (17:52)
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
--- NOTE | 2021-10-05 19:32 | Cat Scan Report ---
CT abdomen pelvis w con INDICATION / CLINICAL INFORMATION: mid abdominal pain, hx of pancreatitis. TECHNIQUE: Axial CT imaging of abdomen and pelvis was obtained with 100 cc Omni 300 IV contrast. Coronal and sag ittal reformatted imaging obtained and reviewed. All CT scans at this location are performed using C T dose reduction for ALARA by means of automated exposure control. COMPARISON: Recent CT abdomen pelvis 04/24/2021 FINDINGS: CT abdomen with contrast shows marked heterogeneity of the liver. This has been noted on prior studie s. Spleen is unremarkable. Gallbladder remains distended but unchanged in appearance from prior exams . Small amount of ascites is seen surrounding the liver, as noted on prior exams. No biliary dilatati on. No acute finding related to the pancreas. Abdominal aorta is normal. Both kidneys and adrenal gla nds are unremarkable. CT pelvis with contrast demonstrates a small amount of ascites within the pelvis. There is oval soft tissue density in the posterior cul-de-sac of the pelvis measuring approximately 5.6 cm with central high density focus of uncertain etiology. This was not present on the prior exam. The remainder of th e pelvis is unremarkable. A normal appendix is present in the right lower quadrant. GI tract is unrem arkable. Visualized lung bases do not demonstrate any acute pulmonary or pleural disease. Review of osseous structures does not demonstrate acute osseous abnormality. IMPRESSION: 1. No significant inflammatory changes noted associated with the pancreas. The appearance of the panc reas is unchanged compared with 04/24/2021 CT scan. Please correlate with pancreatic enzyme levels as minimal inflammatory change may be difficult to appreciate in this patient.. 2. As noted on multiple prior studies, there is marked heterogeneity of the liver parenchyma. Small a mount of ascites is present in the right upper quadrant and within the pelvis. 3. Soft tissue density with central calcification has developed in the posterior cul-de-sac of the pe lvis of uncertain etiology. This may represent collection of complex fluid rather than true mass. Signer Name: Carol Jordan MD Signed: 10/05/2021 7:27 PM Workstation Name: [id number]
[2021-10-05] MEDS: POTASSIUM CHLORIDE 10 MEQ 10 MEQ/100 ML BAG IV SCH (22:30)
[2021-10-05] MEDS ORDERED: ONDANSETRON 4 MG/2 ML INJ IV PRN (22:57)
[2021-10-05] MEDS ORDERED: ACETAMINOPHEN 325 MG TAB PO PRN (22:57)
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
[2021-10-05] MEDS ORDERED: MAGNESIUM SULFATE 3 GM in SODIUM CHLORIDE 0.9% 100 ML IV ONE (23:11)
[2021-10-06] MEDS: POTASSIUM CHLORIDE 10 MEQ 10 MEQ/100 ML BAG IV SCH ×4 (01:25→16:46)
[2021-10-06] MEDS: MORPHINE 2 MG/1 ML INJ IV PRN ×2 (03:38→09:29)
[2021-10-06 06:57] LABS: Mean Corpuscular HGB Conc 34 % (30-34); Mean Corpuscular Volume 110 fl (79-97); Platelet Count 274 K/mm3 (140-440); Red Blood Count 2.46 M/mm3 (3.65-5.03)
[2021-10-06 07:13] LABS: Blood Urea Nitrogen 4 mg/dL (7-17); Calcium 8.9 mg/dL (8.4-10.2); Hemolysis Index 58
[2021-10-06 07:16] LABS: BUN/Creatinine Ratio 20
[2021-10-06 08:40] LABS: Anisocytosis 2+; Band Neutrophils # (Manual) 0.2 K/mm3; Eosinophils % (Manual) 0 % (0.0-4.3); Giant Platelets Rare; Hypochromasia 1+; Macrocytosis 2+; Platelet Clumps Rare; Platelet Estimate Consistent w Auto; Target Cells 1+; Total Cells Counted 100
[2021-10-06] MEDS: NICOTINE 14 MG/24 HR PATCH TD SCH (09:29)
[2021-10-06] MEDS: PANTOPRAZOLE 40 MG INJ IV SCH ×3 (09:29→22:52)
[2021-10-06] MEDS ORDERED: MULTIVITAMIN WITH IRON PO SCH (10:00)
[2021-10-06] MEDS ORDERED: THIAMINE 100 MG, FOLIC ACID 1 MG, MULTIPLE VITAMIN INJ, ADULT 10 ML in SODIUM CHLORIDE ... IV ONE ×2 (10:00→20:00)
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
[2021-10-06] MEDS: D5W/0.9% NACL 1,000 ML IV SCH ×2 (12:35→22:15)
--- NOTE | 2021-10-06 13:19 | Progress Note ---
Assessment and Plan Assessment and plan: -- Acute pancreatitis lipase more than 300 NPO. D5 normal saline at the rate of 100 cc/h. Protonix 40 mg IV every 12 hours. GI evaluation. Monitor pancreatic enzymes recheck CBC BMP in the morning --Acute abdominal pain; Multifactorial, acute pancreatitis, chronic alcohol use ascites, Protonix 40 mg IV every 12 hours. Morphine 2 mg IV every 4 hours as needed. GI following --History of chronic alcohol abuse Thiamine, folic acid, multivitamin, banana bag drip Advised smoking cessation counseling Strongly advised to seek alcohol rehabilitation upon discharge Strongly advised to quit alcohol intake --Ongoing tobacco use; Smoking cessation counseling done spent 15 minutes [place] explained to the patient Patient verbalized understanding CT abdomen and pelvis No significant inflammatory changes associated with pancreas same changes since last April 26, multiple prior studies there is marked echogenicity of the liver parenchyma small amount of ascites is present in the right upper quadrant and within the pelvis Soft tissue analysis density for central calcification calcification have --Hypokalemia/replenished Potassium 40 mEq IV x1 dose. To monitor electrolyte check magnesium --Hypomagnesemia/replenished Magnesium 3 g IV x1 dose. Follow electrolytes -- Pelvic fluid collection consult [facility] as well as GI for evaluation. Patient need to follow-up with [facility] oncology. --Pelvic mass consult [facility] as well as GI for evaluation. Patient need to follow-up with [facility] oncology. --Full CODE STATUS --DVT prophylaxis SCD for DVT prophylaxis. Protonix 40 mg IV every 12 hours for GI prophylaxis. We will closely monitor the patient and adjust management as needed DC planning per case management Closely monitor the patient and adjust management as needed Plan of care reviewed with the patient and her nurse 10/07/2021; GI evaluated the patient symptomatic management Closely monitor discharge plan patient is stable Disposition; follow clinically, follow GI evaluation discharged when stable History Interval history: I have seen and examined the patient at the bedside, Patient's chart and medications reviewed Patient was admitted with abdominal pain, acute pancreatitis acute hypokalemia Hyponatremia and lactic acidosis, Patient feels slightly better Complains of generalized body pains, vital signs noted Hospitalist Physical - Constitutional Vitals: Temp Pulse Resp BP Pulse Ox 98.0 F 95 H 20 102/67 96 10/06/21 04:23 10/06/21 04:23 10/06/21 09:59 10/06/21 04:23 10/06/21 04:23 General appearance: Present: no acute distress, well-nourished - EENT Eyes: Present: PERRL, EOM intact - Neck Neck: Present: supple, normal ROM - Respiratory Respiratory effort: normal Respiratory: bilateral: diminished, negative: rales, rhonchi, wheezing - Cardiovascular Rhythm: regular Heart Sounds: Present: S1 & S2 - Extremities Extremities: no ischemia, No edema - Abdominal General gastrointestinal: soft, non-tender, non-distended, normal bowel sounds - Integumentary Integumentary: Present: clear, warm - Psychiatric Psychiatric: appropriate mood/affect, cooperative - Neurologic Neurologic: moves all extremities Results - Labs CBC & Chem 7: 10/06/21 06:24 10/06/21 06:24 Labs: Laboratory Last Values WBC 16.6 K/mm3 (4.5-11.0) H 10/06/21 06:24 RBC 2.46 M/mm3 (3.65-5.03) L 10/06/21 06:24 Hgb 9.0 gm/dl (10.1-14.3) L 10/06/21 06:24 Hct 27.0 % (30.3-42.9) L 10/06/21 06:24 MCV 110 fl (79-97) H 10/06/21 06:24 MCH 37 pg (28-32) H 10/06/21 06:24 MCHC 34 % (30-34) 10/06/21 06:24 RDW 19.0 % (13.2-15.2) H 10/06/21 06:24 Plt Count 274 K/mm3 (140-440) 10/06/21 06:24 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) Auto Accessories Installer 10/06/21 06:24 Add Manual Diff Complete 10/06/21 06:24 Total Counted 100 10/06/21 06:24 Seg Neuts % (Manual) 94.0 % (40.0-70.0) H 10/06/21 06:24 Band Neutrophils % 1.0 % 10/06/21 06:24 Lymphocytes % (Manual) 0 % (13.4-35.0) L 10/06/21 06:24 Reactive Lymphs % (Man) 0 % 10/06/21 06:24 Monocytes % (Manual) 4.0 % (0.0-7.3) 10/06/21 06:24 Eosinophils % (Manual) 0 % (0.0-4.3) 10/06/21 06:24 Basophils % (Manual) 1.0 % (0.0-1.8) 10/06/21 06:24 Metamyelocytes % 0 % 10/06/21 06:24 Myelocytes % 0 % 10/06/21 06:24 Promyelocytes % 0 % 10/06/21 06:24 Blast Cells % 0 % 10/06/21 06:24 Nucleated RBC % Not Reportable 10/06/21 06:24 Seg Neutrophils # Man 15.6 K/mm3 (1.8-7.7) H 10/06/21 06:24 Band Neutrophils # 0.2 K/mm3 10/06/21 06:24 Lymphocytes # (Manual) 0.0 K/mm3 (1.2-5.4) L 10/06/21 06:24 Abs React Lymphs (Man) 0.0 K/mm3 10/06/21 06:24 Monocytes # (Manual) 0.7 K/mm3 (0.0-0.8) 10/06/21 06:24 Eosinophils # (Manual) 0.0 K/mm3 (0.0-0.4) 10/06/21 06:24 Basophils # (Manual) 0.2 K/mm3 (0.0-0.1) H 10/06/21 06:24 Metamyelocytes # 0.0 K/mm3 10/06/21 06:24 Myelocytes # 0.0 K/mm3 10/06/21 06:24 Promyelocytes # 0.0 K/mm3 10/06/21 06:24 Blast Cells # 0.0 K/mm3 10/06/21 06:24 WBC Morphology Not Reportable 10/06/21 06:24 Hypersegmented Neuts Not Reportable 10/06/21 06:24 Hyposegmented Neuts Not Reportable 10/06/21 06:24 Hypogranular Neuts Not Reportable 10/06/21 06:24 Smudge Cells Not Reportable 10/06/21 06:24 Toxic Granulation Not Reportable 10/06/21 06:24 Toxic Vacuolation Not Reportable 10/06/21 06:24 Dohle Bodies Not Reportable 10/06/21 06:24 Pelger-Huet Anomaly Not Reportable 10/06/21 06:24 Marcelo Rods Not Reportable 10/06/21 06:24 Platelet Estimate Consistent w auto 10/06/21 06:24 Clumped Platelets Rare 10/06/21 06:24 Plt Clumps, EDTA Not Reportable 10/06/21 06:24 Large Platelets Not Reportable 10/06/21 06:24 Giant Platelets Rare 10/06/21 06:24 Platelet Satelliting Not Reportable 10/06/21 06:24 Plt Morphology Comment Not Reportable 10/06/21 06:24 RBC Morphology Not Reportable 10/06/21 06:24 Dimorphic RBCs Not Reportable 10/06/21 06:24 Polychromasia Not Reportable 10/06/21 06:24 Hypochromasia 1+ 10/06/21 06:24 Poikilocytosis Not Reportable 10/06/21 06:24 Anisocytosis 2+ 10/06/21 06:24 Microcytosis Not Reportable 10/06/21 06:24 Macrocytosis 2+ 10/06/21 06:24 Spherocytes Not Reportable 10/06/21 06:24 Pappenheimer Bodies Not Reportable 10/06/21 06:24 Sickle Cells Not Reportable 10/06/21 06:24 Target Cells 1+ 10/06/21 06:24 Tear Drop Cells Not Reportable 10/06/21 06:24 Ovalocytes Not Reportable 10/06/21 06:24 Helmet Cells Not Reportable 10/06/21 06:24 [place] Bodies Not Reportable 10/06/21 06:24 [place] Rings Not Reportable 10/06/21 06:24 [place] Cells Not Reportable 10/06/21 06:24 Bite Cells Not Reportable 10/06/21 06:24 Crenated Cell Not Reportable 10/06/21 06:24 Elliptocytes Not Reportable 10/06/21 06:24 Acanthocytes (Spur) Not Reportable 10/06/21 06:24 Rouleaux Not Reportable 10/06/21 06:24 Hemoglobin C Crystals Not Reportable 10/06/21 06:24 Schistocytes Not Reportable 10/06/21 06:24 Malaria parasites Not Reportable 10/06/21 06:24 Cecilio Bodies Not Reportable 10/06/21 06:24 Hem Pathologist Commnt No 10/06/21 06:24 Sodium 131 mmol/L (137-145) L 10/06/21 06:24 Potassium 3.1 mmol/L (3.6-5.0) L 10/06/21 06:24 Chloride 95.9 mmol/L (98-107) L 10/06/21 06:24 Carbon Dioxide 20 mmol/L (22-30) L 10/06/21 06:24 Anion Gap 18 mmol/L 10/06/21 06:24 BUN 4 mg/dL (7-17) L 10/06/21 06:24 Creatinine 0.2 mg/dL (0.6-1.2) L D 10/06/21 06:24 Estimated GFR > 60 ml/min 10/06/21 06:24 BUN/Creatinine Ratio 20 % 10/06/21 06:24 Glucose 108 mg/dL (65-100) H 10/06/21 06:24 Calcium 8.9 mg/dL (8.4-10.2) 10/06/21 06:24 Magnesium 0.90 mg/dL (1.7-2.3) L* 10/05/21 12:25 Total Bilirubin 7.30 mg/dL (0.1-1.2) H 10/05/21 12:25 AST 118 units/L (5-40) H 10/05/21 12:25 ALT 32 units/L (7-56) 10/05/21 12:25 Alkaline Phosphatase 282 units/L (35-129) H 10/05/21 12:25 Total Protein 8.6 g/dL (6.3-8.2) H 10/05/21 12:25 Albumin 3.1 g/dL (3.9-5) L 10/05/21 12:25 Albumin/Globulin Ratio 0.6 % 10/05/21 12:25 Lipase 355 units/L (13-60) H 10/05/21 12:25 Urine Color Eliz (Yellow) 10/05/21 Unknown Urine Turbidity Hazy (Clear) 10/05/21 Unknown Urine pH 6.0 (5.0-7.0) 10/05/21 Unknown Ur Specific [place] 1.020 (1.003-1.030) 10/05/21 Unknown Urine Protein 30 mg/dl mg/dL (Negative) 10/05/21 Unknown Urine Glucose (UA) Negative mg/dL (Negative) 10/05/21 Unknown Urine Ketones Negative mg/dL (Negative) 10/05/21 Unknown Urine Blood Negative (Negative) 10/05/21 Unknown Urine Nitrite Negative (Negative) 10/05/21 Unknown Ur Reducing Substances Not Reportable 10/05/21 Unknown Urine Bilirubin Moderate (Negative) 10/05/21 Unknown Urine Ictotest Positive (Negative) 10/05/21 Unknown Urine Urobilinogen 2.0 mg/dL (<2.0) 10/05/21 Unknown Ur Leukocyte Esterase Negative (Negative) 10/05/21 Unknown Urine WBC (Auto) 7.0 /HPF (0.0-6.0) H 10/05/21 Unknown Urine RBC (Auto) 2.0 /HPF (0.0-6.0) 10/05/21 Unknown U Epithel Cells (Auto) 6.0 /HPF (0-13.0) 10/05/21 Unknown Urine Bacteria (Auto) 3+ /HPF (Negative) 10/05/21 Unknown Hyaline Casts 8 /LPF 10/05/21 Unknown Urine Mucus 3+ /HPF 10/05/21 Unknown Urine HCG, Qual Negative (Negative) 10/05/21 Unknown Microbiology: Microbiology 10/05/21 17:49 Stool Stool Occult Blood (NAEL) - Final [place]/IV: Voiding Method Toilet Active Medications - Current Medications Current Medications: Generic Name Dose Route Start Last Admin Trade Name Freq PRN Reason Stop Dose Admin Acetaminophen 650 mg 10/05/21 22:57 10/06/21 06:19 Acetaminophen 325 Mg Tab PO 650 mg Q4H PRN Administration Pain MILD(1-3)/Fever >100.5/DRAKE Folic Acid 1 mg 10/07/21 10:00 Folic Acid 1 Mg Tab PO DAILY SIMON Dextrose/Sodium Chloride 1,000 mls @ 100 mls/hr 10/05/21 23:00 10/06/21 12:35 D5ns IV 100 mls/hr DIRECT SIMON Administration Thiamine HCl 100 mg/ Folic 1,011.2 mls @ 250 mls/hr 10/06/21 10:00 10/06/21 09:30 Acid 1 mg/ Multivitamins/ IV 10/06/21 14:02 250 mls/hr Minerals 10 ml/ Sodium ONCE ONE Administration Chloride Morphine Sulfate 2 mg 10/05/21 22:57 10/06/21 09:29 Morphine 2 Mg/1 Ml Inj IV 2 mg Q4H PRN Administration Pain, Moderate (4-6) Morphine Sulfate 4 mg 10/05/21 22:57 Morphine 4 Mg/1 Ml Inj IV Q4H PRN Pain , Severe (7-10) Multivitamins/Minerals 1 each 10/07/21 10:00 Multivitamins,Ther W-Minerals Tab PO QDAY [facility] Nicotine 14 mg 10/06/21 10:00 10/06/21 09:29 Nicotine 14 Mg/24 Hr Patch TD 14 mg DAILY SIMON Administration Ondansetron HCl 4 mg 10/05/21 22:57 Ondansetron 4 Mg/2 Ml Inj IV Q8H PRN Nausea And Vomiting Pantoprazole Sodium 40 mg 10/06/21 10:00 10/06/21 09:29 Pantoprazole 40 Mg Inj IV 40 mg BID SIMON Administration Sodium Chloride 10 ml 10/06/21 10:00 10/06/21 09:30 Sodium Chloride 0.9% 10 Ml Flush Syringe IV 10 ml BID SIMON Administration Sodium Chloride 10 ml 10/05/21 22:57 Sodium Chloride 0.9% 10 Ml Flush Syringe IV PRN PRN LINE FLUSH Thiamine HCl 100 mg 10/07/21 10:00 Thiamine 100 Mg Tab PO QDAY [facility]
--- NOTE | 2021-10-06 13:21 | Electrocardiograph Report ---
[facility], [place] Test Date: 2021-10-05 Test Time: 12:16:56 Pat Name: SARAH MITTAL Department: Room: A364 Gender: F Engineering Technical Analyst: Bobo BROWN RN : 1985 Requested By: ED DOC Order Number: [id number] Reading MD: Ricco Bennett Measurements Intervals [place] Rate: 87 P: 44 NC: 174 QRS: 21 QRSD: 90 T: 26 QT: 406 QTc: 488 Interpretive Statements Sinus rhythm Probable left atrial enlargement Compared to ECG 04/12/2021 12:33:46 No significant changes Electronically Signed On 10-06-2021 13:21:17 EDT by Ricco Bennett
--- NOTE | 2021-10-06 13:31 | Electrocardiograph Report ---
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
[2021-10-06] MEDS: MORPHINE 4 MG/1 ML INJ IV PRN ×2 (14:29→20:52)
[2021-10-06] MEDS ORDERED: POTASSIUM CHLORIDE ER 20 MEQ TAB PO ONE (17:49)
[2021-10-06] MEDS ORDERED: ZOLPIDEM 5 MG TAB PO ONE (22:03)
[2021-10-07 05:43] LABS: Hematocrit 23.3 % (30.3-42.9); Mean Corpuscular HGB Conc 34 % (30-34); Platelet Count 247 K/mm3 (140-440); Red Blood Count 2.11 M/mm3 (3.65-5.03)
[2021-10-07] MEDS: MORPHINE 4 MG/1 ML INJ IV PRN (05:45)
[2021-10-07 05:46] LABS: Mean Corpuscular Volume 110 fl (79-97); Red Cell Distribution Width 20.3 % (13.2-15.2)
[2021-10-07 06:06] LABS: Alanine Aminotransferase 22 units/L (7-56); Albumin 2.7 g/dL (3.9-5); Blood Urea Nitrogen 4 mg/dL (7-17); Calcium 7.7 mg/dL (8.4-10.2); Hemolysis Index 0
[2021-10-07 06:24] LABS: BUN/Creatinine Ratio 8
[2021-10-07 06:51] LABS: Anisocytosis 2+; Basophils % (Manual) 0 % (0.0-1.8); Eosinophils % (Manual) 0 % (0.0-4.3); Giant Platelets Rare; Hypochromasia 1+; Macrocytosis 2+; Platelet Clumps Rare; Platelet Estimate Consistent w Auto; Target Cells 1+; Total Cells Counted 100
--- NOTE | 2021-10-07 07:44 | Gastroenterology Progress Note ---
Assessment and Plan Patient appears to have alcohol related pancreatitis and hepatitis, labs improving nicely today. Continue hydration and enteral feeds Patient is clinically gradually improving, may gradually advance diet as tolerated and anticipate discharge in the next 1 to 2 days with recommendation for outpatient alcohol cessation education program - Patient Problems (1) Alcohol abuse Current Visit: Yes Status: Acute (2) Abdominal pain Current Visit: No Status: Acute Qualifiers: Abdominal location: generalized Qualified Code(s): R10.84 - Generalized abdominal pain (3) Acute on chronic pancreatitis Current Visit: No Status: Acute (4) Ascites Current Visit: No Status: Acute Qualifiers: Ascites type: other type Qualified Code(s): R18.8 - Other ascites (5) Liver disease due to alcohol Current Visit: No Status: Acute Subjective Date of service: 10/07/21 Principal diagnosis: etoh pancreatitis Interval history: Tolerating liquid diet Still with significant abdominal pain though slightly improved compared to yesterday. Reports pain is epigastric area radiates to the chest and the entire abdomen and around to the right flank. Severe. Sharp and cramping. Constant. Worse with better with opiate pain medication here. Duration days Objective - Constitutional Vitals: Temp Pulse Resp BP Pulse Ox 98.8 F 103 H 20 104/61 95 10/07/21 07:38 10/07/21 07:38 10/07/21 07:38 10/07/21 07:38 10/07/21 07:38 General appearance: no acute distress - EENT Eyes: EOM intact - Neck Neck: supple - Respiratory Respiratory effort: normal - Cardiovascular Rhythm: other (Mild tachycardia) - Gastrointestinal General gastrointestinal: Present: soft, tender - Integumentary Integumentary: Present: dry - Neurologic Neurological: alert and oriented x3 - Psychiatric Psychiatric: appropriate mood/affect - Labs CBC & Chem 7: 10/07/21 05:10 10/07/21 05:10 Labs: Laboratory Results - last 24 hr 10/06/21 10/07/21 10/07/21 06:24 05:10 05:10 WBC 16.5 H RBC 2.11 L Hgb 8.0 L Hct 23.3 L MCV 110 H MCH 38 H MCHC 34 RDW 20.3 H Plt Count 247 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) 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 Add Manual Diff Complete Complete Total Counted 100 100 Seg Neuts % (Manual) 94.0 H Band Neutrophils % 1.0 0 Lymphocytes % (Manual) 0 L 6.0 L Reactive Lymphs % (Man) 0 0 Monocytes % (Manual) 4.0 1.0 Eosinophils % (Manual) 0 0 Basophils % (Manual) 1.0 0 Metamyelocytes % 0 0 Myelocytes % 0 0 Promyelocytes % 0 0 Blast Cells % 0 0 Nucleated RBC % Not Reportable 1.0 H Seg Neutrophils # Man 15.6 H 15.3 H Band Neutrophils # 0.2 0.0 Lymphocytes # (Manual) 0.0 L 1.0 L Abs React Lymphs (Man) 0.0 0.0 Monocytes # (Manual) 0.7 0.2 Eosinophils # (Manual) 0.0 0.0 Basophils # (Manual) 0.2 H 0.0 Metamyelocytes # 0.0 0.0 Myelocytes # 0.0 0.0 Promyelocytes # 0.0 0.0 Blast Cells # 0.0 0.0 WBC Morphology Not Reportable Not Reportable Hypersegmented Neuts Not Reportable Not Reportable Hyposegmented Neuts Not Reportable Not Reportable Hypogranular Neuts Not Reportable Not Reportable Smudge Cells Not Reportable Not Reportable Toxic Granulation Not Reportable Not Reportable Toxic Vacuolation Not Reportable Not Reportable Dohle Bodies Not Reportable Not Reportable Pelger-Huet Anomaly Not Reportable Not Reportable Marcelo Rods Not Reportable Not Reportable Platelet Estimate Consistent w auto Consistent w auto Clumped Platelets Rare Rare Plt Clumps, EDTA Not Reportable Not Reportable Large Platelets Not Reportable Not Reportable Giant Platelets Rare Rare Platelet Satelliting Not Reportable Not Reportable Plt Morphology Comment Not Reportable Not Reportable RBC Morphology Not Reportable Not Reportable Dimorphic RBCs Not Reportable Not Reportable Polychromasia Not Reportable Not Reportable Hypochromasia 1+ 1+ Poikilocytosis Not Reportable Not Reportable Anisocytosis 2+ 2+ Microcytosis Not Reportable Not Reportable Macrocytosis 2+ 2+ Spherocytes Not Reportable Not Reportable Pappenheimer Bodies Not Reportable Not Reportable Sickle Cells Not Reportable Not Reportable Target Cells 1+ 1+ Tear Drop Cells Not Reportable Not Reportable Ovalocytes Not Reportable Not Reportable Helmet Cells Not Reportable Not Reportable [place] Bodies Not Reportable Not Reportable [place] Rings Not Reportable Not Reportable Blank Cells Not Reportable Not Reportable Bite Cells Not Reportable Not Reportable Crenated Cell Not Reportable Not Reportable Elliptocytes Not Reportable Not Reportable Acanthocytes (Spur) Not Reportable Not Reportable Rouleaux Not Reportable Not Reportable Hemoglobin C Crystals Not Reportable Not Reportable Schistocytes Not Reportable Not Reportable Malaria parasites Not Reportable Not Reportable Cecilio Bodies Not Reportable Not Reportable Hem Pathologist Commnt No No Sodium 132 L Potassium 3.3 L Chloride 101.6 Carbon Dioxide 19 L Anion Gap 15 BUN 4 L Creatinine 0.5 L D Estimated GFR > 60 BUN/Creatinine Ratio 8 Glucose 126 H Calcium 7.7 L Total Bilirubin 6.60 H AST 77 H ALT 22 Alkaline Phosphatase 218 H Ammonia Total Protein 6.8 D Albumin 2.7 L Albumin/Globulin Ratio 0.7 Amylase 32 Lipase 44 10/07/21 05:10 WBC RBC Hgb Hct MCV MCH MCHC RDW Plt Count 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) Add Manual Diff Total Counted Seg Neuts % (Manual) Band Neutrophils % Lymphocytes % (Manual) Reactive Lymphs % (Man) Monocytes % (Manual) Eosinophils % (Manual) Basophils % (Manual) Metamyelocytes % Myelocytes % Promyelocytes % Blast Cells % Nucleated RBC % Seg Neutrophils # Man Band Neutrophils # Lymphocytes # (Manual) Abs React Lymphs (Man) Monocytes # (Manual) Eosinophils # (Manual) Basophils # (Manual) Metamyelocytes # Myelocytes # Promyelocytes # Blast Cells # WBC Morphology Hypersegmented Neuts Hyposegmented Neuts Hypogranular Neuts Smudge Cells Toxic Granulation Toxic Vacuolation Dohle Bodies Pelger-Huet Anomaly Marcelo Rods Platelet Estimate Clumped Platelets Plt Clumps, EDTA Large Platelets Giant Platelets Platelet Satelliting Plt Morphology Comment RBC Morphology Dimorphic RBCs Polychromasia Hypochromasia Poikilocytosis Anisocytosis Microcytosis Macrocytosis Spherocytes Pappenheimer Bodies Sickle Cells Target Cells Tear Drop Cells Ovalocytes Helmet Cells [place] Bodies [place] Rings Blank Cells Bite Cells Crenated Cell Elliptocytes Acanthocytes (Spur) Rouleaux Hemoglobin C Crystals Schistocytes Malaria parasites Cecilio Bodies Hem Pathologist Commnt Sodium Potassium Chloride Carbon Dioxide Anion Gap BUN Creatinine Estimated GFR BUN/Creatinine Ratio Glucose Calcium Total Bilirubin AST ALT Alkaline Phosphatase Ammonia 89.0 H Total Protein Albumin Albumin/Globulin Ratio Amylase Lipase
[2021-10-07] MEDS: NICOTINE 14 MG/24 HR PATCH TD SCH (10:30)
[2021-10-07] MEDS: THIAMINE 100 MG TAB PO SCH (10:30)
[2021-10-07] MEDS: FOLIC ACID 1 MG TAB PO SCH (10:30)
[2021-10-07] MEDS: PANTOPRAZOLE 40 MG INJ IV SCH ×2 (10:30→21:29)
[2021-10-07] MEDS: MULTIVITAMINS,THER W-MINERALS TAB PO SCH (10:30)
[2021-10-07] MEDS: D5W/0.9% NACL 1,000 ML IV SCH (10:33)
--- NOTE | 2021-10-07 10:55 | Progress Note ---
Assessment and Plan Assessment and plan: Acute pancreatitis Transaminitis Abdominal pain Ascites EtOH liver disease 10/07/2021. Patient appears to have alcohol related pancreatitis and hepatitis. LFTs continue to improve. Lipase has normalized. Continue hydration and enteral feeds Patient is clinically gradually improving, may gradually advance diet as tolerated and anticipate discharge in the next 1 to 2 days with recommendation for outpatient alcohol cessation education program History Interval history: No new issues overnight. Patient still complaining of significant abdominal [place] Hospitalist Physical - Constitutional Vitals: Temp Pulse Resp BP Pulse Ox 98.8 F 103 H 20 104/61 95 10/07/21 07:38 10/07/21 07:38 10/07/21 07:38 10/07/21 07:38 10/07/21 07:38 General appearance: Present: no acute distress, well-nourished - EENT Eyes: Present: PERRL, EOM intact ENT: hearing intact, clear oral mucosa, dentition normal - Neck Neck: Present: supple, normal ROM - Respiratory Respiratory effort: normal Respiratory: bilateral: CTA - Cardiovascular Rhythm: regular Heart Sounds: Present: S1 & S2. Absent: gallop, rub - Extremities Extremities: no ischemia, No edema, Full ROM - Abdominal General gastrointestinal: soft, non-tender, non-distended, normal bowel sounds - Integumentary Integumentary: Present: clear, warm, dry - Neurologic Neurologic: CNII-XII intact, moves all extremities Results - Labs CBC & Chem 7: 10/07/21 05:10 10/07/21 05:10 Labs: Laboratory Last Values WBC 16.5 K/mm3 (4.5-11.0) H 10/07/21 05:10 RBC 2.11 M/mm3 (3.65-5.03) L 10/07/21 05:10 Hgb 8.0 gm/dl (10.1-14.3) L 10/07/21 05:10 Hct 23.3 % (30.3-42.9) L 10/07/21 05:10 MCV 110 fl (79-97) H 10/07/21 05:10 MCH 38 pg (28-32) H 10/07/21 05:10 MCHC 34 % (30-34) 10/07/21 05:10 RDW 20.3 % (13.2-15.2) H 10/07/21 05:10 Plt Count 247 K/mm3 (140-440) 10/07/21 05:10 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) [employer] 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0-0.9) H 10/07/21 05:10 Seg Neutrophils # Man 15.3 K/mm3 (1.8-7.7) H 10/07/21 05:10 Band Neutrophils # 0.0 K/mm3 10/07/21 05:10 Lymphocytes # (Manual) 1.0 K/mm3 (1.2-5.4) L 10/07/21 05:10 Abs React Lymphs (Man) 0.0 K/mm3 10/07/21 05:10 Monocytes # (Manual) 0.2 K/mm3 (0.0-0.8) 10/07/21 05:10 Eosinophils # (Manual) 0.0 K/mm3 (0.0-0.4) 10/07/21 05:10 Basophils # (Manual) 0.0 K/mm3 (0.0-0.1) 10/07/21 05:10 Metamyelocytes # 0.0 K/mm3 10/07/21 05:10 Myelocytes # 0.0 K/mm3 10/07/21 05:10 Promyelocytes # 0.0 K/mm3 10/07/21 05:10 Blast Cells # 0.0 K/mm3 10/07/21 05:10 WBC Morphology Not Reportable 10/07/21 05:10 Hypersegmented Neuts Not Reportable 10/07/21 05:10 Hyposegmented Neuts Not Reportable 10/07/21 05:10 Hypogranular Neuts Not Reportable 10/07/21 05:10 Smudge Cells Not Reportable 10/07/21 05:10 Toxic Granulation Not Reportable 10/07/21 05:10 Toxic Vacuolation Not Reportable 10/07/21 05:10 Dohle Bodies Not Reportable 10/07/21 05:10 Pelger-Huet Anomaly Not Reportable 10/07/21 05:10 Marcelo Rods Not Reportable 10/07/21 05:10 Platelet Estimate Consistent w auto 10/07/21 05:10 Clumped Platelets Rare 10/07/21 05:10 Plt Clumps, EDTA Not Reportable 10/07/21 05:10 Large Platelets Not Reportable 10/07/21 05:10 Giant Platelets Rare 10/07/21 05:10 Platelet Satelliting Not Reportable 10/07/21 05:10 Plt Morphology Comment Not Reportable 10/07/21 05:10 RBC Morphology Not Reportable 10/07/21 05:10 Dimorphic RBCs Not Reportable 10/07/21 05:10 Polychromasia Not Reportable 10/07/21 05:10 Hypochromasia 1+ 10/07/21 05:10 Poikilocytosis Not Reportable 10/07/21 05:10 Anisocytosis 2+ 10/07/21 05:10 Microcytosis Not Reportable 10/07/21 05:10 Macrocytosis 2+ 10/07/21 05:10 Spherocytes Not Reportable 10/07/21 05:10 Pappenheimer Bodies Not Reportable 10/07/21 05:10 Sickle Cells Not Reportable 10/07/21 05:10 Target Cells 1+ 10/07/21 05:10 Tear Drop Cells Not Reportable 10/07/21 05:10 Ovalocytes Not Reportable 10/07/21 05:10 Helmet Cells Not Reportable 10/07/21 05:10 [place] Bodies Not Reportable 10/07/21 05:10 [place] Rings Not Reportable 10/07/21 05:10 Blank Cells Not Reportable 10/07/21 05:10 Bite Cells Not Reportable 10/07/21 05:10 Crenated Cell Not Reportable 10/07/21 05:10 Elliptocytes Not Reportable 10/07/21 05:10 Acanthocytes (Spur) Not Reportable 10/07/21 05:10 Rouleaux Not Reportable 10/07/21 05:10 Hemoglobin C Crystals Not Reportable 10/07/21 05:10 Schistocytes Not Reportable 10/07/21 05:10 Malaria parasites Not Reportable 10/07/21 05:10 Cecilio Bodies Not Reportable 10/07/21 05:10 Hem Pathologist Commnt No 10/07/21 05:10 Sodium 132 mmol/L (137-145) L 10/07/21 05:10 Potassium 3.3 mmol/L (3.6-5.0) L 10/07/21 05:10 Chloride 101.6 mmol/L (98-107) 10/07/21 05:10 Carbon Dioxide 19 mmol/L (22-30) L 10/07/21 05:10 Anion Gap 15 mmol/L 10/07/21 05:10 BUN 4 mg/dL (7-17) L 10/07/21 05:10 Creatinine 0.5 mg/dL (0.6-1.2) L D 10/07/21 05:10 Estimated GFR > 60 ml/min 10/07/21 05:10 BUN/Creatinine Ratio 8 % 10/07/21 05:10 Glucose 126 mg/dL (65-100) H 10/07/21 05:10 Calcium 7.7 mg/dL (8.4-10.2) L 10/07/21 05:10 Magnesium 0.90 mg/dL (1.7-2.3) L* 10/05/21 12:25 Total Bilirubin 6.60 mg/dL (0.1-1.2) H 10/07/21 05:10 AST 77 units/L (5-40) H 10/07/21 05:10 ALT 22 units/L (7-56) 10/07/21 05:10 Alkaline Phosphatase 218 units/L (35-129) H 10/07/21 05:10 Ammonia 89.0 umol/L (25-60) H 10/07/21 05:10 Total Protein 6.8 g/dL (6.3-8.2) D 10/07/21 05:10 Albumin 2.7 g/dL (3.9-5) L 10/07/21 05:10 Albumin/Globulin Ratio 0.7 % 10/07/21 05:10 Amylase 32 units/L (27-131) 10/07/21 05:10 Lipase 44 units/L (13-60) 10/07/21 05:10 Urine Color Eliz (Yellow) 10/05/21 Unknown Urine Turbidity Hazy (Clear) 10/05/21 Unknown Urine pH 6.0 (5.0-7.0) 10/05/21 Unknown Ur Specific [place] 1.020 (1.003-1.030) 10/05/21 Unknown Urine Protein 30 mg/dl mg/dL (Negative) 10/05/21 Unknown Urine Glucose (UA) Negative mg/dL (Negative) 10/05/21 Unknown Urine Ketones Negative mg/dL (Negative) 10/05/21 Unknown Urine Blood Negative (Negative) 10/05/21 Unknown Urine Nitrite Negative (Negative) 10/05/21 Unknown Ur Reducing Substances Not Reportable 10/05/21 Unknown Urine Bilirubin Moderate (Negative) 10/05/21 Unknown Urine Ictotest Positive (Negative) 10/05/21 Unknown Urine Urobilinogen 2.0 mg/dL (<2.0) 10/05/21 Unknown Ur Leukocyte Esterase Negative (Negative) 10/05/21 Unknown Urine WBC (Auto) 7.0 /HPF (0.0-6.0) H 10/05/21 Unknown Urine RBC (Auto) 2.0 /HPF (0.0-6.0) 10/05/21 Unknown U Epithel Cells (Auto) 6.0 /HPF (0-13.0) 10/05/21 Unknown Urine Bacteria (Auto) 3+ /HPF (Negative) 10/05/21 Unknown Hyaline Casts 8 /LPF 10/05/21 Unknown Urine Mucus 3+ /HPF 10/05/21 Unknown Urine HCG, Qual Negative (Negative) 10/05/21 Unknown [place]/IV: Voiding Method Toilet Active Medications - Current Medications Current Medications: Generic Name Dose Route Start Last Admin Trade Name Amador PRN Reason Stop Dose Admin Acetaminophen 650 mg 10/05/21 22:57 10/06/21 06:19 Acetaminophen 325 Mg Tab PO 650 mg Q4H PRN Administration Pain MILD(1-3)/Fever >100.5/DRAKE Folic Acid 1 mg 10/07/21 10:00 10/07/21 10:30 Folic Acid 1 Mg Tab PO 1 mg DAILY SIMON Administration Dextrose/Sodium Chloride 1,000 mls @ 100 mls/hr 10/05/21 23:00 10/07/21 10:33 D5ns IV 100 mls/hr DIRECT SIMON Administration Morphine Sulfate 2 mg 10/05/21 22:57 10/06/21 09:29 Morphine 2 Mg/1 Ml Inj IV 2 mg Q4H PRN Administration Pain, Moderate (4-6) Morphine Sulfate 4 mg 10/05/21 22:57 10/07/21 05:45 Morphine 4 Mg/1 Ml Inj IV 4 mg Q4H PRN Administration Pain , Severe (7-10) Multivitamins/Minerals 1 each 10/07/21 10:00 10/07/21 10:30 Multivitamins,Ther W-Minerals Tab PO 1 each QDAY SIMON Administration Nicotine 14 mg 10/06/21 10:00 10/07/21 10:30 Nicotine 14 Mg/24 Hr Patch TD 14 mg DAILY SIMON Administration Ondansetron HCl 4 mg 10/05/21 22:57 Ondansetron 4 Mg/2 Ml Inj IV Q8H PRN Nausea And Vomiting Pantoprazole Sodium 40 mg 10/06/21 10:00 10/07/21 10:30 Pantoprazole 40 Mg Inj IV 40 mg BID SIMON Administration Sodium Chloride 10 ml 10/06/21 10:00 10/07/21 10:30 Sodium Chloride 0.9% 10 Ml Flush Syringe IV 10 ml BID SIMON Administration Sodium Chloride 10 ml 10/05/21 22:57 10/07/21 05:46 Sodium Chloride 0.9% 10 Ml Flush Syringe IV 10 ml PRN PRN Administration LINE FLUSH Thiamine HCl 100 mg 10/07/21 10:00 10/07/21 10:30 Thiamine 100 Mg Tab PO 100 mg QDAY SIMON Administration
[2021-10-07] MEDS: MORPHINE 2 MG/1 ML INJ IV PRN ×2 (16:05→20:16)
[2021-10-08] MEDS: MORPHINE 2 MG/1 ML INJ IV PRN ×2 (00:14→05:26)
[2021-10-08 05:31] VITALS: BP 105/59
[2021-10-08 08:49] LABS: Blood Urea Nitrogen 4 mg/dL (7-17); Calcium 7.6 mg/dL (8.4-10.2); Hemolysis Index 3
[2021-10-08 08:57] LABS: BUN/Creatinine Ratio 10
--- NOTE | 2021-10-08 09:50 | Discharge Summary ---
Providers - Providers Date of Admission: 10/05/21 22:58 Date of discharge: 10/08/21 Attending physician: RITIKA AVILA 10/05/21 22:07 Consult to Physician [CONS] Urgent Comment: Consulting Provider: LEIGH BERNARDO Physician Instructions: Reason For Exam: pelvic mass vs fluid collection 10/05/21 23:13 Consult to Physician [CONS] Routine Comment: Consulting Provider: SEJAL JONES Physician Instructions: Reason For Exam: gib Primary care physician: CLAUDIA LITTLEJOHN Hospitalization Reason for admission: pancreatitis Condition: Stable Hospital course: Is a pleasant 36-year-old female, medical history of alcohol abuse pancreatitis who comes for severe abdominal pain nausea vomiting She reports with the she "overdid it" with her alcohol consumption. The patient was admitted with diagnosis of acute pancreatitis, transaminitis, abdominal pain, EtOH liver disease. GI saw the patient in consultation and reported that the patient appears to have alcohol related pancreatitis and hepatitis. LFTs improved throughout the hospitalization. Lipase normalized. Patient received IV fluid hydration and started back on p.o. which she tolerated well. Diet was advanced. Patient was counseled on alcohol cessation and was given recommendation for outpatient alcohol cessation education program. Dedicated discharge time 32 minutes Disposition: HOME / SELF CARE / HOMELESS Final Discharge Diagnosis (Prints w/discharge instructions): acute pancreatitis, transaminitis, abdominal pain, EtOH liver disease. Core Measure Documentation - Palliative Care Palliative Care/ Comfort Measures: Not Applicable - Core Measures Any of the following diagnoses?: none Exam - Constitutional Vitals: Temp Pulse Resp BP Pulse Ox 98.0 F 87 18 105/59 97 10/08/21 05:28 10/08/21 05:28 10/08/21 05:28 10/08/21 05:28 10/08/21 05:28 General appearance: Present: no acute distress, well-nourished - EENT Eyes: Present: PERRL ENT: hearing intact, clear oral mucosa - Neck Neck: Present: supple, normal ROM - Respiratory Respiratory effort: normal Respiratory: bilateral: CTA - Cardiovascular Heart Sounds: Present: S1 & S2. Absent: rub, click - Extremities Extremities: pulses symmetrical, No edema Peripheral Pulses: within normal limits - Abdominal General gastrointestinal: Present: soft, non-tender, non-distended, normal bowel sounds Female genitourinary: Present: normal - Integumentary Integumentary: Present: clear, warm, dry - Musculoskeletal Musculoskeletal: gait normal, strength equal bilaterally - Psychiatric Psychiatric: appropriate mood/affect, intact judgment & insight - Neurologic Neurologic: CNII-XII intact, moves all extremities Plan Activity: advance as tolerated Weight Bearing Status: Weight Bear as Tolerated Diet: regular Follow up with: CLAUDIA LITTLEJOHN MD [Primary Care Provider] - 7 Days ANDRY REGAN MD [Staff Physician] - 7 Days Prescriptions: oxyCODONE /ACETAMINOPHEN [Percocet 5/325] 1 tab PO Q4HR #8 tab
[2021-10-08] MEDS ORDERED: POTASSIUM CHLORIDE ER 20 MEQ TAB PO SCH (10:00)
[2021-10-08] MEDS: D5W/0.9% NACL 1,000 ML IV SCH (10:47)
[2021-10-08] MEDS: MORPHINE 4 MG/1 ML INJ IV PRN (10:48)
[2021-10-08] MEDS: MULTIVITAMINS,THER W-MINERALS TAB PO SCH (10:49)
[2021-10-08] MEDS: NICOTINE 14 MG/24 HR PATCH TD SCH (10:49)
[2021-10-08] MEDS: THIAMINE 100 MG TAB PO SCH (10:49)
[2021-10-08] MEDS: FOLIC ACID 1 MG TAB PO SCH (10:49)
[2021-10-08] MEDS: PANTOPRAZOLE 40 MG INJ IV SCH (10:49)
[2021-10-08] MEDS ORDERED: POTASSIUM CHLORIDE 10 MEQ 10 MEQ/100 ML BAG IV ONE (11:00)
--- NOTE | 2021-10-08 11:34 | Gastroenterology Progress Note ---
Assessment and Plan Patient appears to have alcohol related pancreatitis and hepatitis, labs not yet resulted from today Regarding the above as long as repeat labs are stable/improving she would be fine for discharge with outpatient follow-up and alcohol cessation education Regarding anemia, no overt bleeding, as long as hemoglobin on today's labs remained stable can discharge with outpatient follow-up - Patient Problems (1) Alcohol abuse Current Visit: Yes Status: Acute (2) Abdominal pain Current Visit: No Status: Acute Qualifiers: Abdominal location: generalized Qualified Code(s): R10.84 - Generalized abdominal pain (3) Acute on chronic pancreatitis Current Visit: No Status: Acute (4) Ascites Current Visit: No Status: Acute Qualifiers: Ascites type: other type Qualified Code(s): R18.8 - Other ascites (5) Liver disease due to alcohol Current Visit: No Status: Acute Subjective Date of service: 10/08/21 Principal diagnosis: etoh pancreatitis Interval history: Tolerating liquid diet, she reports abdominal pain continue to improve, today is better than yesterday Reports pain is epigastric area radiates to the chest and the entire abdomen and around to the right flank. Moderate sharp and cramping. Improving Duration days Objective - Constitutional Vitals: Temp Pulse Resp BP Pulse Ox 98.0 F 87 18 105/59 97 10/08/21 05:28 10/08/21 05:28 10/08/21 05:28 10/08/21 05:28 10/08/21 05:28 General appearance: no acute distress - EENT Eyes: scleral icterus - Neck Neck: supple - Respiratory Respiratory effort: normal - Cardiovascular Rhythm: regular - Gastrointestinal General gastrointestinal: Present: soft, tender - Labs CBC & Chem 7: 10/07/21 05:10 10/08/21 07:38 Labs: Laboratory Results - last 24 hr 10/08/21 07:38 Sodium 132 L Potassium 3.0 L Chloride 104.8 Carbon Dioxide 15 L Anion Gap 15 BUN 4 L Creatinine 0.4 L Estimated GFR > 60 BUN/Creatinine Ratio 10 Glucose 97 Calcium 7.6 L
[2021-10-08 11:54] LABS: Hematocrit 23.8 % (30.3-42.9); Mean Corpuscular HGB Conc 34 % (30-34); Mean Corpuscular Volume 110 fl (79-97); Platelet Count 265 K/mm3 (140-440); Red Blood Count 2.16 M/mm3 (3.65-5.03); Red Cell Distribution Width 20.7 % (13.2-15.2)
[2021-10-08 11:56] LABS: Anisocytosis 2+; Eosinophils % (Manual) 0 % (0.0-4.3); Hypochromasia 1+; Macrocytosis 1+; Platelet Estimate Consistent w Auto; Target Cells 1+; Total Cells Counted 100
[2021-10-08] MEDS ORDERED: PANTOPRAZOLE 40 MG TAB PO SCH (16:30)
== END 2021-10-08 14:08 | disposition home or self-care (01) | DRG 439 ==
LOC: ED 11:52 → 3A 22:58 → UNDODISIN 10-08 13:55
PROVIDERS: ADMIT Hospitalist; ATTEND Hospitalist
DX: K85.90 Acute pancreatitis without necrosis or infection, unspecified (principal); R18.8 Other ascites; E87.6 Hypokalemia; F10.10 Alcohol abuse, uncomplicated; E83.42 Hypomagnesemia; J45.909 Unspecified asthma, uncomplicated; Y90.9 Presence of alcohol in blood, level not specified; K70.9 Alcoholic liver disease, unspecified; K86.1 Other chronic pancreatitis; F17.200 Nicotine dependence, unspecified, uncomplicated; Z71.6 Tobacco abuse counseling; Z82.49 Family history of ischemic heart disease and other diseases of the circulatory system
CPT/HCPCS: 36415; 71046; 74177; 80048; 80053; 81001; 81025; 82140; 82150; 82271; 83690; 83735; 85007; 85025; 93005; G0378; J3490; C9113; J1170; J2270; J2405; J3411; J3475; J3480; J7030; J7042; Q9967